=== PATIENT | male | born 1955 | race Caucasian/White ===

== ENCOUNTER 2023-04-01 15:45 | Emergency (ER) | payer OTHER ==
[~2023-04-01] VITALS: Ht 177.8 cm; Wt 29.7 kg
[2023-04-01 17:25] LABS: Basophils # (auto) 0.1 10 ^3/uL (0-0.2); Basophils % (auto) 0.5 % (0.0-2.0); Eosinophils # (auto) 0 10 ^3/uL (0-0.8); Eosinophils % (auto) 0.1 % (0.0-7.0); Hematocrit 44.5 % (41.0-53.0); Hemoglobin 14.9 g/dL (13.5-17.5); Lymphocytes # (auto) 1.4 10 ^3/uL (0.4-5.4); Lymphocytes % (auto) 13.7 % (10.0-50.0); Mean Corpuscular Hemoglobin 29.1 pg (28.0-32.0); Mean Corpuscular Hgb Conc. 33.5 g/dL (32.0-36.0); Mean Corpuscular Volume 86.9 fL (80.0-100.0); Monocytes # (auto) 0.5 10 ^3/uL (0-1.3); Monocytes % (auto) 4.4 % (0.0-12.0); Neutrophils # (auto) 8.5 10 ^3/uL (1.6-8.6); Neutrophils % (auto) 81.3 % (37.0-80.0); Red Blood Cells 5.12 10^6/uL (4.5-5.90); Red Cell Distribution Width 14.3 % (11.8-14.3); White Blood Cell 10.4 10^3/uL (4.4-10.8)
[2023-04-01 17:41] LABS: Alanine Aminotransferase 54 U/L (7-40); Alkaline Phosphatase 110 U/L (46-116); Anion Gap 10 (5-15); Aspartate Aminotransferase 30 U/L (13-40); BUN/Creatinine Ratio 13.1 (10.0-20.0); Bilirubin, Total 0.8 mg/dL (0.2-1.0); Blood Urea Nitrogen 19 mg/dL (9-23); Calcium 10.2 mg/dL (8.5-10.1); Carbon Dioxide 26 mmol/L (20-30); Chloride 103 mmol/L (98-107); Glucose 228 mg/dL (74-106); Potassium 4.9 mmol/L (3.5-5.1); Sodium 139 mmol/L (136-145); Total Protein 7.8 g/dL (5.7-8.2)
[2023-04-01 18:20] LABS: Urine Bacteria NONE SEEN /hpf (None Seen); Urine Blood Negative /uL (Negative); Urine Clarity Clear (Clear); Urine Color Yellow (Yellow); Urine Mucus FEW (None Seen); Urine Protein, UAD TRACE (Negative); Urine Specific Gravity 1.028 (1.001-1.035); Urine Urobilinogen Normal (Negative); Urine WBC <1 /hpf (0 - 3)
[2023-04-01] MEDS ORDERED: PANTOPRAZOLE 40 MG/10 ML VIAL INJ IV ONE (22:00)
[2023-04-01] MEDS ORDERED: SODIUM CHLORIDE 0.9% 1,000 ML IVB ONE (22:00)
[2023-04-01] MEDS ORDERED: ONDANSETRON HCL 4 MG/2 ML VIAL IV ONE (22:00)
[2023-04-02 00:43] VITALS: BP 161/95; PULSE 101; RESP 18; TEMP 98.1; O2SAT 98
[2023-04-02] MEDS ORDERED: ONDANSETRON HCL 4 MG/2 ML VIAL IV PRN (07:30)
[2023-04-02] MEDS ORDERED: LABETALOL HCL 5 MG/ML 4ML SYRINGE IV PRN (07:30)
== END 2023-04-02 01:16 | disposition left against medical advice (07) ==
LOC: ER 15:45
DX: R53.1 Weakness (principal); R11.10 Vomiting, unspecified; E11.65 Type 2 diabetes mellitus with hyperglycemia; I10 Essential (primary) hypertension; M54.2 Cervicalgia
CPT/HCPCS: 36415; 70450; 71045; 71250; 72125; 74176; 80053; 81001; 82962; 83880; 84484; 85025; 93005; 96361; 96374; 96375; 99285; C9113; J2405; J7030

== ENCOUNTER 2024-08-20 18:56 | Inpatient (IN) | payer MEDICARE, MEDICAID ==
[~2024-08-20] VITALS: Ht 185.4 cm; Wt 54.0 kg
[2024-08-20 19:32] LABS: Basophils # (auto) 0 10 ^3/uL (0-0.2); Basophils % (auto) 0.7 % (0.0-2.0); Eosinophils # (auto) 0 10 ^3/uL (0-0.8); Eosinophils % (auto) 0.6 % (0.0-7.0); Hematocrit 31.7 % (41.0-53.0); Hemoglobin 10.8 g/dL (13.5-17.5); Lymphocytes # (auto) 0.9 10 ^3/uL (0.4-5.4); Lymphocytes % (auto) 13.3 % (10.0-50.0); Mean Corpuscular Hemoglobin 29.3 pg (28.0-32.0); Mean Corpuscular Hgb Conc. 34.1 g/dL (32.0-36.0); Mean Corpuscular Volume 86.1 fL (80.0-100.0); Monocytes # (auto) 0.7 10 ^3/uL (0-1.3); Monocytes % (auto) 9.4 % (0.0-12.0); Neutrophils # (auto) 5.3 10 ^3/uL (1.6-8.6); Platelet Count (auto) 258 10^3/uL (140-450); Red Blood Cells 3.69 10^6/uL (4.5-5.90); Red Cell Distribution Width 14.6 % (11.8-14.3)
[2024-08-20 19:34] VITALS: PULSE 94; RESP 16; O2SAT 97
--- NOTE | 2024-08-20 19:43 | ED.PDOC ---
History of Present Illness HPI Comments HPI: Past Medical History:encephalopathy, hypertension, cerebral infarction due to embolism of unspecified cerebral artery, unspecified nondisplaced fracture of surgical neck of left humerus, dementia, CVA, psychosis, diabetes, high lipids, Plavix, thyroid disease, full code Past Surgical History: Denies any Medication: Midodrine, Seroquel HPI: Poor Historian. 69-year-old male presents to the emergency department [facility] for history of stroke with deficit and dementia. Patient himself denies any symptoms at does not know why he is in the hospital. EMS states that the patient was transferred here for abnormal labs but they do not know where they abnormal labs were. They said that the PCP ordered labs and notified the sister of the patient and the sister notified the facility and the facility sent the patient to the ER for further evaluation however nobody knows what these abnormal labs are. REVIEW OF SYSTEMS: Review of system is limited given the patient's history of dementia. CONSTITUTIONAL: Denies acute: fever, diaphoresis, chills, generalized weakness. HEAD: Denies acute: headache, photophobia Eyes: Denies acute: Double vision, vision loss, eye pain, eye discharge. EARS: Denies acute: tinnitus, hearing loss, ear discharge, ear pain, THROAT: Denies acute: sore throat, swelling, difficulty swallowing , pain with swallowing, change in voice. NECK: Denies acute: neck pain, neck swelling, stiff neck. HEART: Denies acute : chest pain, palpitations, LUNGS: Denies acute: SOB, wheezing, cough, hemoptysis ABDOMEN: Denies acute: abdominal pain, Nausea, Vomiting, diarrhea, melena , hematemesis, hematochezia SKIN: Denies acute: rash, redness, lesions, itchiness. EXTREMITIES: Denies acute: calf pain, numbness, tingling, weakness, denies pain in extremity. Denies acute: Low back pain. Neuro: Denies acute: focal neurological deficit, motor or sensory focal neurological deficit, tremors, seizure like activity, confusion, dizziness, change in mental status, loss of bowel or bladder function, cauda equina like symptoms. : Denies acute: dysuria, hematuria, flank pain, increase in urinary frequency. PSYCH: Denies acute: hallucination, suicidal ideation, homicidal ideation. PHYSICAL EXAM: General: ----no-acute distress, awake and alert. Head: normocephalic, atraumatic. Neck: supple, trachea is midline, no swelling. Throat: Normal phonation. Eyes:, no erythema, no purulent discharge, no proptosis, no icterus. Heart: regular rate, regular rhythm, no significant murmur appreciated. Lungs: no apparent respiratory distress, Able to speak in full sentences. No wheezing, no rhonchi, no crackles. No stridors Clear to auscultation bilaterally. Abdomen: non tender to palpation, non distended, soft, no guarding, no rebound, + bowel sounds. Noted left sided shingles like rash at the left lower ribcage area Neuro: Awake, Alert, oriented to name, self, , follows commands GCS=15. Speech is normal. Skin: no petechia, no purpura, no cyanosis, non-pale, not jaundice. Lower extremities: --no - Pitting edema no deformity, no focal swelling, no calf TTP. Makes eye contact. moves all four extremities. Face: no apparent facial droop. ED COURSE: Chief Complaint: Abnormal LAB's Time Seen by MD: 19:05 Primary Care Provider: LUIS Jarrett Notes: Nurses Notes, Medications, Allergies Allergies: Coded Allergies: NO KNOWN ALLERGIES (Unverified , 04/01/23) Information Source: Patient Mode of Arrival: EMS Severity: Moderate Timing: Came on: Gradually Duration: Since onset Prehospital treatment: None Past Medical History PAST MEDICAL HISTORY: CVA, Dementia, DM, High Lipids, Hypotension, Thyroid (Disease) Past Medical History (Other): encephalopathy, cerebral infarction due to embolism of unspecified cerebral artery, unspecified nondisplaced fracture of surgical neck of left humerus, psycnosis, Plavix, DNR Surgical History: Unknown Family History Family History: Unknown Social History Smoker: Unknown Alcohol: Unknown Drugs: Unknown Lives In: Home Was a procedure done? Was a procedure done?: No Differential Dx Considerations may include: Includes but not limited to thyroid disease, encephalopathy, electrolyte abnormality, sepsis, infection, intracranial pathology, drug adverse effects, arrhythmia, kidney insufficiency, ACS, CVA, malignancy, anemia X-Ray, Labs, Meds, VS Vital Signs Date Time Temp Pulse Resp B/P (MAP) Pulse Ox O2 Delivery O2 Flow Rate FiO2 08/20/24 20:00 93 17 142/86 (104) 98 08/20/24 19:34 94 16 97 Room Air* 0 21 08/20/24 19:27 97.8 94 17 157/66 (96) 98 97.8 08/20/24 19:02 98.8 92 16 145/82 (103) 100 98.8 Lab Test 08/20/24 20:19 08/20/24 19:33 08/20/24 19:06 Range/Units Troponin I High Sensitivity 14 15 </=54 ng/L POC Glucose 190 H 70-106 mg/dl White Blood Count 7.0 4.4-10.8 10^3/uL Red Blood Count 3.69 L 4.5-5.90 10^6/uL Hemoglobin 10.8 L 13.5-17.5 g/dL Hematocrit 31.7 L 41.0-53.0 % Mean Corpuscular Volume 86.1 80.0-100.0 fL Mean Corpuscular Hemoglobin 29.3 28.0-32.0 pg Mean Corpuscular Hemoglobin Concent 34.1 32.0-36.0 g/dL Red Cell Distribution Width 14.6 H 11.8-14.3 % Platelet Count 258 140-450 10^3/uL Mean Platelet Volume 7.9 6.9-10.8 fL Neutrophils (%) (Auto) 76.0 37.0-80.0 % Lymphocytes (%) (Auto) 13.3 10.0-50.0 % Monocytes (%) (Auto) 9.4 0.0-12.0 % Eosinophils (%) (Auto) 0.6 0.0-7.0 % Basophils (%) (Auto) 0.7 0.0-2.0 % Neutrophils # (Auto) 5.3 1.6-8.6 10 ^3/uL Lymphocytes # (Auto) 0.9 0.4-5.4 10 ^3/uL Monocytes # (Auto) 0.7 0-1.3 10 ^3/uL Eosinophils # (Auto) 0 0-0.8 10 ^3/uL Basophils # (Auto) 0 0-0.2 10 ^3/uL Nucleated Red Blood Cells 0.0 % Sodium Level 141 136-145 mmol/L Potassium Level 4.6 3.5-5.1 mmol/L Chloride Level 106 98-107 mmol/L Carbon Dioxide Level 17 L 20-31 mmol/L Anion Gap 18 H 5-15 Blood Urea Nitrogen 127 *H 9-23 mg/dL Creatinine 7.93 H 0.700-1.30 mg/dL Glomerular Filtration Rate Calc 7 >90 mL/min BUN/Creatinine Ratio 16.0 10.0-20.0 Serum Glucose 194 H 74-106 mg/dL Lactic Acid Level 1.6 0.4-2.0 mmol/L Calcium Level 8.1 L 8.7-10.4 mg/dL Magnesium Level 2.0 1.6-2.6 mg/dL Total Bilirubin 0.2 0.2-1.0 mg/dL Aspartate Amino Transferase (AST) 20 13-40 U/L Alanine Aminotransferase (ALT) 25 7-40 U/L Alkaline Phosphatase 140 H 46-116 U/L Total Protein 7.1 5.7-8.2 g/dL Albumin 4.5 3.2-4.8 g/dL Lipase 519 H 12-53 U/L Current Medications Medications (Trade) Dose Ordered Sig/Danielle Route Start Time Stop Time Status Last Admin Sodium Chloride 1,000 ml @ 1,000 mls/hr Q1H ONCE IV 08/20/24 20:30 08/20/24 21:29 DC 08/20/24 20:35 Sodium Chloride 1,000 ml @ 1,000 mls/hr Q1H ONCE IV 08/20/24 20:30 08/20/24 21:29 DC 08/20/24 20:36 [place] [id number] Ph: [phone] DIAGNOSTIC IMAGING Diagnostic Imaging Report : [id number] Signed PATIENT: SURESH JOHNSTONACCT: [id number] UNIT: [id number] : 1955 LOC: ER ROOM / BED: / AGE / SEX: 69 / M ADM STATUS: REG ER SERVICE [id number] ORDERING PHYSICIAN: KARLOS SELLERS DO PROCEDURE(s): CXRP - CHEST PORTABLE REASON: abnormal labs ORDER NUMBER(s): [id number], ACCESSION NUMBER(s): [id number] CHEST RADIOGRAPH Indication: abnormal labs Technique: Single frontal view of the chest was obtained COMPARISON: XY CHEST PORTABLE on DOS: 04/01/23 FINDINGS: Lines and Tubes: None Lungs: Clear Pleura: No effusion. No pneumothorax. Cardiomediastinal contours: Unremarkable IMPRESSION: No acute disease. No significant change compared to the prior chest x-ray from March 2023. ATED BY: AHSAN THOMASON MD DICTATED DATE/TIME: 08/20/241999 SIGNED BY: AHSAN THOMASON MD SIGNED DATE/TIME: 08/20/241999 CC: Time of 1ST Reevaluation: 19:35 Reevaluation 1ST: Unchanged Time of 2ND Reevaluation: 20:47 (Patient in no acute distress. Patient denies any abdominal pain.) Time of 3RD Reevaluation: 20:59 (The case was discussed with the admitting team (HPI, physical exam, labs and diagnostic tests that were available at the time of disposition, ED course, treatment plan) on the phone. They agreed to admit the patient to their service and assume care of this patient from this point f orward. --- Rod) Reevaluation 3RD: Unchanged Patient Education/Counseling: Diagnosis, Treatment, Prognosis Family Education/Counseling: No Family Present Comments Patient presented with the above HPI.---abnormal labs---workup was initiated. patient was found with the above mentioned diagnosis. the following medications were ordered: please refer to order lists of meds and tests obtained by myself Dr. Sellers. Patient ED course and VS have been stabilized. Patient has been reassessed in the ED and remained in a stable condition. Pertinent incidental findings were discussed with the patient and/or family. Patient has been observed in the ED adequate length of time to insure improvement/stability. Escalation of care considered: Consideration of escalation to observation or admission A consult for Nephrology was placed. Patient was given fluid hydration. Patient was ADMITTED to the medicine team for further evaluation and treatment of their presentation. Initially to Dr. Velasco as [employer] patient but later discovered to be a hospitalist patient. All the reports of any imaging studies that were ordered by myself were reviewed by myself. Departure 1 Departure Time of Disposition: 20:23 Impression: Primary Impression: Acute renal failure Additional Impressions: Elevated lipase Shingles Disposition: ADMITTED INPATIENT Admit to: Tele Condition: Guarded Discharged With: Self Critical Care Note Critical Care Time?: Yes (1 hr-critical care time only) Heart Score Heart Score: Heart Score Response (Comments) Value History N/A 0 EKG N/A 0 Age N/A 0 Risk Factors N/A 0 Troponin N/A 0 Total 0 I personally scribed for KARLOS SELLERS DO ([email or web address]) on 08/20/24 at 19:43. Electronically submitted by Zack Alexander ([email or web address]). I personally scribed for KARLOS SELLERS DO ([email or web address]) on 08/20/24 at 20:14. Electronically submitted by Zack Alexander ([email or web address]). KARLOS SELLERS DO August 20, 2024 19:43
[2024-08-20 19:52] LABS: Alanine Aminotransferase 25 U/L (7-40); Albumin 4.5 g/dL (3.2-4.8); Anion Gap 18 (5-15); Aspartate Aminotransferase 20 U/L (13-40); Chloride 106 mmol/L (98-107); Potassium 4.6 mmol/L (3.5-5.1); Sodium 141 mmol/L (136-145); Total Protein 7.1 g/dL (5.7-8.2)
--- NOTE | 2024-08-20 20:02 | DVH ---
CHEST RADIOGRAPH Indication: abnormal labs Technique: Single frontal view of the chest was obtained COMPARISON: XY CHEST PORTABLE on DOS: 04/01/23 FINDINGS: Lines and Tubes: None Lungs: Clear Pleura: No effusion. No pneumothorax. Cardiomediastinal contours: Unremarkable IMPRESSION: No acute disease. No significant change compared to the prior chest x-ray from March 2023.
[2024-08-20 20:11] LABS: Alkaline Phosphatase 140 U/L (46-116); Bilirubin, Total 0.2 mg/dL (0.2-1.0); Calcium 8.1 mg/dL (8.7-10.4); Carbon Dioxide 17 mmol/L (20-31); Glucose 194 mg/dL (74-106); Lipase 519 U/L (12-53)
[2024-08-20 20:14] LABS: Blood Urea Nitrogen 127 mg/dL (9-23)
[2024-08-20] MEDS: SODIUM CHLORIDE 0.9% 1,000 ML IV ONE ×2 (20:35→20:36)
--- NOTE | 2024-08-20 21:57 | DVHHP2 ---
History of Present Illness Reason for Visit: Acute renal failure History of Present Illness The patient is a 69 year male with multiple past medical history including hypertension, DM, cerebral infarct, dementia, psychosis, and encephalopathy presented to [facility] ED for evaluation of abnormal labs value. [facility] for further evaluation abnormal labs. Patient was seen and evaluated in the ED, laboratory data shows WBC 7.0, hemoglobin 10.8, hematocrit 31.7, platelets 258, sodium 141, potassium 4.6, BUN 127, creatinine 7.93, glucose 194, anion gap 18, lipase 519, troponin 14, calcium 8.1, lactic acid 1.6, blood pressure 142/86, heart rate 93, temperature 97.8 F, O2 saturation 98% on room air. Patient was found to have acute renal failure, please see medication orders section in the computer. On my assessment, patient denied chest pain, no headache, no dizziness, no diaphoresis, no shortness of breath, no nausea, no vomiting, no fever, no chills. Patient was admitted for further evaluation and medical management. Past Medical History Encephalopathy, hypertension, cerebral infarction due to embolism of unspecified cerebral artery, dementia, CVA, psychosis, diabetes, high lipids, thyroid disease. Past Surgical History Unspecified nondisplaced fracture of surgical neck of left humerus Family History Reviewed, noncontributory to the management of this case. Past Social History The patient lives at home, denies smoking, alcohol or illicit drugs abuse. Review of Systems Constitutional: Yes: Weakness; No: Fever, Chills, Sweats, Malaise, Other Eyes: No: Pain, Vision change, Conjunctivae inflammation, Eyelid inflammation, Other, Redness ENT: No: Ear pain, Ear discharge, Nose pain, Nose discharge, Nose congestion, Mouth pain, Mouth swelling, Throat pain, Throat swelling, Other Respiratory: No: Cough, Dry, Shortness of breath, SOB with excertion, Wheezing, Hemoptysis, Pleuritic Pain, Sputum, Wheezing, Other Cardiovascular: No: Chest Pain, Palpitations, Orthopnea, Paroxysmal Noc. Dyspnea, Edema, Lt Headedness, Other Gastrointestinal: No: Nausea, Vomiting, Abdominal Pain, Diarrhea, Constipation, Melena, Hematochezia, Other Genitourinary: No Dysuria, No Frequency, No Incontinence, No Hematuria, No Retention, No Other Musculoskeletal: No: other, neck pain, shoulder pain, arm pain, back pain, hand pain, leg pain, foot pain Skin: No: Rash, Lesions, Jaundice, Bruising, Other Neurological: No: Weakness, Numbness, Incoordination, Change in speech, Confusion, Seizures, Other Allergies: Coded Allergies: NO KNOWN ALLERGIES (Unverified , 04/01/23) Exam Vital Signs Vital Signs Date Time Temp Pulse Resp B/P (MAP) Pulse Ox O2 Delivery O2 Flow Rate FiO2 08/20/24 20:00 93 17 142/86 (104) 98 08/20/24 19:34 Room Air* 0 21 08/20/24 19:27 97.8 97.8 General Appearance: Alert, Oriented X3, Cooperative, No acute distress HEENT: Atraumatic, PERRLA, EOMI, Mucous membr. moist/pink Respiratory: Normal air movement Cardiovascular: Regular rate, Normal S1, Normal S2, No murmurs Abdominal: Normal bowel sounds, Soft, No tenderness, No hepatospenomegaly, No masses Extremities: No clubbing, No cyanosis, No edema, Normal pulses, No tend erness/swelling Skin: No rashes, No breakdown, No significant lesion Neuro: Normal speech, Normal tone, Sensation intact, Cranial nerves 3-12 NL, Reflexes 2+, Other (Generalized weakness) Psych/Mental Status: Mental status NL, Mood NL Labs/Xrays Labs Test 08/20/24 20:19 08/20/24 19:33 08/20/24 19:06 Range/Units Troponin I High Sensitivity 14 </=54 ng/L POC Glucose 190 H 70-106 mg/dl White Blood Count 7.0 4.4-10.8 10^3/uL Red Blood Count 3.69 L 4.5-5.90 10^6/uL Hemoglobin 10.8 L 13.5-17.5 g/dL Hematocrit 31.7 L 41.0-53.0 % Mean Corpuscular Volume 86.1 80.0-100.0 fL Mean Corpuscular Hemoglobin 29.3 28.0-32.0 pg Mean Corpuscular Hemoglobin Concent 34.1 32.0-36.0 g/dL Red Cell Distribution Width 14.6 H 11.8-14.3 % Platelet Count 258 140-450 10^3/uL Mean Platelet Volume 7.9 6.9-10.8 fL Neutrophils (%) (Auto) 76.0 37.0-80.0 % Lymphocytes (%) (Auto) 13.3 10.0-50.0 % Monocytes (%) (Auto) 9.4 0.0-12.0 % Eosinophils (%) (Auto) 0.6 0.0-7.0 % Basophils (%) (Auto) 0.7 0.0-2.0 % Neutrophils # (Auto) 5.3 1.6-8.6 10 ^3/uL Lymphocytes # (Auto) 0.9 0.4-5.4 10 ^3/uL Monocytes # (Auto) 0.7 0-1.3 10 ^3/uL Eosinophils # (Auto) 0 0-0.8 10 ^3/uL Basophils # (Auto) 0 0-0.2 10 ^3/uL Nucleated Red Blood Cells 0.0 % Sodium Level 141 136-145 mmol/L Potassium Level 4.6 3.5-5.1 mmol/L Chloride Level 106 98-107 mmol/L Carbon Dioxide Level 17 L 20-31 mmol/L Anion Gap 18 H 5-15 Blood Urea Nitrogen 127 *H 9-23 mg/dL Creatinine 7.93 H 0.700-1.30 mg/dL Glomerular Filtration Rate Calc 7 >90 mL/min BUN/Creatinine Ratio 16.0 10.0-20.0 Serum Glucose 194 H 74-106 mg/dL Lactic Acid Level 1.6 0.4-2.0 mmol/L Calcium Level 8.1 L 8.7-10.4 mg/dL Magnesium Level 2.0 1.6-2.6 mg/dL Total Bilirubin 0.2 0.2-1.0 mg/dL Aspartate Amino Transferase (AST) 20 13-40 U/L Alanine Aminotransferase (ALT) 25 7-40 U/L Alkaline Phosphatase 140 H 46-116 U/L Total Protein 7.1 5.7-8.2 g/dL Albumin 4.5 3.2-4.8 g/dL Lipase 519 H 12-53 U/L PATIENT: SURESH JOHNSTONACCT: [id number] UNIT: [id number] : 1955 LOC: ER ROOM / BED: / AGE / SEX: 69 / M ADM STATUS: REG ER SERVICE [id number] ORDERING PHYSICIAN: KARLOS SELLERS DO PROCEDURE(s): CXRP - CHEST PORTABLE REASON: abnormal labs ORDER NUMBER(s): [id number], ACCESSION NUMBER(s): [id number] CHEST RADIOGRAPH Indication: abnormal labs Technique: Single frontal view of the chest was obtained COMPARISON: XY CHEST PORTABLE on DOS: 04/01/23 FINDINGS: Lines and Tubes: None Lungs: Clear Pleura: No effusion. No pneumothorax. Cardiomediastinal contours: Unremarkable IMPRESSION: No acute disease. No significant change compared to the prior chest x-ray from March 2023. Assessment/Plan Assessment/Plan Acute renal failure Elevated lipase Generalized weakness Diabetes mellitus with hyperglycemia Plan 1. Admit to telemetry units 2. Breathing treatment 3. Pain control management 4. Management of fluids and electrolytes 5. Consultation for Nephrology/hospitalist 6. Diagnostic tests chest x-ray 7. DVT prophylaxis-on aspirin 8. Repeat labs CBC, CMP in a.m. 9. Continue with current medical management 10. Treatment plan discussed with patient and RN. Patient verbalized understanding. Plan discussed with: Patient, Other (RN) My Orders Orders - VESNA BARKLEY DNP Procedure Category Date Status Time Consistent DIET 08/21/24 Verified Carb(Ccho)Diabetes Breakfast Atorvastatin (Lipitor) PHA 08/20/24 Verified 22:00 Aspirin Tablet PHA 08/21/24 Verified 10:00 Levothyroxine Tablet PHA 08/21/24 Verified (Synthroid Tablet) 06:00 Thyroid Stimulating LAB 08/21/24 Verified Hormone 04:00 Memantine Tablet PHA 08/21/24 Verified (Namenda Tablet) 10:00 Hydralazine Injection PHA 08/20/24 Verified (Apresoline Inject 22:00 Amlodipine Tablet PHA 08/21/24 Verified (Norvasc Tablet) 10:00 Lorazepam 2mg/Ml Inj PHA 08/20/24 Verified (Ativan Inj) 22:00 Glucose Blood PHA 08/21/24 Verified (Accu-Chek Comfort 00:00 Moderate Insulin Ss PHA 08/21/24 Verified 00:00 Dextrose 50% Syringe PHA 08/20/24 Verified 22:00 Admit ADMIT 08/20/24 Verified 21:49 Allergies TONYA 08/20/24 Verified 21:49 Code Status CODE 08/20/24 Verified 21:49 0.9% Ns 1000 Ml PHA 08/20/24 Verified 22:00 Oxygen Per Hour RT 08/20/24 Verified 21:49 Hydrocodone-Acet PHA 08/20/24 Verified 5/325mg Tab ([place] 22:00 Problem List: (1) Acute renal failure (2) Elevated lipase (3) Generalized weakness (4) Diabetes mellitus with hyperglycemia Date of Service: August 20, 2024 Billing Provider: VESNA BARKLEY DNP Common Visit Codes: [id number] INP/OBS CARE (HIGH) VESNA BARKLEY DNP August 20, 2024 21:57
[2024-08-20] MEDS ORDERED: ONDANSETRON HCL 4 MG/2 ML VIAL IV PRN (22:00)
[2024-08-20] MEDS ORDERED: MORPHINE SULFATE INJ 2 MG/ml SYRG IV PRN (22:00)
[2024-08-20] MEDS ORDERED: ACETAMINOPHEN 325 MG TAB PO PRN (22:00)
[2024-08-20] MEDS ORDERED: DOCUSATE SOD 100 MG CAP PO PRN (22:00)
[2024-08-20] MEDS ORDERED: NITROGLYCERIN 0.4 MG SL TAB SL PRN (22:00)
[2024-08-20] MEDS ORDERED: DEXTROSE (50%) 50ML SYRG IV PRN (22:00)
[2024-08-20] MEDS: ATORVASTATIN 20 MG TAB PO SCH (22:22)
[2024-08-20] MEDS: HYDROcodone-ACET 5/325MG TAB PO PRN (22:22)
[2024-08-20] MEDS: SODIUM CHLORIDE 0.9% 1,000 ML IV SCH (22:22)
[2024-08-21] MEDS: InsuLIN REG 1unit/0.01ml Soln (100units/ml) SC SCH
[2024-08-21] MEDS: ACCU-CHEK COMFORT CURVE STRIP VI SCH (00:10)
[2024-08-21] MEDS: CALCIUM GLUC 1,000mg/50ml-NS 50 ML IV ONE (00:44)
--- NOTE | 2024-08-21 01:02 | DVH ---
Exam: CT CT AB PEL WO CON-NO ORAL OR IV History: Elevated lipase Comparison Study: CT CHST AB PEL WO CON-NO IV/ORAL on DOS: 04/01/23 Technique: Multidetector spiral CT of the abdomen was performed from lung bases to pubic symphysis. Imaging was performed without IV contrast. Axial, coronal and sagittal multiplanar reformats were ob tained from the axial data set by the technologist. Radiation Dose : 1. Abdomen/Pelvis: CTDIvol mGy, DLP mGy*cm. Findings: Evaluation of solid organs is limited due to lack of intravenous contrast use. Lung Bases: No abnormality demonstrated. Liver: Liver is normal in size. No definite focal lesions noted. Gallbladder and Biliary Tree: No abnormality demonstrated. Spleen: No abnormality demonstrated. Pancreas: No abnormality demonstrated. Adrenal Glands: No abnormality demonstrated. Kidneys: No abnormality demonstrated. Bladder: Grossly unremarkable for degree of distention. Bowel: Stomach appears grossly unremarkable. No abnormally dilated or thick-walled loops are large or small bowel noted. Moderate amount of stool present throughout the large bowel. Appendix is not vis ualized; however, no secondary findings of acute appendicitis identified. Ascites: Absent Lymphadenopathy: No evidence of lymphadenopathy. Abdominal Wall and Mesentery: Unremarkable. Vasculature: Mild Atherosclerotic changes in abdominal aorta and iliac arteries without aneurysmal di latation. Pelvic Organs: Unremarkable Musculoskeletal: No bony lesions or fracture. Bones appear osteopenic. Mild lumbar spondylosis withou t significant spinal canal stenosis. IMPRESSION: 1. No acute abdominal or pelvic findings. 2. Radiation optimization: All CT scans at this facility use at least one of these dose optimization techniques: automated exposure control mA and/or kV adjustment per patient size (includes targeted e xams where dose is matched to clinical indication) or iterative reconstruction.
[2024-08-21 01:15] VITALS: PULSE 85; RESP 12; O2SAT 98
[2024-08-21 05:29] LABS: Basophils # (auto) 0.1 10 ^3/uL (0-0.2); Basophils % (auto) 0.7 % (0.0-2.0); Eosinophils # (auto) 0.1 10 ^3/uL (0-0.8); Eosinophils % (auto) 1.8 % (0.0-7.0); Hematocrit 31.8 % (41.0-53.0); Hemoglobin 10.9 g/dL (13.5-17.5); Lymphocytes # (auto) 1.8 10 ^3/uL (0.4-5.4); Mean Corpuscular Hemoglobin 29.4 pg (28.0-32.0); Mean Corpuscular Hgb Conc. 34.5 g/dL (32.0-36.0); Mean Corpuscular Volume 85.2 fL (80.0-100.0); Monocytes # (auto) 0.7 10 ^3/uL (0-1.3); Monocytes % (auto) 9.7 % (0.0-12.0); Neutrophils # (auto) 4.6 10 ^3/uL (1.6-8.6); Neutrophils % (auto) 62.8 % (37.0-80.0); Platelet Count (auto) 248 10^3/uL (140-450); Red Blood Cells 3.73 10^6/uL (4.5-5.90); Red Cell Distribution Width 14.2 % (11.8-14.3); White Blood Cell 7.4 10^3/uL (4.4-10.8)
[2024-08-21 05:51] LABS: Alanine Aminotransferase 22 U/L (7-40); Albumin 4.6 g/dL (3.2-4.8); Anion Gap 17 (5-15); Aspartate Aminotransferase 20 U/L (13-40); BUN/Creatinine Ratio 15.9 (10.0-20.0); Chloride 106 mmol/L (98-107); Potassium 4.4 mmol/L (3.5-5.1); Sodium 142 mmol/L (136-145); Total Protein 7.3 g/dL (5.7-8.2)
[2024-08-21 05:52] LABS: Bilirubin, Total 0.3 mg/dL (0.2-1.0)
[2024-08-21 05:54] LABS: Alkaline Phosphatase 138 U/L (46-116); Carbon Dioxide 19 mmol/L (20-31); Glucose 127 mg/dL (74-106)
[2024-08-21 05:56] LABS: Blood Urea Nitrogen 116 mg/dL (9-23)
[2024-08-21] MEDS: LEVOTHYROXINE SODIUM 100 MCG TAB PO SCH (06:32)
[2024-08-21 08:00] VITALS: PULSE 88; RESP 19; O2SAT 98
[2024-08-21] MEDS: MEMANTINE HCL 5 MG TAB PO SCH (10:07)
[2024-08-21] MEDS: amLODIPine BESYLATE 5 MG TAB PO SCH (10:07)
[2024-08-21] MEDS: ASPirin 81 mg TAB PO SCH (10:07)
[2024-08-21] MEDS: hydrALAZINE HCL 20 MG/ML VL IV PRN (11:14)
--- NOTE | 2024-08-21 13:57 | DVHPN2 ---
Subjective The patient is seen and examined at bedside. Complain of abdominal pain. Reviewed: Care Plan, H&P, Labs, Medications, Previous Orders, Radiology Changes from previous H/P or p: No Changes Eyes: No Pain, No Vision change, No Conjunctivae inflammation, No Eyelid inflammation, No Other, No Redness ENT: No Ear pain, No Ear discharge, No Nose pain, No Nose discharge, No Nose congestion, No Mouth pain, No Mouth swelling, No Throat pain, No Throat swelling, No Other Cardiovascular: No Chest Pain, No Palpitations, No Orthopnea, No Paroxysmal Noc. Dyspnea, No Edema, No Lt Headedness, No Other Respiratory: No Cough, No Dry, No Shortness of breath, No SOB with excertion, No Wheezing, No Hemoptysis, No Pleuritic Pain, No Sputum, No Other Gastrointestinal: No Nausea, No Vomiting, No Abdominal Pain, No Diarrhea, No Constipation, No Melena, No Hematochezia, No Other Genitourinary: No Dysuria, No Frequency, No Incontinence, No Hematuria, No Retention, No Other Musculoskeletal: No other, No neck pain, No shoulder pain, No arm pain, No back pain, No hand pain, No leg pain, No foot pain Skin: No Rash, No Lesions, No Jaundice, No Bruising, No Other Objective Vitals Vital Signs Date Time Temp Pulse Resp B/P (MAP) Pulse Ox O2 Delivery O2 Flow Rate FiO2 08/21/24 12:00 98.1 88 15 154/73 (100) 98 98.1 08/21/24 08:00 Room Air* 0 21 Intake/Output Intake and Output 08/21/24 07:00 Intake Total 2170 ml Output Total 600 ml Balance 1570 ml Intake IV Total 2170 ml Output Urine Total 500 ml Stool Total 100 ml General Appearance: Alert, Oriented X3, Cooperative, No acute distress HEENT: Atraumatic, PERRLA, EOMI, Mucous membr. moist/pink Neck: Supple Lungs: Clear to auscultation, Normal air movement Cardiovascular: Regular rate, Normal S1, Normal S2, No murmurs, Gallops, Rubs Abdomen: Normal bowel sounds, Soft Neuro: Cranial nerves 3-12 NL Psych/Mental Status: Mental status NL Medications Current Medications Medications Dose Ordered Sig/Danielle Route Start Time Stop Time Status Last Admin Dose Admin Atorvastatin Calcium 10 mg HS PO 08/20/24 22:00 08/20/24 22:22 10 MG Aspirin 81 mg DAILY PO 08/21/24 10:00 08/21/24 10:07 81 MG Levothyroxine Sodium 100 mcg QAM@0600 PO 08/21/24 06:00 08/21/24 06:32 100 MCG Memantine 5 mg DAILY PO 08/21/24 10:00 08/21/24 10:07 5 MG Hydralazine HCl 10 mg Q6HP PRN IV 08/20/24 22:00 08/21/24 11:14 10 MG Amlodipine Besylate 5 mg DAILY PO 08/21/24 10:00 08/21/24 10:07 5 MG Lorazepam 0.5 mg Q8HP PRN IV 08/20/24 22:00 Diagnostic Test (Pha) 1 strip IQ4HR 08/21/24 00:00 08/21/24 12:16 1 STRIP Insulin Human Regular IQ4HR SC 08/21/24 00:00 Dextrose 50 ml UD PRN IV 08/20/24 22:00 Sodium Chloride 1,000 ml @ 120 mls/hr Q8H20M IV 08/20/24 22:00 08/20/24 22:22 120 MLS/HR Acetaminophen/ Hydrocodone Bitart 1 tab Q4HP PRN PO 08/20/24 22:00 08/20/24 22:22 1 TAB Ondansetron HCl 4 mg Q4HP PRN IV 08/20/24 22:00 Docusate Sodium 100 mg BIDPRN PRN PO 08/20/24 22:00 Acetaminophen 650 mg Q6HP PRN PO 08/20/24 22:00 Nitroglycerin 0.4 mg Q5MINP PRN SL 08/20/24 22:00 Morphine Sulfate 2 mg Q30M PRN IV 08/20/24 22:00 Laboratory Results Laboratory Tests 08/21/24 05:13 Chemistry Test 08/20/24 19:06 08/21/24 05:13 Albumin 4.5 g/dL (3.2-4.8) 4.6 g/dL (3.2-4.8) Calcium Level 8.1 mg/dL (8.7-10.4) L 9.0 mg/dL (8.7-10.4) Magnesium Level 2.0 mg/dL (1.6-2.6) Total Protein 7.1 g/dL (5.7-8.2) 7.3 g/dL (5.7-8.2) Lipid panel Test 08/20/24 19:06 Lipase 519 U/L (12-53) H LFT Test 08/20/24 19:06 08/21/24 05:13 Alanine Aminotransferase (ALT) 25 U/L (7-40) 22 U/L (7-40) Alkaline Phosphatase 140 U/L (46-116) H 138 U/L (46-116) H Aspartate Amino Transferase (AST) 20 U/L (13-40) 20 U/L (13-40) Total Bilirubin 0.2 mg/dL (0.2-1.0) 0.3 mg/dL (0.2-1.0) HgA1c, TSH Test 08/21/24 05:13 Thyroid Stimulating Hormone (TSH) 0.04 uIU/mL (0.55-4.78) L Labs and/or images reviewed: Labs reviewed by me Assessment/Plan Assessment/Plan Acute renal failure Elevated lipase Generalized weakness Diabetes mellitus with hyperglycemia Elevation of uric acid level Hypertension Plan Continuing current management. Appreciate Nephrology input. We will follow up with lab in a.m.. Continuing with sliding scale insulin. Continuing with Norvasc This medical document was created using an electronic medical record system with [employer] direct computerized dictation system. Although this document has been carefully reviewed, there may still be some phonetic and typographical errors. These areas are purely typographical due to imperfections of the software programs, and do not reflect any compromise in the patient's medical care. Plan discussed with: Patient Date of Service: August 21, 2024 Billing Provider: DAVE MOSES MD Common Visit Codes: [id number] INP/OBS CARE(HIGH) DAVE MOSES MD August 21, 2024 13:57
--- NOTE | 2024-08-21 15:16 | DVHINCON2 ---
Date of service: August 21, 2024 Referring Physician Milad Bobby NP History of Present Illness Mr. Gonzalez is a 61-year-old male who presented from a alf facility with altered mental status. He was seen in the emergency department and was unable to participate in the history. All the history was obtained through the chart. His evaluation in the emergency room notable for marked elevation in BUN and creatinine, CT imaging of his abdomen did not reveal any obstructive uropathy. He has been treated with IV fluids. Current consultation requested for ongoing management of acute kidney injury. Past Medical History Dementia Hypertension Reported history of prostate CA Allergies: Coded Allergies: NO KNOWN ALLERGIES (Unverified , 04/01/23) Current Medications Current Medications Medications (Trade) Dose Ordered Sig/Danielle Route PRN Reason Start Time Stop Time Status Last Admin Atorvastatin Calcium (Lipitor) 10 mg HS PO 08/20/24 22:00 08/20/24 22:22 Aspirin 81 mg DAILY PO 08/21/24 10:00 08/21/24 10:07 Levothyroxine Sodium (Synthroid Tablet) 100 mcg QAM@0600 PO 08/21/24 06:00 08/21/24 06:32 Memantine (Namenda Tablet) 5 mg DAILY PO 08/21/24 10:00 08/21/24 10:07 Hydralazine HCl (Apresoline Injection) 10 mg Q6HP PRN IV SBP>150 08/20/24 22:00 08/21/24 11:14 Amlodipine Besylate (Norvasc Tablet) 5 mg DAILY PO 08/21/24 10:00 08/21/24 10:07 Lorazepam (Ativan Inj) 0.5 mg Q8HP PRN IV ANXIETY 08/20/24 22:00 Diagnostic Test (Pha) (Accu-Chek Comfort Curve T) 1 strip IQ4HR 08/21/24 00:00 08/21/24 12:16 Insulin Human Regular (InsuLIN R) IQ4HR SC 08/21/24 00:00 Dextrose 50 ml UD PRN IV Blood Sugar LESS THAN 60 08/20/24 22:00 Sodium Chloride 1,000 ml @ 120 mls/hr Q8H20M IV 08/20/24 22:00 08/20/24 22:22 Acetaminophen/ Hydrocodone Bitart ([place] 5/325MG Tab) 1 tab Q4HP PRN PO MODERATE PAIN (4-6 PAIN SCALE) 08/20/24 22:00 08/20/24 22:22 Ondansetron HCl (Zofran) 4 mg Q4HP PRN IV NAUSEA / VOMITING 08/20/24 22:00 Docusate Sodium (Colace Capsule) 100 mg BIDPRN PRN PO FOR CONSTIPATION 08/20/24 22:00 Acetaminophen (Tylenol Tablet) 650 mg Q6HP PRN PO PAIN SCALE 1-3 OR TEMP>100.4 08/20/24 22:00 Nitroglycerin (Ntrostat Sublingual) 0.4 mg Q5MINP PRN SL FOR CHEST PAIN 08/20/24 22:00 Morphine Sulfate 2 mg Q30M PRN IV FOR CHEST PAIN 08/20/24 22:00 Review of Systems Unable to be obtained due to poor mentation. H&P Exam Vital Signs/I&O Vital Sign Date Time Temp Pulse Resp B/P (MAP) Pulse Ox O2 Delivery O2 Flow Rate FiO2 08/21/24 14:00 84 12 138/72 (94) 98 08/21/24 12:00 98.1 98.1 08/21/24 08:00 Room Air* 0 21 Intake and Output 08/20/24 08/21/24 19:00 07:00 Intake Total 2170 ml Output Total 600 ml Balance 1570 ml Intake IV Total 2170 ml Output Urine Total 500 ml Stool Total 100 ml Physical Exam Gen: [place], cachectic, chronically ill-appearing heent: nc/at, mmm lungs: cta anteriorly cvs: no rub abd: soft, bowel sounds audible ext: no edema skin: no rash neuro: Somnolent Labs/Diagnostic Data Labs/Diagnostic Data Laboratory Tests Test 08/21/24 12:11 08/21/24 08:08 08/21/24 05:15 08/21/24 05:13 Range/Units POC Glucose 122 H 117 H 127 H 70-106 mg/dl White Blood Count 7.4 4.4-10.8 10^3/uL Red Blood Count 3.73 L 4.5-5.90 10^6/uL Hemoglobin 10.9 L 13.5-17.5 g/dL Hematocrit 31.8 L 41.0-53.0 % Mean Corpuscular Volume 85.2 80.0-100.0 fL Mean Corpuscular Hemoglobin 29.4 28.0-32.0 pg Mean Corpuscular Hemoglobin Concent 34.5 32.0-36.0 g/dL Red Cell Distribution Width 14.2 11.8-14.3 % Platelet Count 248 140-450 10^3/uL Mean Platelet Volume 7.9 6.9-10.8 fL Neutrophils (%) (Auto) 62.8 37.0-80.0 % Lymphocytes (%) (Auto) 25.0 10.0-50.0 % Monocytes (%) (Auto) 9.7 0.0-12.0 % Eosinophils (%) (Auto) 1.8 0.0-7.0 % Basophils (%) (Auto) 0.7 0.0-2.0 % Neutrophils # (Auto) 4.6 1.6-8.6 10 ^3/uL Lymphocytes # (Auto) 1.8 0.4-5.4 10 ^3/uL Monocytes # (Auto) 0.7 0-1.3 10 ^3/uL Eosinophils # (Auto) 0.1 0-0.8 10 ^3/uL Basophils # (Auto) 0.1 0-0.2 10 ^3/uL Nucleated Red Blood Cells 0.0 % Sodium Level 142 136-145 mmol/L Potassium Level 4.4 3.5-5.1 mmol/L Chloride Level 106 98-107 mmol/L Carbon Dioxide Level 19 L 20-31 mmol/L Anion Gap 17 H 5-15 Blood Urea Nitrogen 116 #*H 9-23 mg/dL Creatinine 7.31 H 0.700-1.30 mg/dL Glomerular Filtration Rate Calc 8 >90 mL/min BUN/Creatinine Ratio 15.9 10.0-20.0 Serum Glucose 127 H 74-106 mg/dL Calcium Level 9.0 8.7-10.4 mg/dL Total Bilirubin 0.3 0.2-1.0 mg/dL Aspartate Amino Transferase (AST) 20 13-40 U/L Alanine Aminotransferase (ALT) 22 7-40 U/L Alkaline Phosphatase 138 H 46-116 U/L Total Protein 7.3 5.7-8.2 g/dL Albumin 4.6 3.2-4.8 g/dL Thyroid Stimulating Hormone (TSH) 0.04 L 0.55-4.78 uIU/mL Test 08/21/24 00:09 08/20/24 20:19 08/20/24 19:33 08/20/24 19:06 Range/Units POC Glucose 125 H 190 H 70-106 mg/dl Troponin I High Sensitivity 14 15 </=54 ng/L White Blood Count 7.0 4.4-10.8 10^3/uL Red Blood Count 3.69 L 4.5-5.90 10^6/uL Hemoglobin 10.8 L 13.5-17.5 g/dL Hematocrit 31.7 L 41.0-53.0 % Mean Corpuscular Volume 86.1 80.0-100.0 fL Mean Corpuscular Hemoglobin 29.3 28.0-32.0 pg Mean Corpuscular Hemoglobin Concent 34.1 32.0-36.0 g/dL Red Cell Distribution Width 14.6 H 11.8-14.3 % Platelet Count 258 140-450 10^3/uL Mean Platelet Volume 7.9 6.9-10.8 fL Neutrophils (%) (Auto) 76.0 37.0-80.0 % Lymphocytes (%) (Auto) 13.3 10.0-50.0 % Monocytes (%) (Auto) 9.4 0.0-12.0 % Eosinophils (%) (Auto) 0.6 0.0-7.0 % Basophils (%) (Auto) 0.7 0.0-2.0 % Neutrophils # (Auto) 5.3 1.6-8.6 10 ^3/uL Lymphocytes # (Auto) 0.9 0.4-5.4 10 ^3/uL Monocytes # (Auto) 0.7 0-1.3 10 ^3/uL Eosinophils # (Auto) 0 0-0.8 10 ^3/uL Basophils # (Auto) 0 0-0.2 10 ^3/uL Nucleated Red Blood Cells 0.0 % Sodium Level 141 136-145 mmol/L Potassium Level 4.6 3.5-5.1 mmol/L Chloride Level 106 98-107 mmol/L Carbon Dioxide Level 17 L 20-31 mmol/L Anion Gap 18 H 5-15 Blood Urea Nitrogen 127 *H 9-23 mg/dL Creatinine 7.93 H 0.700-1.30 mg/dL Glomerular Filtration Rate Calc 7 >90 mL/min BUN/Creatinine Ratio 16.0 10.0-20.0 Serum Glucose 194 H 74-106 mg/dL Lactic Acid Level 1.6 0.4-2.0 mmol/L Calcium Level 8.1 L 8.7-10.4 mg/dL Magnesium Level 2.0 1.6-2.6 mg/dL Total Bilirubin 0.2 0.2-1.0 mg/dL Aspartate Amino Transferase (AST) 20 13-40 U/L Alanine Aminotransferase (ALT) 25 7-40 U/L Alkaline Phosphatase 140 H 46-116 U/L Total Protein 7.1 5.7-8.2 g/dL Albumin 4.5 3.2-4.8 g/dL Lipase 519 H 12-53 U/L Assessment IMP: 1) Hemodynamically mediated GILBERT/VMN [place] possible prerenal etiology. 2) CKD IIIb ? - sign creatinine unknown to this scientific technical writer 3) toxic metabolic encephalopathy 4) history of hypertension 5) history of prostate cancer REC: - volume expansion - urine studies, serial chemistry panels - avoidance of NSAIDs, intravenous contrast studies, Zachary, ARB. - kidney replacement therapy should patient not demonstrate Improvement in acute kidney injury with conservative means. - we will continue to follow closely with you. Thank you for the consultation. Plan discussed with: Other EVELYN FONSECA MD August 21, 2024 15:16
[2024-08-21 17:50] VITALS: BP 149/77; PULSE 87; RESP 16; TEMP 97.5; O2SAT 98
[2024-08-21] MEDS ORDERED: ATOR40TA52 PO (19:43)
[2024-08-21] MEDS ORDERED: CLOP75TA70 PO (19:43)
[2024-08-21] MEDS ORDERED: METF-372 PO (19:43)
[2024-08-21] MEDS ORDERED: MIDO10TA10 PO (19:43)
[2024-08-21] MEDS ORDERED: QUET50TA27 PO (19:43)
[2024-08-21] MEDS ORDERED: LOS25T PO (19:43)
[2024-08-21 20:00] VITALS: PULSE 88; RESP 17; O2SAT 100
[2024-08-21 21:00] VITALS: BP 127/65; PULSE 89; RESP 17; TEMP 97.4; O2SAT 100
[2024-08-21] MEDS: LORazepam 2MG/ML-1ML VIAL IV PRN (21:26)
[2024-08-21] MEDS: MELATONIN 5 MG TAB ONE (23:56)
[2024-08-21] MEDS: MELATONIN 5 MG TAB PO SCH (23:58)
[2024-08-22] VITALS (8 sets, daily range): BP systolic 160–179; BP diastolic 86–101; PULSE 87–100; RESP 16–20; TEMP 97.4–97.9; O2SAT 97–100
[2024-08-22 07:12] LABS: Potassium 4.9 mmol/L (3.5-5.1); Sodium 144 mmol/L (136-145)
[2024-08-22 07:13] LABS: Anion Gap 14 (5-15); Calcium 8.7 mg/dL (8.7-10.4)
[2024-08-22 07:18] LABS: BUN/Creatinine Ratio 16.2 (10.0-20.0); Glucose 85 mg/dL (74-106)
[2024-08-22 07:20] LABS: Creatine Kinase IFCC 108 U/L (46-171)
[2024-08-22 07:42] LABS: Carbon Dioxide 20 mmol/L (20-31); Chloride 110 mmol/L (98-107); Uric Acid 10.7 mg/dL (3.7-9.2)
[2024-08-22 07:44] LABS: Blood Urea Nitrogen 95 mg/dL (9-23)
--- NOTE | 2024-08-22 13:22 | DVHPN2 ---
Progress Note Date Seen: August 22, 2024 Medical Necessity Reason Pt with a Central, PICC or Fol: No Subjective Patient reports: No new complaints Objective vital signs Vital Sign Date Time Temp Pulse Resp B/P (MAP) Pulse Ox O2 Delivery O2 Flow Rate FiO2 08/22/24 10:00 162/89 08/22/24 08:56 97.9 97 18 100 97.9 08/22/24 08:05 Room Air* 0 21 Total Intake and Output 08/21/24 08/21/24 08/22/24 15:00 23:00 07:00 Intake Total 840 ml 100 ml Balance 840 ml 100 ml medications Current Medications Medications Dose Ordered Sig/Danielle Route Start Time Stop Time Status Last Admin Dose Admin Atorvastatin Calcium 10 mg HS PO 08/20/24 22:00 08/20/24 22:22 10 MG Aspirin 81 mg DAILY PO 08/21/24 10:00 08/21/24 10:07 81 MG Levothyroxine Sodium 100 mcg QAM@0600 PO 08/21/24 06:00 08/22/24 06:15 100 MCG Memantine 5 mg DAILY PO 08/21/24 10:00 08/21/24 10:07 5 MG Hydralazine HCl 10 mg Q6HP PRN IV 08/20/24 22:00 08/21/24 11:14 10 MG Amlodipine Besylate 5 mg DAILY PO 08/21/24 10:00 08/21/24 10:07 5 MG Lorazepam 0.5 mg Q8HP PRN IV 08/20/24 22:00 08/21/24 21:26 0.5 MG Diagnostic Test (Pha) 1 strip IQ4HR 08/21/24 00:00 08/22/24 03:21 1 STRIP Insulin Human Regular IQ4HR SC 08/21/24 00:00 Dextrose 50 ml UD PRN IV 08/20/24 22:00 Sodium Chloride 1,000 ml @ 120 mls/hr Q8H20M IV 08/20/24 22:00 08/21/24 14:40 120 MLS/HR Acetaminophen/ Hydrocodone Bitart 1 tab Q4HP PRN PO 08/20/24 22:00 08/20/24 22:22 1 TAB Ondansetron HCl 4 mg Q4HP PRN IV 08/20/24 22:00 Docusate Sodium 100 mg BIDPRN PRN PO 08/20/24 22:00 Acetaminophen 650 mg Q6HP PRN PO 08/20/24 22:00 Nitroglycerin 0.4 mg Q5MINP PRN SL 08/20/24 22:00 Morphine Sulfate 2 mg Q30M PRN IV 08/20/24 22:00 Melatonin 5 mg HS PO 08/22/24 22:00 08/21/24 23:58 5 MG Examination Gen: NAD Lungs: Bilateral air entry, no rales CVS: RRR, normal S1 and S2 Ext: no edema Neuro: A&O x1 laboratory and microbiology Laboratory Tests 08/22/24 05:13 08/21/24 05:13 Test 08/22/24 05:13 Range/Units Serum Glucose 85 74-106 mg/dL Labs and/or images reviewed: Labs reviewed by me Problem List/Assessment/Plan Problem List/Assessment/Plan IMP: 1) Hemodynamically mediated GILBERT/VMN possible prerenal etiology 2) CKD IIIb ? 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 Denton) LILIA HERRERA August 22, 2024 13:22
--- NOTE | 2024-08-22 13:28 | DVHPN2 ---
Subjective The patient is seen and examined at bedside. No complains today. Reviewed: Care Plan, H&P, Labs, Medications, Previous Orders, Radiology Changes from previous H/P or p: No Changes Eyes: No Pain, No Vision change, No Conjunctivae inflammation, No Eyelid inflammation, No Other, No Redness ENT: No Ear pain, No Ear discharge, No Nose pain, No Nose discharge, No Nose congestion, No Mouth pain, No Mouth swelling, No Throat pain, No Throat swelling, No Other Cardiovascular: No Chest Pain, No Palpitations, No Orthopnea, No Paroxysmal Noc. Dyspnea, No Edema, No Lt Headedness, No Other Respiratory: No Cough, No Dry, No Shortness of breath, No SOB with excertion, No Wheezing, No Hemoptysis, No Pleuritic Pain, No Sputum, No Other Gastrointestinal: No Nausea, No Vomiting, No Abdominal Pain, No Diarrhea, No Constipation, No Melena, No Hematochezia, No Other Genitourinary: No Dysuria, No Frequency, No Incontinence, No Hematuria, No Retention, No Other Musculoskeletal: No other, No neck pain, No shoulder pain, No arm pain, No back pain, No hand pain, No leg pain, No foot pain Skin: No Rash, No Lesions, No Jaundice, No Bruising, No Other Objective Vitals Vital Signs Date Time Temp Pulse Resp B/P (MAP) Pulse Ox O2 Delivery O2 Flow Rate FiO2 08/22/24 10:00 162/89 08/22/24 08:56 97.9 97 18 100 97.9 08/22/24 08:05 Room Air* 0 21 Intake/Output Intake and Output 08/22/24 07:00 Intake Total 940 ml Balance 940 ml Intake Oral 100 ml IV Total 840 ml # Voids 4 General Appearance: Alert, Oriented X3, Cooperative, No acute distress HEENT: Atraumatic, PERRLA, EOMI, Mucous membr. moist/pink Neck: Supple Lungs: Clear to auscultation, Normal air movement Cardiovascular: Regular rate, Normal S1, Normal S2, No murmurs, Gallops, Rubs Abdomen: Normal bowel sounds, Soft Neuro: Cranial nerves 3-12 NL Psych/Mental Status: Mental status NL Medications Current Medications Medications Dose Ordered Sig/Danielle Route Start Time Stop Time Status Last Admin Dose Admin Atorvastatin Calcium 10 mg HS PO 08/20/24 22:00 08/20/24 22:22 10 MG Aspirin 81 mg DAILY PO 08/21/24 10:00 08/21/24 10:07 81 MG Levothyroxine Sodium 100 mcg QAM@0600 PO 08/21/24 06:00 08/22/24 06:15 100 MCG Memantine 5 mg DAILY PO 08/21/24 10:00 08/21/24 10:07 5 MG Hydralazine HCl 10 mg Q6HP PRN IV 08/20/24 22:00 08/21/24 11:14 10 MG Amlodipine Besylate 5 mg DAILY PO 08/21/24 10:00 08/21/24 10:07 5 MG Lorazepam 0.5 mg Q8HP PRN IV 08/20/24 22:00 08/21/24 21:26 0.5 MG Diagnostic Test (Pha) 1 strip IQ4HR 08/21/24 00:00 08/22/24 03:21 1 STRIP Insulin Human Regular IQ4HR SC 08/21/24 00:00 Dextrose 50 ml UD PRN IV 08/20/24 22:00 Sodium Chloride 1,000 ml @ 120 mls/hr Q8H20M IV 08/20/24 22:00 08/21/24 14:40 120 MLS/HR Acetaminophen/ Hydrocodone Bitart 1 tab Q4HP PRN PO 08/20/24 22:00 08/20/24 22:22 1 TAB Ondansetron HCl 4 mg Q4HP PRN IV 08/20/24 22:00 Docusate Sodium 100 mg BIDPRN PRN PO 08/20/24 22:00 Acetaminophen 650 mg Q6HP PRN PO 08/20/24 22:00 Nitroglycerin 0.4 mg Q5MINP PRN SL 08/20/24 22:00 Morphine Sulfate 2 mg Q30M PRN IV 08/20/24 22:00 Melatonin 5 mg HS PO 08/22/24 22:00 08/21/24 23:58 5 MG Laboratory Results Laboratory Tests 08/21/24 05:13 08/22/24 05:13 Chemistry Test 08/22/24 05:13 Calcium Level 8.7 mg/dL (8.7-10.4) Labs and/or images reviewed: Labs reviewed by me Assessment/Plan Assessment/Plan Acute renal failure Elevated lipase Generalized weakness Diabetes mellitus with hyperglycemia Elevation of uric acid level Hypertension Plan Continuing current management. Appreciate Nephrology input. We will follow up with lab in a.m.. Continuing with sliding scale insulin. Continuing with [facility] This medical document was created using an electronic medical record system with [employer] direct computerized dictation system. Although this document has been carefully reviewed, there may still be some phonetic and typographical errors. These areas are purely typographical due to imperfections of the software programs, and do not reflect any compromise in the patient's medical care. Plan discussed with: Patient Date of Service: August 22, 2024 Billing Provider: DAVE MOSES MD Common Visit Codes: [id number] INP/OBS CARE(HIGH) DAVE MOSES MD August 22, 2024 13:28
[2024-08-22] MEDS: hydrALAZINE HCL 25 MG TAB PO PRN (20:41)
[2024-08-23 05:00] VITALS: BP 155/107; PULSE 97; RESP 20; TEMP 97.6; O2SAT 99
[2024-08-23 08:05] VITALS: PULSE 99; RESP 19; O2SAT 99
[2024-08-23 09:00] VITALS: BP 169/98; PULSE 99; RESP 19; TEMP 98.1; O2SAT 99
--- NOTE | 2024-08-23 13:59 | DVHPN2 ---
Subjective The patient is seen and examined at bedside. Complain of abdominal pain. Reviewed: Care Plan, H&P, Labs, Medications, Previous Orders, Radiology Changes from previous H/P or p: No Changes Eyes: No Pain, No Vision change, No Conjunctivae inflammation, No Eyelid inflammation, No Other, No Redness ENT: No Ear pain, No Ear discharge, No Nose pain, No Nose discharge, No Nose congestion, No Mouth pain, No Mouth swelling, No Throat pain, No Throat swelling, No Other Cardiovascular: No Chest Pain, No Palpitations, No Orthopnea, No Paroxysmal Noc. Dyspnea, No Edema, No Lt Headedness, No Other Respiratory: No Cough, No Dry, No Shortness of breath, No SOB with excertion, No Wheezing, No Hemoptysis, No Pleuritic Pain, No Sputum, No Other Gastrointestinal: No Nausea, No Vomiting, No Abdominal Pain, No Diarrhea, No Constipation, No Melena, No Hematochezia, No Other Genitourinary: No Dysuria, No Frequency, No Incontinence, No Hematuria, No Retention, No Other Musculoskeletal: No other, No neck pain, No shoulder pain, No arm pain, No back pain, No hand pain, No leg pain, No foot pain Skin: No Rash, No Lesions, No Jaundice, No Bruising, No Other Objective Vitals Vital Signs Date Time Temp Pulse Resp B/P (MAP) Pulse Ox O2 Delivery O2 Flow Rate FiO2 08/23/24 08:05 99 19 99 Room Air* 0 21 08/23/24 05:00 97.6 155/107 (123) 97.6 Intake/Output Intake and Output 08/23/24 07:00 Intake Total 480 ml Balance 480 ml Intake Oral 480 ml # Voids 10 General Appearance: Alert, Oriented X3, Cooperative, No acute distress HEENT: Atraumatic, PERRLA, EOMI, Mucous membr. moist/pink Neck: Supple Lungs: Clear to auscultation, Normal air movement Cardiovascular: Regular rate, Normal S1, Normal S2, No murmurs, Gallops, Rubs Abdomen: Normal bowel sounds, Soft Neuro: Cranial nerves 3-12 NL Psych/Mental Status: Mental status NL Medications Current Medications Medications Dose Ordered Sig/Danielle Route Start Time Stop Time Status Last Admin Dose Admin Atorvastatin Calcium 10 mg HS PO 08/20/24 22:00 08/22/24 20:41 10 MG Aspirin 81 mg DAILY PO 08/21/24 10:00 08/21/24 10:07 81 MG Levothyroxine Sodium 100 mcg QAM@0600 PO 08/21/24 06:00 08/22/24 06:15 100 MCG Memantine 5 mg DAILY PO 08/21/24 10:00 08/21/24 10:07 5 MG Hydralazine HCl 10 mg Q6HP PRN IV 08/20/24 22:00 08/21/24 11:14 10 MG Amlodipine Besylate 5 mg DAILY PO 08/21/24 10:00 08/21/24 10:07 5 MG Lorazepam 0.5 mg Q8HP PRN IV 08/20/24 22:00 08/23/24 03:30 0.5 MG Diagnostic Test (Pha) 1 strip IQ4HR 08/21/24 00:00 08/22/24 20:00 1 STRIP Insulin Human Regular IQ4HR SC 08/21/24 00:00 Dextrose 50 ml UD PRN IV 08/20/24 22:00 Sodium Chloride 1,000 ml @ 120 mls/hr Q8H20M IV 08/20/24 22:00 08/21/24 14:40 120 MLS/HR Acetaminophen/ Hydrocodone Bitart 1 tab Q4HP PRN PO 08/20/24 22:00 08/20/24 22:22 1 TAB Ondansetron HCl 4 mg Q4HP PRN IV 08/20/24 22:00 Docusate Sodium 100 mg BIDPRN PRN PO 08/20/24 22:00 Acetaminophen 650 mg Q6HP PRN PO 08/20/24 22:00 Nitroglycerin 0.4 mg Q5MINP PRN SL 08/20/24 22:00 Morphine Sulfate 2 mg Q30M PRN IV 08/20/24 22:00 Melatonin 5 mg HS PO 08/22/24 22:00 08/22/24 20:41 5 MG Hydralazine HCl 25 mg Q6HP PRN PO 08/22/24 20:30 08/22/24 20:41 25 MG Laboratory Results Laboratory Tests 08/21/24 05:13 08/22/24 05:13 Labs and/or images reviewed: Labs reviewed by me Assessment/Plan Assessment/Plan Acute renal failure Elevated lipase Generalized weakness Diabetes mellitus with hyperglycemia Elevation of uric acid level Hypertension Plan Continuing current management. Appreciate Nephrology input. We will follow up with lab in a.m.. Continuing with sliding scale insulin. Continuing with [facility] This medical document was created using an electronic medical record system with [employer] direct computerized dictation system. Although this document has been carefully reviewed, there may still be some phonetic and typographical errors. These areas are purely typographical due to imperfections of the software programs, and do not reflect any compromise in the patient's medical care. Plan discussed with: Patient My Orders Orders - DAVE MOSES MD Procedure Category Date Status Time * Wound Consult CONS 08/23/24 Transmitted Date of Service: August 23, 2024 Billing Provider: DAVE MOSES MD Common Visit Codes: [id number] INP/OBS CARE(HIGH) DAVE MOSES MD August 23, 2024 13:59
--- NOTE | 2024-08-23 15:02 | DVHPN2 ---
Progress Note - Dictate Date Seen: August 23, 2024 Medical Necessity Reason Pt with a Central, PICC or Fol: No Subjective Patient's sister at bedside vital signs Vital Sign Date Time Temp Pulse Resp B/P (MAP) Pulse Ox O2 Delivery O2 Flow Rate FiO2 08/23/24 08:05 99 19 99 Room Air* 0 21 08/23/24 05:00 97.6 155/107 (123) 97.6 Total Intake and Output 08/22/24 08/22/24 08/23/24 15:00 23:00 07:00 Intake Total 240 ml 240 ml Balance 240 ml 240 ml medications Current Medications Medications Dose Ordered Sig/Danielle Route Start Time Stop Time Status Last Admin Dose Admin Atorvastatin Calcium 10 mg HS PO 08/20/24 22:00 08/22/24 20:41 10 MG Aspirin 81 mg DAILY PO 08/21/24 10:00 08/21/24 10:07 81 MG Levothyroxine Sodium 100 mcg QAM@0600 PO 08/21/24 06:00 08/22/24 06:15 100 MCG Memantine 5 mg DAILY PO 08/21/24 10:00 08/21/24 10:07 5 MG Hydralazine HCl 10 mg Q6HP PRN IV 08/20/24 22:00 08/21/24 11:14 10 MG Amlodipine Besylate 5 mg DAILY PO 08/21/24 10:00 08/21/24 10:07 5 MG Lorazepam 0.5 mg Q8HP PRN IV 08/20/24 22:00 08/23/24 03:30 0.5 MG Diagnostic Test (Pha) 1 strip IQ4HR 08/21/24 00:00 08/22/24 20:00 1 STRIP Insulin Human Regular IQ4HR SC 08/21/24 00:00 Dextrose 50 ml UD PRN IV 08/20/24 22:00 Sodium Chloride 1,000 ml @ 120 mls/hr Q8H20M IV 08/20/24 22:00 08/21/24 14:40 120 MLS/HR Acetaminophen/ Hydrocodone Bitart 1 tab Q4HP PRN PO 08/20/24 22:00 08/20/24 22:22 1 TAB Ondansetron HCl 4 mg Q4HP PRN IV 08/20/24 22:00 Docusate Sodium 100 mg BIDPRN PRN PO 08/20/24 22:00 Acetaminophen 650 mg Q6HP PRN PO 08/20/24 22:00 Nitroglycerin 0.4 mg Q5MINP PRN SL 08/20/24 22:00 Morphine Sulfate 2 mg Q30M PRN IV 08/20/24 22:00 Melatonin 5 mg HS PO 08/22/24 22:00 08/22/24 20:41 5 MG Hydralazine HCl 25 mg Q6HP PRN PO 08/22/24 20:30 08/22/24 20:41 25 MG objective Gen: nad, cachectic heent: nc/at, mmm lungs: cta anteriorly cvs: no rub abd: soft, bowel sounds audible ext: no edema skin: no rash laboratory and microbiology Laboratory Tests 08/22/24 05:13 08/21/24 05:13 Test 08/22/24 05:13 Range/Units Serum Glucose 85 74-106 mg/dL Assessment/Plan IMP: 1) Hemodynamically mediated GILBERT/VMN Hoka possible prerenal etiology. 2) CKD IIIb ? 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 - we will continue with IV fluids and monitor - discussed plan of care from Nephrology perspective with patient's sister/ power of city attorney at bedside. Dietary Evaluation Review Recommendations by RD: Dietary education by RD Comments: 1) Add renal restriction to 60g CCHO diet if kidney function does not improve 2) Initiate Nepro tid. Encourage optimal PO intake 3) Refer to outpatient RD for weight management. Normal BMI may be unachievable d/t patient's dementia 4) Follow-up with nephrology 5) Continue to monitor I&O, labs, and skin integrity Expected Outcomes/Goals: 1) appetite and labs to improve 2) gradual wt gain 3) f/u in 3-5 days Plan discussed with: Other EVELYN FONSECA MD August 23, 2024 15:02
[2024-08-23 16:54] LABS: Potassium 4.6 mmol/L (3.5-5.1); Sodium 141 mmol/L (136-145)
[2024-08-23 16:55] LABS: Anion Gap 12 (5-15); Carbon Dioxide 21 mmol/L (20-31)
[2024-08-23 16:56] LABS: Calcium 9.5 mg/dL (8.7-10.4)
[2024-08-23 16:57] LABS: Chloride 108 mmol/L (98-107)
[2024-08-23 17:00] VITALS: BP 145/95; PULSE 91; RESP 19; TEMP 98.1; O2SAT 100
[2024-08-23 17:01] LABS: BUN/Creatinine Ratio 17.5 (10.0-20.0)
[2024-08-23 17:15] LABS: Glucose 196 mg/dL (74-106)
[2024-08-23 17:18] LABS: Blood Urea Nitrogen 82 mg/dL (9-23)
[2024-08-23 20:00] VITALS: PULSE 99; RESP 19; O2SAT 99
[2024-08-23 21:00] VITALS: BP 173/85; PULSE 97; RESP 18; TEMP 98.6; O2SAT 98
[2024-08-24 08:00] VITALS: O2SAT 99
--- NOTE | 2024-08-24 12:01 | DVHPN2 ---
Subjective The patient is seen and examined at bedside. No complains today. Refuse all labs draw and medications. at bedside and said she will convince him to have lab drawn and also taking meds. Reviewed: Care Plan, H&P, Labs, Medications, Previous Orders, Radiology Changes from previous H/P or p: No Changes Eyes: No Pain, No Vision change, No Conjunctivae inflammation, No Eyelid inflammation, No Other, No Redness ENT: No Ear pain, No Ear discharge, No Nose pain, No Nose discharge, No Nose congestion, No Mouth pain, No Mouth swelling, No Throat pain, No Throat swelling, No Other Cardiovascular: No Chest Pain, No Palpitations, No Orthopnea, No Paroxysmal Noc. Dyspnea, No Edema, No Lt Headedness, No Other Respiratory: No Cough, No Dry, No Shortness of breath, No SOB with excertion, No Wheezing, No Hemoptysis, No Pleuritic Pain, No Sputum, No Other Gastrointestinal: No Nausea, No Vomiting, No Abdominal Pain, No Diarrhea, No Constipation, No Melena, No Hematochezia, No Other Genitourinary: No Dysuria, No Frequency, No Incontinence, No Hematuria, No Retention, No Other Musculoskeletal: No other, No neck pain, No shoulder pain, No arm pain, No back pain, No hand pain, No leg pain, No foot pain Skin: No Rash, No Lesions, No Jaundice, No Bruising, No Other Objective Vitals Vital Signs Date Time Temp Pulse Resp B/P (MAP) Pulse Ox O2 Delivery O2 Flow Rate FiO2 08/23/24 21:00 98.6 97 18 173/85 (114) 98 98.6 08/23/24 20:00 Room Air* 0 21 Intake/Output Intake and Output 08/24/24 07:00 Intake Total 2380 ml Balance 2380 ml Intake Oral 2380 ml # Voids 9 General Appearance: Alert, Oriented X3, Cooperative, No acute distress HEENT: Atraumatic, PERRLA, EOMI, Mucous membr. moist/pink Neck: Supple Lungs: Clear to auscultation, Normal air movement Cardiovascular: Regular rate, Normal S1, Normal S2, No murmurs, Gallops, Rubs Abdomen: Normal bowel sounds, Soft Neuro: Cranial nerves 3-12 NL Psych/Mental Status: Mental status NL Medications Current Medications Medications Dose Ordered Sig/Danilele Route Start Time Stop Time Status Last Admin Dose Admin Atorvastatin Calcium 10 mg HS PO 08/20/24 22:00 08/22/24 20:41 10 MG Aspirin 81 mg DAILY PO 08/21/24 10:00 08/21/24 10:07 81 MG Levothyroxine Sodium 100 mcg QAM@0600 PO 08/21/24 06:00 08/22/24 06:15 100 MCG Memantine 5 mg DAILY PO 08/21/24 10:00 08/21/24 10:07 5 MG Hydralazine HCl 10 mg Q6HP PRN IV 08/20/24 22:00 08/21/24 11:14 10 MG Amlodipine Besylate 5 mg DAILY PO 08/21/24 10:00 08/21/24 10:07 5 MG Lorazepam 0.5 mg Q8HP PRN IV 08/20/24 22:00 08/24/24 03:42 0.5 MG Diagnostic Test (Pha) 1 strip IQ4HR 08/21/24 00:00 08/24/24 00:00 1 STRIP Insulin Human Regular IQ4HR SC 08/21/24 00:00 Dextrose 50 ml UD PRN IV 08/20/24 22:00 Sodium Chloride 1,000 ml @ 120 mls/hr Q8H20M IV 08/20/24 22:00 08/21/24 14:40 120 MLS/HR Acetaminophen/ Hydrocodone Bitart 1 tab Q4HP PRN PO 08/20/24 22:00 08/20/24 22:22 1 TAB Ondansetron HCl 4 mg Q4HP PRN IV 08/20/24 22:00 Docusate Sodium 100 mg BIDPRN PRN PO 08/20/24 22:00 Acetaminophen 650 mg Q6HP PRN PO 08/20/24 22:00 Melatonin 5 mg HS PO 08/22/24 22:00 08/22/24 20:41 5 MG Hydralazine HCl 25 mg Q6HP PRN PO 08/22/24 20:30 08/22/24 20:41 25 MG Laboratory Results Laboratory Tests 08/21/24 05:13 08/23/24 16:27 Chemistry Test 08/23/24 16:27 Calcium Level 9.5 mg/dL (8.7-10.4) Labs and/or images reviewed: Labs reviewed by me Assessment/Plan Assessment/Plan Acute renal failure Elevated lipase Generalized weakness Diabetes mellitus with hyperglycemia Elevation of uric acid level Hypertension Plan Continuing current management. Appreciate Nephrology input. We will follow up with lab in a.m.. Continuing with sliding scale insulin. Continuing with [facility] This medical document was created using an electronic medical record system with [employer] direct computerized dictation system. Although this document has been carefully reviewed, there may still be some phonetic and typographical errors. These areas are purely typographical due to imperfections of the software programs, and do not reflect any compromise in the patient's medical care. Plan discussed with: Patient My Orders Orders - DAVE MOSES MD Procedure Category Date Status Time Basic Metabolic Panel LAB 08/24/24 Logged 05:00 Basic Metabolic Panel LAB 08/25/24 Verified 05:00 Basic Metabolic Panel LAB 08/26/24 Verified 05:00 Date of Service: August 24, 2024 Billing Provider: DAVE MOSES MD Common Visit Codes: [id number] INP/OBS CARE(HIGH) DAVE MOSES MD August 24, 2024 12:01
[2024-08-24 12:40] VITALS: BP 146/63; PULSE 88; RESP 16; TEMP 98; O2SAT 94
[2024-08-24 13:17] LABS: Potassium 4.4 mmol/L (3.5-5.1); Sodium 140 mmol/L (136-145)
[2024-08-24 13:18] LABS: Anion Gap 11 (5-15); Calcium 9.5 mg/dL (8.7-10.4); Carbon Dioxide 22 mmol/L (20-31)
[2024-08-24 13:19] LABS: Chloride 107 mmol/L (98-107)
[2024-08-24 13:25] LABS: Blood Urea Nitrogen 67 mg/dL (9-23); Glucose 183 mg/dL (74-106)
[2024-08-24 16:54] VITALS: BP 159/93; PULSE 83; RESP 17; TEMP 97.9; O2SAT 97
--- NOTE | 2024-08-24 19:45 | DVHPN2 ---
Progress Note - Dictate Date Seen: August 24, 2024 Medical Necessity Reason Pt with a Central, PICC or Fol: No Subjective Patient seen earlier this morning, he stated he ate his breakfast. vital signs Vital Sign Date Time Temp Pulse Resp B/P (MAP) Pulse Ox O2 Delivery O2 Flow Rate FiO2 08/24/24 18:33 159/93 08/24/24 16:54 97.9 83 17 97 97.9 08/24/24 08:00 Room Air* 0 21 Total Intake and Output 08/23/24 08/23/24 08/24/24 15:00 23:00 07:00 Intake Total 2100 ml 280 ml Balance 2100 ml 280 ml medications Current Medications Medications Dose Ordered Sig/Danielle Route Start Time Stop Time Status Last Admin Dose Admin Atorvastatin Calcium 10 mg HS PO 08/20/24 22:00 08/22/24 20:41 10 MG Aspirin 81 mg DAILY PO 08/21/24 10:00 08/21/24 10:07 81 MG Levothyroxine Sodium 100 mcg QAM@0600 PO 08/21/24 06:00 08/22/24 06:15 100 MCG Memantine 5 mg DAILY PO 08/21/24 10:00 08/21/24 10:07 5 MG Hydralazine HCl 10 mg Q6HP PRN IV 08/20/24 22:00 08/21/24 11:14 10 MG Amlodipine Besylate 5 mg DAILY PO 08/21/24 10:00 08/21/24 10:07 5 MG Lorazepam 0.5 mg Q8HP PRN IV 08/20/24 22:00 08/24/24 03:42 0.5 MG Diagnostic Test (Pha) 1 strip IQ4HR 08/21/24 00:00 08/24/24 17:34 1 STRIP Insulin Human Regular IQ4HR SC 08/21/24 00:00 Dextrose 50 ml UD PRN IV 08/20/24 22:00 Sodium Chloride 1,000 ml @ 120 mls/hr Q8H20M IV 08/20/24 22:00 08/21/24 14:40 120 MLS/HR Acetaminophen/ Hydrocodone Bitart 1 tab Q4HP PRN PO 08/20/24 22:00 08/20/24 22:22 1 TAB Ondansetron HCl 4 mg Q4HP PRN IV 08/20/24 22:00 Docusate Sodium 100 mg BIDPRN PRN PO 08/20/24 22:00 Acetaminophen 650 mg Q6HP PRN PO 08/20/24 22:00 Melatonin 5 mg HS PO 08/22/24 22:00 08/22/24 20:41 5 MG Hydralazine HCl 25 mg Q6HP PRN PO 08/22/24 20:30 08/24/24 18:33 25 MG objective Gen: nad, cachectic heent: nc/at, mmm lungs: cta anteriorly cvs: no rub abd: soft, bowel sounds audible ext: no edema skin: no rash laboratory and microbiology Laboratory Tests 08/24/24 12:50 08/21/24 05:13 Test 08/24/24 12:50 Range/Units Serum Glucose 183 H 74-106 mg/dL Assessment/Plan IMP: 1) Hemodynamically mediated GILBERT/VMN [place] possible prerenal etiology. 2) CKD IIIb ? 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 Dietary Evaluation Review Recommendations by RD: Dietary education by RD Comments: 1) Add renal restriction to 60g CCHO diet if kidney function does not improve 2) Initiate Nepro tid. Encourage optimal PO intake 3) Refer to outpatient RD for weight management. Normal BMI may be unachievable d/t patient's dementia 4) Follow-up with nephrology 5) Continue to monitor I&O, labs, and skin integrity Expected Outcomes/Goals: 1) appetite and labs to improve 2) gradual wt gain 3) f/u in 3-5 days Plan discussed with: Other EVELYN FONSECA MD August 24, 2024 19:45
[2024-08-24 21:00] VITALS: BP 143/68; PULSE 94; RESP 18; TEMP 98.2; O2SAT 99
[2024-08-25 01:00] VITALS: BP 146/65; PULSE 87; RESP 16; TEMP 98; O2SAT 98
[2024-08-25 05:00] VITALS: BP 141/62; PULSE 82; RESP 17; TEMP 97.7; O2SAT 95
[2024-08-25 08:00] VITALS: PULSE 87; RESP 18; O2SAT 99
[2024-08-25 08:40] VITALS: BP 157/89; PULSE 87; RESP 18; TEMP 97.5; O2SAT 92
--- NOTE | 2024-08-25 11:34 | DVHPN2 ---
Subjective The patient is seen and examined at bedside. No complains today. Refuse all labs draw and medications. Reviewed: Care Plan, H&P, Labs, Medications, Previous Orders, Radiology Changes from previous H/P or p: No Changes Eyes: No Pain, No Vision change, No Conjunctivae inflammation, No Eyelid inflammation, No Other, No Redness ENT: No Ear pain, No Ear discharge, No Nose pain, No Nose discharge, No Nose congestion, No Mouth pain, No Mouth swelling, No Throat pain, No Throat swelling, No Other Cardiovascular: No Chest Pain, No Palpitations, No Orthopnea, No Paroxysmal Noc. Dyspnea, No Edema, No Lt Headedness, No Other Respiratory: No Cough, No Dry, No Shortness of breath, No SOB with excertion, No Wheezing, No Hemoptysis, No Pleuritic Pain, No Sputum, No Other Gastrointestinal: No Nausea, No Vomiting, No Abdominal Pain, No Diarrhea, No Constipation, No Melena, No Hematochezia, No Other Genitourinary: No Dysuria, No Frequency, No Incontinence, No Hematuria, No Retention, No Other Musculoskeletal: No other, No neck pain, No shoulder pain, No arm pain, No back pain, No hand pain, No leg pain, No foot pain Skin: No Rash, No Lesions, No Jaundice, No Bruising, No Other Objective Vitals Vital Signs Date Time Temp Pulse Resp B/P (MAP) Pulse Ox O2 Delivery O2 Flow Rate FiO2 08/25/24 09:47 157/89 08/25/24 08:40 97.5 87 18 92 97.5 08/25/24 08:00 Room Air* 0 21 Intake/Output Intake and Output 08/25/24 07:00 Intake Total 460 ml Balance 460 ml Intake Oral 460 ml # Voids 7 General Appearance: Alert, Oriented X3, Cooperative, No acute distress HEENT: Atraumatic, PERRLA, EOMI, Mucous membr. moist/pink Neck: Supple Lungs: Clear to auscultation, Normal air movement Cardiovascular: Regular rate, Normal S1, Normal S2, No murmurs, Gallops, Rubs Abdomen: Normal bowel sounds, Soft Neuro: Cranial nerves 3-12 NL Psych/Mental Status: Mental status NL Medications Current Medications Medications Dose Ordered Sig/Danielle Route Start Time Stop Time Status Last Admin Dose Admin Atorvastatin Calcium 10 mg HS PO 08/20/24 22:00 08/24/24 21:49 10 MG Aspirin 81 mg DAILY PO 08/21/24 10:00 08/25/24 09:47 81 MG Levothyroxine Sodium 100 mcg QAM@0600 PO 08/21/24 06:00 08/25/24 06:00 100 MCG Memantine 5 mg DAILY PO 08/21/24 10:00 08/25/24 09:47 5 MG Hydralazine HCl 10 mg Q6HP PRN IV 08/20/24 22:00 08/21/24 11:14 10 MG Amlodipine Besylate 5 mg DAILY PO 08/21/24 10:00 08/25/24 09:47 5 MG Lorazepam 0.5 mg Q8HP PRN IV 08/20/24 22:00 08/24/24 03:42 0.5 MG Diagnostic Test (Pha) 1 strip IQ4HR 08/21/24 00:00 08/25/24 04:53 1 STRIP Insulin Human Regular IQ4HR SC 08/21/24 00:00 Dextrose 50 ml UD PRN IV 08/20/24 22:00 Sodium Chloride 1,000 ml @ 120 mls/hr Q8H20M IV 08/20/24 22:00 08/21/24 14:40 120 MLS/HR Acetaminophen/ Hydrocodone Bitart 1 tab Q4HP PRN PO 08/20/24 22:00 08/20/24 22:22 1 TAB Ondansetron HCl 4 mg Q4HP PRN IV 08/20/24 22:00 Docusate Sodium 100 mg BIDPRN PRN PO 08/20/24 22:00 Acetaminophen 650 mg Q6HP PRN PO 08/20/24 22:00 Melatonin 5 mg HS PO 08/22/24 22:00 08/24/24 21:49 5 MG Hydralazine HCl 25 mg Q6HP PRN PO 08/22/24 20:30 08/24/24 18:33 25 MG Laboratory Results Laboratory Tests 08/21/24 05:13 08/24/24 12:50 Chemistry Test 08/24/24 12:50 Calcium Level 9.5 mg/dL (8.7-10.4) Labs and/or images reviewed: Labs reviewed by me Assessment/Plan Assessment/Plan Acute renal failure Elevated lipase Generalized weakness Diabetes mellitus with hyperglycemia Elevation of uric acid level Hypertension Plan Continuing current management. Patient has refused all meds and lab Renal funtion improved. 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 Continuing with sliding scale insulin. Continuing with Norvasc This medical document was created using an electronic medical record system with [employer] direct computerized dictation system. Although this document has been carefully reviewed, there may still be some phonetic and typographical errors. These areas are purely typographical due to imperfections of the software programs, and do not reflect any compromise in the patient's medical care. Plan discussed with: Patient, Other (RN) Date of Service: August 25, 2024 Billing Provider: DAVE MOSES MD Common Visit Codes: [id number] INP/OBS CARE(HIGH) DAVE MOSES MD August 25, 2024 11:34
--- NOTE | 2024-08-25 12:10 | DVHPN2 ---
Progress Note Date Seen: August 25, 2024 Medical Necessity Reason Pt with a Central, PICC or Fol: No Subjective Patient reports: Feels better Review of Systems: HEENT:Normal Objective vital signs Vital Sign Date Time Temp Pulse Resp B/P (MAP) Pulse Ox O2 Delivery O2 Flow Rate FiO2 08/25/24 09:47 157/89 08/25/24 08:40 97.5 87 18 92 97.5 08/25/24 08:00 Room Air* 0 21 Total Intake and Output 08/24/24 08/24/24 08/25/24 15:00 23:00 07:00 Intake Total 400 ml 60 ml Balance 400 ml 60 ml medications Current Medications Medications Dose Ordered Sig/Danielle Route Start Time Stop Time Status Last Admin Dose Admin Atorvastatin Calcium 10 mg HS PO 08/20/24 22:00 08/24/24 21:49 10 MG Aspirin 81 mg DAILY PO 08/21/24 10:00 08/25/24 09:47 81 MG Levothyroxine Sodium 100 mcg QAM@0600 PO 08/21/24 06:00 08/25/24 06:00 100 MCG Memantine 5 mg DAILY PO 08/21/24 10:00 08/25/24 09:47 5 MG Hydralazine HCl 10 mg Q6HP PRN IV 08/20/24 22:00 08/21/24 11:14 10 MG Amlodipine Besylate 5 mg DAILY PO 08/21/24 10:00 08/25/24 09:47 5 MG Lorazepam 0.5 mg Q8HP PRN IV 08/20/24 22:00 08/24/24 03:42 0.5 MG Diagnostic Test (Pha) 1 strip IQ4HR 08/21/24 00:00 08/25/24 04:53 1 STRIP Insulin Human Regular IQ4HR SC 08/21/24 00:00 Dextrose 50 ml UD PRN IV 08/20/24 22:00 Sodium Chloride 1,000 ml @ 120 mls/hr Q8H20M IV 08/20/24 22:00 08/21/24 14:40 120 MLS/HR Acetaminophen/ Hydrocodone Bitart 1 tab Q4HP PRN PO 08/20/24 22:00 08/20/24 22:22 1 TAB Ondansetron HCl 4 mg Q4HP PRN IV 08/20/24 22:00 Docusate Sodium 100 mg BIDPRN PRN PO 08/20/24 22:00 Acetaminophen 650 mg Q6HP PRN PO 08/20/24 22:00 Melatonin 5 mg HS PO 08/22/24 22:00 08/24/24 21:49 5 MG Hydralazine HCl 25 mg Q6HP PRN PO 08/22/24 20:30 08/24/24 18:33 25 MG Examination: GENERAL:Normal, CVS:Normal laboratory and microbiology Laboratory Tests 08/24/24 12:50 08/21/24 05:13 Test 08/24/24 12:50 Range/Units Serum Glucose 183 H 74-106 mg/dL Problem List/Assessment/Plan Problem List/Assessment/Plan Acute kidney injury on CKD 3A Hypertension Diabetes Acute kidney injury seems to be volume dependent responded to IV fluids creatinine continues to improve however has not returned to baseline renal function which previously appeared to be approximately 50% function. Obtain new labs today Start lactated Ringer's IV today Monitor response and avoid hypotension Renal dose medications No indication for dialysis at this time Plan discussed with: Patient Dietary Evaluation Review Recommendations by RD: Dietary education by RD Comments: 1) Add renal restriction to 60g CCHO diet if kidney function does not improve 2) Initiate Nepro tid. Encourage optimal PO intake 3) Refer to outpatient RD for weight management. Normal BMI may be unachievable d/t patient's dementia 4) Follow-up with nephrology 5) Continue to monitor I&O, labs, and skin integrity Expected Outcomes/Goals: 1) appetite and labs to improve 2) gradual wt gain 3) f/u in 3-5 days SHARI EDOUARD MD August 25, 2024 12:10
[2024-08-25] MEDS: LACTATED RINGER'S 1,000 ML IV SCH (12:15)
[2024-08-25 12:32] VITALS: BP 154/92; PULSE 79; RESP 18; TEMP 97.5; O2SAT 92
[2024-08-25] MEDS ORDERED: LORazepam 0.5 MG TAB PO PRN (15:45)
[2024-08-25] MEDS ORDERED: GLIP10TA9 PO (17:37)
--- NOTE | 2024-08-25 18:06 | DVHDS2 ---
Discharge Summary Date of Admission August 20, 2024 at 21:49 Date of Discharge: August 25, 2024 Labs/Diagnostic Data: Laboratory Results Test 08/25/24 04:50 08/24/24 12:50 08/22/24 05:13 08/21/24 05:13 POC Glucose 104 mg/dl (70-106) Sodium Level 140 mmol/L (136-145) Potassium Level 4.4 mmol/L (3.5-5.1) Chloride Level 107 mmol/L (98-107) Carbon Dioxide Level 22 mmol/L (20-31) Anion Gap 11 (5-15) Blood Urea Nitrogen 67 mg/dL (9-23) Creatinine 4.20 mg/dL (0.700-1.30) Glomerular Filtration Rate Calc 15 mL/min (>90) BUN/Creatinine Ratio 16.0 (10.0-20.0) Serum Glucose 183 mg/dL (74-106) Calcium Level 9.5 mg/dL (8.7-10.4) Uric Acid 10.7 mg/dL (3.7-9.2) Creatine Kinase 108 U/L (46-171) Vitamin D 25-Hydroxy 20.6 ng/mL (30.0-100) White Blood Count 7.4 10^3/uL (4.4-10.8) Red Blood Count 3.73 10^6/uL (4.5-5.90) Hemoglobin 10.9 g/dL (13.5-17.5) Hematocrit 31.8 % (41.0-53.0) Mean Corpuscular Volume 85.2 fL (80.0-100.0) Mean Corpuscular Hemoglobin 29.4 pg (28.0-32.0) Mean Corpuscular Hemoglobin Concent 34.5 g/dL (32.0-36.0) Red Cell Distribution Width 14.2 % (11.8-14.3) Platelet Count 248 10^3/uL (140-450) Mean Platelet Volume 7.9 fL (6.9-10.8) Neutrophils (%) (Auto) 62.8 % (37.0-80.0) Lymphocytes (%) (Auto) 25.0 % (10.0-50.0) Monocytes (%) (Auto) 9.7 % (0.0-12.0) Eosinophils (%) (Auto) 1.8 % (0.0-7.0) Basophils (%) (Auto) 0.7 % (0.0-2.0) Neutrophils # (Auto) 4.6 10 ^3/uL (1.6-8.6) Lymphocytes # (Auto) 1.8 10 ^3/uL (0.4-5.4) Monocytes # (Auto) 0.7 10 ^3/uL (0-1.3) Eosinophils # (Auto) 0.1 10 ^3/uL (0-0.8) Basophils # (Auto) 0.1 10 ^3/uL (0-0.2) Nucleated Red Blood Cells 0.0 % Total Bilirubin 0.3 mg/dL (0.2-1.0) Aspartate Amino Transferase (AST) 20 U/L (13-40) Alanine Aminotransferase (ALT) 22 U/L (7-40) Alkaline Phosphatase 138 U/L (46-116) Total Protein 7.3 g/dL (5.7-8.2) Albumin 4.6 g/dL (3.2-4.8) Thyroid Stimulating Hormone (TSH) 0.04 uIU/mL (0.55-4.78) Test 08/20/24 20:19 08/20/24 19:06 Troponin I High Sensitivity 14 ng/L (</=54) Lactic Acid Level 1.6 mmol/L (0.4-2.0) Magnesium Level 2.0 mg/dL (1.6-2.6) Lipase 519 U/L (12-53) Other Laboratory Tests 08/24/24 12:50 08/21/24 05:13 Final Diagnosis/Problems List GILBERT Discharge Disposition: Home Discharge Instruct/Medications Diet: Renal Activity: No Restrictions, As Tolerated Follow Up/Referral: pcp 1-2 weeks Medications: Resume home meds DC metformin Start glipirize 10mg bid Discharge Statement: "Patient was advised to return to the ER or call 911 if any headaches, dizziness, shortness of breath, chest pain, abdominal pain, bleeding, fevers, or worsening of medical condition. Patient was counseled about treatment plan, medications, possible side effects, patientverbalized understanding. All questions were answered to the best of my ability. This discharge took greater then 30 minutes in planning, reviewing documentation, counseling the patient, and discussing with other team members." ASSESSMENT ASSESSMENT Assessment GILBERT DAVE MOSES MD August 25, 2024 18:06
[2024-08-25 21:00] VITALS: BP 170/71; PULSE 86; RESP 19; O2SAT 100
[2024-08-26 08:00] VITALS: RESP 18
--- NOTE | 2024-08-26 12:21 | DVHDS2 ---
Discharge Summary Date of Admission August 20, 2024 at 21:49 Date of Discharge: August 25, 2024 Admitting Diagnosis Acute renal failure Elevated lipase Generalized weakness Diabetes mellitus with hyperglycemia Elevation of uric acid level Hypertension Labs/Diagnostic Data: Laboratory Results Test 08/26/24 11:34 08/25/24 20:09 08/22/24 05:13 08/21/24 05:13 POC Glucose 129 mg/dl (70-106) Uric Acid 10.7 mg/dL (3.7-9.2) Creatine Kinase 108 U/L (46-171) Vitamin D 25-Hydroxy 20.6 ng/mL (30.0-100) White Blood Count 7.4 10^3/uL (4.4-10.8) Red Blood Count 3.73 10^6/uL (4.5-5.90) Hemoglobin 10.9 g/dL (13.5-17.5) Hematocrit 31.8 % (41.0-53.0) Mean Corpuscular Volume 85.2 fL (80.0-100.0) Mean Corpuscular Hemoglobin 29.4 pg (28.0-32.0) Mean Corpuscular Hemoglobin Concent 34.5 g/dL (32.0-36.0) Red Cell Distribution Width 14.2 % (11.8-14.3) Platelet Count 248 10^3/uL (140-450) Mean Platelet Volume 7.9 fL (6.9-10.8) Neutrophils (%) (Auto) 62.8 % (37.0-80.0) Lymphocytes (%) (Auto) 25.0 % (10.0-50.0) Monocytes (%) (Auto) 9.7 % (0.0-12.0) Eosinophils (%) (Auto) 1.8 % (0.0-7.0) Basophils (%) (Auto) 0.7 % (0.0-2.0) Neutrophils # (Auto) 4.6 10 ^3/uL (1.6-8.6) Lymphocytes # (Auto) 1.8 10 ^3/uL (0.4-5.4) Monocytes # (Auto) 0.7 10 ^3/uL (0-1.3) Eosinophils # (Auto) 0.1 10 ^3/uL (0-0.8) Basophils # (Auto) 0.1 10 ^3/uL (0-0.2) Nucleated Red Blood Cells 0.0 % Total Bilirubin 0.3 mg/dL (0.2-1.0) Aspartate Amino Transferase (AST) 20 U/L (13-40) Alanine Aminotransferase (ALT) 22 U/L (7-40) Alkaline Phosphatase 138 U/L (46-116) Total Protein 7.3 g/dL (5.7-8.2) Albumin 4.6 g/dL (3.2-4.8) Thyroid Stimulating Hormone (TSH) 0.04 uIU/mL (0.55-4.78) Test 08/20/24 20:19 08/20/24 19:06 Troponin I High Sensitivity 14 ng/L (</=54) Lactic Acid Level 1.6 mmol/L (0.4-2.0) Magnesium Level 2.0 mg/dL (1.6-2.6) Lipase 519 U/L (12-53) Other Laboratory Tests 08/21/24 05:13 Brief Hx & Hospital Course: This is a 69 years old male with multiple past medical history including hypertension, diabetes, CVA with hemiparesis, dementia, psychosis and encephalopathy come to emergency department because abnormal labs. [facility] of abnormal labs. The patient was found to have sodium of 141, potassium 4.6, BUN 127, creatinine of 7.93, glucose 194. The patient's anion gap 18, lipase 519, lactic acid is 1.6. The patient was admitted. The patient was found to have acute kidney injury due to vasomotor secondary to severe dehydration. The patient was rehydrate with IV fluid normal saline. Nephrology was consulted. Recommend rehydrate the patient. No need of hemodialysis. The patient creatinine trending down to today which is 3.35. The patient is very noncompliant and he was refused all the lab tests and medication. The patient refused nutrition support despite severe protein calorie malnutrition. Discuss with Nephrology recommend stable for discharge recommend increase oral intake. I am going to discharge the patient home. Advised the patient to follow up with primary care physician 1-2 weeks. Activity as tolerated. Diet renal diet. Follow up with header set up operator per schedule. Physical exam: HEENT: Normocephalic atraumatic pupils equal react to light and accommodation. Extraocular muscles intact, conjunctiva pink, oropharynx moist, no thrush, no exudate. Lymphatic: No lymphadenopathy Cardiovascular exam: S1, S2 was heard. No murmurs, rubs, gallops Lung: Clear on auscultation bilaterally, no wheeze, rale, rhonchi. GI: Abdominal soft, nondistended, nontenderness, positive bowel sounds. Extremity: No crepitus, cyanosis, edema. Pedal pulses present bilateral. Full range of motion. Skin: Normal turgor, no rash. Psych: Alert, baseline dementia, agitated. Neurology: No focal deficits, cranial nerve II to XII grossly intact. This medical document was created using an electronic medical record system with Managed by Q direct computerized dictation system. Although this document has been carefully reviewed, there may still be some phonetic and typographical errors. These areas are purely typographical due to imperfections of the software programs, and do not reflect any compromise in the patient's medical care. Condition at Discharge: Stable Final Diagnosis/Problems List Acute renal failure probable secondary to VMN Dehydration Elevated lipase Severe protein calorie malnutrition Generalized weakness Diabetes mellitus with hyperglycemia Elevation of uric acid level Hypertension Discharge Disposition: Home Discharge Instruct/Medications Diet: Renal Activity: No Restrictions, As Tolerated Follow Up/Referral: pcp 1-2 weeks Medications: Resume home meds DC metformin Start glipirize 10mg bid Discharge Statement: "Patient was advised to return to the ER or call 911 if any headaches, dizziness, shortness of breath, chest pain, abdominal pain, bleeding, fevers, or worsening of medical condition. Patient was counseled about treatment plan, medications, possible side effects, patientverbalized understanding. All questions were answered to the best of my ability. This discharge took greater then 30 minutes in planning, reviewing documentation, counseling the patient, and discussing with other team members." ASSESSMENT ASSESSMENT Assessment GILBERT Date of Service: August 26, 2024 Billing Provider: DAVE MOSES MD Common Visit Codes: 96367-UZT/OBS DISCH DAY >30min DAVE MOSES MD August 26, 2024 12:21
--- NOTE | 2024-08-26 12:32 | DVHPN2 ---
Progress Note Date Seen: August 26, 2024 Medical Necessity Reason Pt with a Central, PICC or Fol: No Subjective Patient reports: Other (not cooperative with interview, in sitter room. refused labs yesterday and refused IVF) Objective vital signs Vital Sign Date Time Temp Pulse Resp B/P (MAP) Pulse Ox O2 Delivery O2 Flow Rate FiO2 08/26/24 08:00 18 Room Air* 0 21 08/25/24 21:00 86 170/71 (104) 100 08/25/24 12:32 97.5 97.5 Total Intake and Output 08/25/24 08/25/24 08/26/24 15:00 23:00 07:00 Intake Total 520 ml 240 ml Balance 520 ml 240 ml medications Current Medications Medications Dose Ordered Sig/Danielle Route Start Time Stop Time Status Last Admin Dose Admin Atorvastatin Calcium 10 mg HS PO 08/20/24 22:00 08/24/24 21:49 10 MG Aspirin 81 mg DAILY PO 08/21/24 10:00 08/25/24 09:47 81 MG Levothyroxine Sodium 100 mcg QAM@0600 PO 08/21/24 06:00 08/25/24 06:00 100 MCG Memantine 5 mg DAILY PO 08/21/24 10:00 08/25/24 09:47 5 MG Hydralazine HCl 10 mg Q6HP PRN IV 08/20/24 22:00 08/21/24 11:14 10 MG Amlodipine Besylate 5 mg DAILY PO 08/21/24 10:00 08/25/24 09:47 5 MG Diagnostic Test (Pha) 1 strip IQ4HR 08/21/24 00:00 08/25/24 20:21 1 STRIP Insulin Human Regular IQ4HR SC 08/21/24 00:00 Dextrose 50 ml UD PRN IV 08/20/24 22:00 Acetaminophen/ Hydrocodone Bitart 1 tab Q4HP PRN PO 08/20/24 22:00 08/20/24 22:22 1 TAB Ondansetron HCl 4 mg Q4HP PRN IV 08/20/24 22:00 Docusate Sodium 100 mg BIDPRN PRN PO 08/20/24 22:00 Acetaminophen 650 mg Q6HP PRN PO 08/20/24 22:00 Melatonin 5 mg HS PO 08/22/24 22:00 08/24/24 21:49 5 MG Hydralazine HCl 25 mg Q6HP PRN PO 08/22/24 20:30 08/24/24 18:33 25 MG Lactated Ringer's 1,000 ml @ 75 mls/hr [id number] IV 08/25/24 12:15 Lorazepam 2 mg Q6HP PRN PO 08/25/24 15:45 Examination: GENERAL:Abnormal laboratory and microbiology Laboratory Tests 08/21/24 05:13 Test 08/26/24 11:34 Range/Units Serum Glucose Pending Problem List/Assessment/Plan Problem List/Assessment/Plan Acute kidney injury on CKD 3A Hypertension Diabetes malnourished labs today are pending review If remains hospitalized rec improve nutrition and continue IVF Monitor response and avoid hypotension Renal dose medications No indication for dialysis at this time rest of care per primary medical doctor Plan discussed with: Patient Dietary Evaluation Review Recommendations by RD: Dietary education by RD Comments: 1) Add renal restriction to 60g CCHO diet if kidney function does not improve 2) Initiate Nepro tid. Encourage optimal PO intake 3) Refer to outpatient RD for weight management. Normal BMI may be unachievable d/t patient's dementia 4) Follow-up with nephrology 5) Continue to monitor I&O, labs, and skin integrity Expected Outcomes/Goals: 1) appetite and labs to improve 2) gradual wt gain 3) f/u in 3-5 days SHARI EDOUARD MD August 26, 2024 12:32
[2024-08-26 13:14] LABS: Potassium 4.6 mmol/L (3.5-5.1); Sodium 144 mmol/L (136-145)
[2024-08-26 13:15] LABS: Anion Gap 12 (5-15); Calcium 9.8 mg/dL (8.7-10.4); Carbon Dioxide 20 mmol/L (20-31)
[2024-08-26 13:20] LABS: BUN/Creatinine Ratio 19.4 (10.0-20.0)
[2024-08-26 13:21] LABS: Blood Urea Nitrogen 65 mg/dL (9-23); Chloride 112 mmol/L (98-107); Glucose 162 mg/dL (74-106)
== END 2024-08-26 14:00 | disposition home or self-care (01) | DRG 682 ==
LOC: ER 18:56 → EDBD 18:56 → OVERFLOW 21:49 → TELE-WESTW 08-21 17:30 → WEST WING 08-24 04:54
PROVIDERS: ADMIT Internal Medicine; ATTEND Internal Medicine
DX: N17.0 Acute kidney failure with tubular necrosis (principal); E43 Unspecified severe protein-calorie malnutrition; G92.8 Other toxic encephalopathy; I69.359 Hemiplegia and hemiparesis following cerebral infarction affecting unspecified side; Z68.1 Body mass index [BMI] 19.9 or less, adult; Z66 Do not resuscitate; E86.0 Dehydration; E11.65 Type 2 diabetes mellitus with hyperglycemia; N18.31 Chronic kidney disease, stage 3a; F03.90 Unspecified dementia, unspecified severity, without behavioral disturbance, psychotic disturbance, mood disturbance, and anxiety; B02.9 Zoster without complications; I12.9 Hypertensive chronic kidney disease with stage 1 through stage 4 chronic kidney disease, or unspecified chronic kidney disease; E11.22 Type 2 diabetes mellitus with diabetic chronic kidney disease; Z85.46 Personal history of malignant neoplasm of prostate; Z79.899 Other long term (current) drug therapy
CPT/HCPCS: 36415; 71045; 74176; 80048; 80053; 82306; 82550; 82962; 83605; 83690; 83735; 84443; 84484; 84550; 85025; 96360; 96361; 99291; G0378

== ENCOUNTER 2024-08-31 08:17 | Inpatient (IN) | payer MEDICARE, MEDICAID ==
[~2024-08-31] VITALS: Ht 170.2 cm; Wt 59.0 kg
[2024-08-31] VITALS (17 sets, daily range): BP systolic 101–205; BP diastolic 44–113; PULSE 52–128; RESP 16–31; TEMP 96.7–100.2; O2SAT 95–100
[~2024-08-31 08:17] MED LIST: ATOR40TA52 PO; CLOP75TA70 PO; GLIP10TA9 PO; LOS25T PO; MIDO10TA10 PO; QUET50TA27 PO
--- NOTE | 2024-08-31 08:49 | ED.PDOC ---
Altered Mental Status HPI Comments 69 year old male presents to the ED via EMS with a chief complaint of ALOC onset today (08/31/24). Per EMS, patient is from [facility], patient was altered this morning, last seen well was last night. Upon EMS arrival, patient was altered, tachycardiac, warm to touch, BGL was 61. Patient was discharged 2 days ago with a diagnosis of of Acute Kidney Injury. Patient is poor historian. Chief Complaint: ALOC Time Seen by MD: 08:20 Reviewed Notes: Medications, Allergies Allergies: Coded Allergies: NO KNOWN ALLERGIES (Unverified , 08/31/24) Information Source: Emergency Med Personnel Mode of Arrival: EMS Severity: Moderate Timing: Hours Duration: Since onset Prehospital treatment: Treatment Quality: Decreased Alertness, Change in Behavior, Confusion History of: None Past Medical History PAST MEDICAL HISTORY: Unknown Surgical History: Unknown Family History Family History: Unknown Social History Smoker: Unknown Alcohol: Unknown Drugs: Unknown Lives In: Assisted Care Unable to Obtain due to: Altered Mental Status Physical Exam General Appearance: Severe Distress, Thin HEENT: Normal ENT Inspection, Pharynx Normal, TMs Normal Neck: Full Range of Motion, Non-Tender, Normal, Normal Inspection Respiratory: Accessory Muscle Use, Chest Non-Tender, Respiratory Distress, Other (Coarse breath sounds) Cardiovascular: No Edema, No JVD, No Murmur, No Gallop, Normal Peripheral Pulses, Tachycardia Breast Exam: Deferred Gastrointestinal: No Organomegaly, Non Tender, No Pulsatile Mass, Normal Bowel Sounds, Soft Genitalia: Deferred Pelvic: Deferred Rectal: Deferred Extremities: No calf tenderness, No pedal edema Musculoskeletal : Apperance: Normal Neurologic: Disoriented, Motor Weakness Cerebellar Function: NOT DONE Reflexes: NOT DONE Skin: Dry, Normal Color, Warm Peripheral Pulses: 3+ Radial (R), 3+ Radial (L) Lymphatic: No Adenopathy EKG EKG : Pulse Rate (adult): 130 Cardiac Rhythm: ST Was a procedure done? Was a procedure done?: Yes Sedation Sedation?: No Central Line Recorder of insertion practice: Armed Security Guard Occupation of medical liaison: Attending Physician Indication: Hypotension, CVP monitoring Room prepared for procedure: Yes Armed Security Guard performed hand hygien: Yes Maximal sterile barrier precau: Mask/Eye shield, Sterile gown Skin Preparation: Chlorhexidine gluconate, Providine iodine Skin preparation completely dr: Yes Insertion site: Right, Internal jugular Central line catheter type: Qst-vyepsqxs-fbr dialysis Number of lumens: 3 Antiseptic ointment applied to: Yes Post Assessment: Chest X-Ray Intubation Indication: Respiratory Insufficiency Prep: Preoxygenation Pretreated with: Analgesia Medicated with: Vecuronium Intubation Approach: Orotracheal Intubation size: cm (8) Differential Diagnosis (ALOC) Differential Diagnosis: Encephalopathy X-Ray, Labs, Meds, VS Vital Signs Date Time Temp Pulse Resp B/P (MAP) Pulse Ox O2 Delivery O2 Flow Rate FiO2 08/31/24 12:00 113 08/31/24 11:27 96.7 128 16 205/113 100 30 96.7 08/31/24 09:47 130 08/31/24 09:45 136 16 205/113 (143) 100 08/31/24 09:30 134 16 185/106 (132) 100 08/31/24 09:05 127 16 127/86 (100) 100 08/31/24 09:05 127 Room Air* 0 21 08/31/24 09:05 128 16 147/89 (108) 100 100 08/31/24 09:00 127/86 08/31/24 09:00 80/49 08/31/24 09:00 96/48 08/31/24 08:31 136 08/31/24 08:20 96.7 136 14 121/89 (100) 94 96.7 Lab Test 08/31/24 11:53 08/31/24 10:52 08/31/24 10:43 08/31/24 09:52 Range/Units Lactic Acid Level Pending 2.9 *H 0.4-2.0 mmol/L Troponin I High Sensitivity 36 </=54 ng/L Free Prostate Specific Antigen Pending Percent Free Prostate Specific Ag Pending Prostate Specific Antigen Total Pending Blood Gas Specimen Type Arterial Blood Gas Sample Site Right brachial Blood Gas Patient Temperature 37.0 Arterial Blood Date Drawn [id number] Arterial Blood pH 7.324 L 7.350-7.450 Arterial Blood Partial Pressure CO2 36.9 35.0-48.0 mmHg Arterial Blood Partial Pressure O2 410.2 *H 83.0-108.0 mmHg Arterial Blood HCO3 18.8 L 21.0-28.0 mmol/L Arterial Blood Oxygen Saturation 99.7 H 94.0-98.0 % Arterial Blood Base Excess -6.6 L -2.0-3.0 mmol/L Arterial Blood Oxyhemoglobin 98.7 H 94.0-98.0 % Arterial Blood Carboxyhemoglobin 0.4 L 0.5-1.5 % Arterial Blood Methemoglobin 0.6 0.0-1.5 % Yazan Test N/a Blood Gas Total Hemoglobin 12.60 L 13.5-17.5 g/dL Blood Gas Set Respiration Rate 16.0 Blood Gas Modality Vent - ac FiO2 % 100.0 Blood Gas Tidal Volume 500.0 Blood Gas PEEP or CPAP 5.0 Blood Gas Critical Value Read Back Yes Blood Gas Notified Whom Roland puentes Blood Gas Notified Time [id number] Blood Gas Notified By Adrian machine deicer element winder Test 08/31/24 09:42 Range/Units White Blood Count 5.5 4.4-10.8 10^3/uL Red Blood Count 4.17 L 4.5-5.90 10^6/uL Hemoglobin 12.3 L 13.5-17.5 g/dL Hematocrit 35.3 L 41.0-53.0 % Mean Corpuscular Volume 84.7 80.0-100.0 fL Mean Corpuscular Hemoglobin 29.6 28.0-32.0 pg Mean Corpuscular Hemoglobin Concent 34.9 32.0-36.0 g/dL Red Cell Distribution Width 14.9 H 11.8-14.3 % Platelet Count 338 140-450 10^3/uL Mean Platelet Volume 7.8 6.9-10.8 fL Neutrophils (%) (Auto) 37.0-80.0 % Lymphocytes (%) (Auto) 10.0-50.0 % Monocytes (%) (Auto) 0.0-12.0 % Basophils (%) (Auto) 0.0-2.0 % Neutrophils # (Auto) 1.6-8.6 10 ^3/uL Lymphocytes # (Auto) 0.4-5.4 10 ^3/uL Monocytes # (Auto) 0-1.3 10 ^3/uL Differential Total Cells Counted 100.0 100 Neutrophils % (Manual) 71 37.0-80.0 Band Neutrophils % (Manual) 22 Lymphocytes % (Manual) 6 L 10.0-50.0 Monocytes % (Manual) 1 0-12 Eosinophils % (Manual) 0 0-7 Basophils % (Manual) 0 0.0-2.0 Metamyelocytes % (manual) 0 Myelocytes % (Manual) 0 Promyelocytes % (Manual) 0 Blast Cells % (Manual) 0 Reactive Lymphocytes 0 Platelet Estimate Adequate Sodium Level 143 136-145 mmol/L Potassium Level 4.5 3.5-5.1 mmol/L Chloride Level 110 H 98-107 mmol/L Carbon Dioxide Level 19 L 20-31 mmol/L Anion Gap 14 5-15 Blood Urea Nitrogen 61 H 9-23 mg/dL Creatinine 4.08 H 0.700-1.30 mg/dL Glomerular Filtration Rate Calc 15 >90 mL/min BUN/Creatinine Ratio 15.0 10.0-20.0 Serum Glucose 145 H 74-106 mg/dL Calcium Level 9.9 8.7-10.4 mg/dL Troponin I High Sensitivity 27 </=54 ng/L Current Medications Medications (Trade) Dose Ordered Sig/Danielle Route Start Time Stop Time Status Last Admin Ceftriaxone Sodium 50 ml @ 100 mls/hr ONCE ONCE IV 08/31/24 09:00 08/31/24 09:29 DC 08/31/24 11:29 Azithromycin 250 ml @ 125 mls/hr ONCE ONCE IV 08/31/24 09:00 08/31/24 10:59 DC 08/31/24 11:29 Sodium Chloride 1,000 ml @ 1,000 mls/hr Q1H ONCE IV 08/31/24 09:00 08/31/24 09:59 DC 08/31/24 11:29 Sodium Chloride 1,000 ml @ 150 mls/hr Q6H40M ONCE IV 08/31/24 09:00 08/31/24 15:39 08/31/24 11:29 Rocuronium [place] 100 mg ONCE ONCE IV 08/31/24 09:00 08/31/24 09:01 DC 08/31/24 09:00 Etomidate 20 mg ONCE ONCE IV 08/31/24 09:00 08/31/24 09:01 DC 08/31/24 09:00 Norepinephrine Bitartrate 250 ml @ 3.75 mls/hr Q24H IV 08/31/24 09:00 08/31/24 09:00 Midazolam HCl 50 ml @ 1 mls/hr Q24H IV 08/31/24 09:00 08/31/24 09:00 Patient altered. Tachycardia. Unable to get any history from the patient. Using accessory muscles. Had to intubate the patient. Placed a line. Possible sepsis. Was given Rocephin. Was given azithromycin. Started fluids. Sepsis protocol. Possibly will need to stop the fluids because of CHF. EKG reviewed does show tachycardia. Continue monitoring. [place] [address] Ph: [phone] DIAGNOSTIC IMAGING Diagnostic Imaging Report : [id number] Signed PATIENT: SURESH MEYERS ACCT: [id number] UNIT: [id number] : 1955 LOC: ER ROOM / BED: / AGE / SEX: 69 / M ADM STATUS: REG ER SERVICE 3 ORDERING PHYSICIAN: HEIDE AGUDELO MD PROCEDURE(s): HWOCT - HEAD WITHOUT CONTRAST REASON: altered ORDER NUMBER(s): [id number], ACCESSION NUMBER(s): [id number] EXAM: CT HEAD WITHOUT CONTRAST HISTORY: altered COMPARISON: None TECHNIQUE: Axial images of the head were obtained and reformatted in coronal and sagittal planes. All CT scans at this medical facility are performed using dose modulation techniques as appropriate to a performed exam including the following: Automated exposure control was utilized; adjustment of the MA and/or KV according to patient size; and use of iterative reconstruction technique. CT Dose: CTDI volume is 65.09 mGy. Dose-length product is 1282.56 mGy*cm FINDINGS: There is no evidence of acute intracranial hemorrhage, mass, mass effect midline shift. There is no hydrocephalus or extra-axial fluid collection. There is moderate generalized parenchymal volume loss. There are moderate chronic microvascular ischemic changes in the supratentorial white matter. Hui-white matter differentiation appears maintained. There is complete opacification of the right maxillary sinus with likely inspissated secretions the mastoid air cells are clear. The calvarium is intact. IMPRESSION: 1. No acute intracranial process. HS:Y ATED BY: LÓPEZ BHANDARI MD DICTATED DATE/TIME: 08/31/24 1030 SIGNED BY: LÓPEZ BHANDARI MD SIGNED DATE/TIME: 08/31/24 1030 CC: [facility] [id number] [place] [id number] Ph: [phone] DIAGNOSTIC IMAGING Diagnostic Imaging Report : [id number] Signed PATIENT: SURESH MEYERS ACCT: [id number] UNIT: [id number] : 1955 LOC: ER ROOM / BED: / AGE / SEX: 69 / M ADM STATUS: REG ER SERVICE 0854 ORDERING PHYSICIAN: HEIDE AGUDELO MD PROCEDURE(s): CXRP - CHEST PORTABLE REASON: sob ORDER NUMBER(s): [id number], ACCESSION NUMBER(s): [id number] INDICATION: sob TECHNIQUE: Frontal view of the chest. COMPARISON: None FINDINGS: Endotracheal tube 6 cm from the oneal. Nasogastric tube tip in the stomach.. Cardiomegaly. The bony structures of the chest are intact without fracture. IMPRESSION: 1. Cardiomegaly with CHF. Lines and tubes as above. ATED BY: JUDITH TENORIO MD DICTATED DATE/TIME: 08/31/24 1013 SIGNED BY: JUDITH TENORIO MD SIGNED DATE/TIME: 08/31/24 1013 CC: Patient altered. Unable to get a history from the patient. Using accessory muscles. Had to be intubated. Chest x-ray does show CHF. Was given Lasix. Placed a central line. Possible sepsis. Was given Rocephin. Was given azithromycin. No family at bedside. No DNR. Continue to monitor. CT of the head reviewed does not show any acute changes. Time of 1ST Reevaluation: 08:50 Reevaluation 1ST: Unchanged Patient Education/Counseling: Diagnosis, Treatment, Prognosis Family Education/Counseling: No Family Present Sepsis Sepsis Reasesment Focused Exam Orders: Laboratory Tests 08/31/24 09:52: Lactic Acid Level 2.9 08/31/24 11:53: Departure 1 Departure Time of Disposition: 09:46 Impression: Primary Impression: Acute respiratory failure Qualified Codes: J96.01 - Acute respiratory failure with hypoxia Additional Impressions: Metabolic encephalopathy Sepsis Qualified Codes: A41.9 - Sepsis, unspecified organism Pneumonia Qualified Codes: J18.9 - Pneumonia, unspecified organism CHF (congestive heart failure) Qualified Codes: I50.43 - Acute on chronic combined systolic (congestive) and diastolic (congestive) heart failure Disposition: ADMITTED INPATIENT Admit to: Med Surg Condition: Guarded Critical Care Note Critical Care Time?: Yes (90 min-critical care time only) Critical care comment: Respiratory failure continue monitoring Stability Stability form required: No Heart Score Heart Score: Heart Score Response (Comments) Value History Slightly Suspicious 0 EKG Normal 0 Age >65 2 Risk Factors >3 or Hx ASHD 2 Troponin Normal limit 0 Total 4 I personally scribed for HEIDE AGUDELO MD ([email or web address]) on 08/31/24 at 08:49. Electronically submitted by Opal Bradshaw ([email or web address]). I personally scribed for HEIDE AGUDELO MD ([email or web address]) on 08/31/24 at 11:08. Electronically submitted by Opal Bradshaw ([email or web address]). HEIDE AGUDELO MD Aug 31, 2024 08:49
[2024-08-31] MEDS: ETOMIDATE (2MG/ML) 20ML VIAL IV ONE ×2 (09:00→09:01)
[2024-08-31] MEDS: NOREPINEPHRINE 8 MG/250ML KIT 250 ML IV SCH (09:00)
[2024-08-31] MEDS: MIDAZOLAM DRIP 50 mg/50mL 50 ML IV SCH (09:00)
[2024-08-31] MEDS: ROCURONIUM 10MG/ML 10ML VIAL IV ONE ×2 (09:00→09:01)
[2024-08-31] MEDS: MIDAZOLAM DRIP 50 mg/50mL 50 ML IV ONE (09:01)
[2024-08-31] MEDS: NOREPINEPHRINE 8 MG/250ML KIT 250 ML IV ONE (09:01)
--- NOTE | 2024-08-31 10:15 | DVH ---
INDICATION: sob TECHNIQUE: Frontal view of the chest. COMPARISON: None FINDINGS: Endotracheal tube 6 cm from the oneal. Nasogastric tube tip in the stomach.. Cardiomegaly. The bony structures of the chest are intact without fracture. IMPRESSION: 1. Cardiomegaly with CHF. Lines and tubes as above.
[2024-08-31 10:20] LABS: Hematocrit 35.3 % (41.0-53.0); Hemoglobin 12.3 g/dL (13.5-17.5); Mean Corpuscular Hemoglobin 29.6 pg (28.0-32.0); Mean Corpuscular Hgb Conc. 34.9 g/dL (32.0-36.0); Mean Corpuscular Volume 84.7 fL (80.0-100.0); Platelet Count (auto) 338 10^3/uL (140-450); Red Blood Cells 4.17 10^6/uL (4.5-5.90); Red Cell Distribution Width 14.9 % (11.8-14.3); White Blood Cell 5.5 10^3/uL (4.4-10.8)
[2024-08-31 10:23] LABS: Basophils % (manual) 0 (0.0-2.0); Blast Cells 0; Eosinophils % (manual) 0 (0-7); Metamyelocytes % 0; Myelocytes % 0; Promyelocytes % 0; Reactive Lymphocytes 0
[2024-08-31 10:27] LABS: Potassium 4.5 mmol/L (3.5-5.1); Sodium 143 mmol/L (136-145)
[2024-08-31 10:28] LABS: Anion Gap 14 (5-15)
[2024-08-31 10:29] LABS: Calcium 9.9 mg/dL (8.7-10.4)
--- NOTE | 2024-08-31 10:32 | DVH ---
EXAM: CT HEAD WITHOUT CONTRAST HISTORY: altered COMPARISON: None TECHNIQUE: Axial images of the head were obtained and reformatted in coronal and sagittal planes. All CT scans at this medical facility are performed using dose modulation techniques as appropriate t o a performed exam including the following: Automated exposure control was utilized; adjustment of th e MA and/or KV according to patient size; and use of iterative reconstruction technique. CT Dose: CTDI volume is 65.09 mGy. Dose-length product is 1282.56 mGy*cm FINDINGS: There is no evidence of acute intracranial hemorrhage, mass, mass effect midline shift. There is no h ydrocephalus or extra-axial fluid collection. There is moderate generalized parenchymal volume loss. There are moderate chronic microvascular ischemic changes in the supratentorial white matter. Hui-wh ite matter differentiation appears maintained. There is complete opacification of the right maxillary sinus with likely inspissated secretions the m astoid air cells are clear. The calvarium is intact. IMPRESSION: 1. No acute intracranial process. HS:Y
[2024-08-31 10:34] LABS: Carbon Dioxide 19 mmol/L (20-31); Chloride 110 mmol/L (98-107); Glucose 145 mg/dL (74-106)
[2024-08-31 10:35] LABS: Blood Urea Nitrogen 61 mg/dL (9-23)
--- NOTE | 2024-08-31 10:37 | DVHINCON2 ---
Date of service: Aug 31, 2024 Referring Physician ER MD Reason for Consultation franklin catheter placement History of Present Illness History Source: Family, RN Notes, MD Notes, Old Records Exam Limitations: Clinical condition HPI 69 yo male resident of [facility] with hx of prostate cancer was brought to this ER via EMS for ALOC. Per sister Sofia he was scheduled to start EBRT therapy with Dr. Mendez last August but due to severe constipation they could not proceed. They attempted three times to start EBRT however pts dementia worsened and further efforts were abandoned. He is a patient of Dr Curran at [facility]. Urology was consulted after staff was unable to place a franklin catheter. Pt is intubated and is seen in ER bed 12. No labs are yet available. 18F coude placed with moderate difficulty Past Medical History Hemotology/Oncology: Cancer Review of Systems Comments unable to obtain H&P Exam Vital Signs Vital Signs Date Time Temp Pulse Resp B/P (MAP) Pulse Ox O2 Delivery O2 Flow Rate FiO2 08/31/24 09:47 130 08/31/24 09:05 16 147/89 (108) 100 100 08/31/24 08:20 96.7 96.7 General Appeara: Well developed, Thin Pulmonary/Respiratory: Other (intubated) Abdominal Exam: Soft, Other (radiation tattoo) Rectal Exam: Deferred Male Genital Exam: Normal genitalia Skin Exam: Normal color, Warm/dry, Other (left sided rash with scabbing) Labs/Xrays Labs Test 08/31/24 09:52 08/31/24 09:42 Range/Units Assessment/Plan Problem List: (1) Prostate cancer (2) Respiratory failure Plan franklin to gravity while needed, assess daily for ongoing need once medically stabilized. PSA Bone scan CT A/P NC Plan discussed with: Other (Sister Sofia) SADIQ GARCÍA NP Aug 31, 2024 10:37
[2024-08-31 10:40] LABS: Lactic Acid w/Reflex 2.9 mmol/L (0.4-2.0)
[2024-08-31 10:53] LABS: Band Neutrophils % (manual) 22; Lymphocytes % (manual) 6 (10.0-50.0); Monocytes % (manual) 1 (0-12); Platelet Estimate Adequate
[2024-08-31] MEDS: AZITHROMYCIN 500MG/ 250ML 250 ML IV ONE (11:29)
[2024-08-31] MEDS: SODIUM CHLORIDE 0.9% 1,000 ML IV ONE ×2 (11:29)
[2024-08-31] MEDS: cefTRIAXone 1GM/50ML D5W 50 ML IV ONE (11:29)
[2024-08-31 11:32] LABS: Base Excess -6.6 mmol/L (-2.0-3.0)
--- NOTE | 2024-08-31 12:35 | ECG ---
[facility] Test Date: 2024-08-31 Test Time: 08:31:53 Pat Name: SURESH JOHNSTON Department: ED Room: 0265 Gender: M Transformer Molder: JIMBO : 1955 Requested By: HEIDE AGUDELO Order Number: [id number] Reading MD: Ilan Morales Measurements Intervals [place] Rate: 136 P: 70 WI: 119 QRS: 76 QRSD: 130 T: 43 QT: 290 QTc: 437 Interpretive Statements Sinus tachycardia Paired ventricular premature complexes Right bundle branch block Borderline ST elevation, lateral leads Artifact in lead(s) II,aVR,aVF,V1,V2,V3,V4,V5,V6 Electronically Signed On 09-01-2024 14:58:24 PDT by Ilan Morales Please click the below link to view image of tracing.
[2024-08-31 13:24] LABS: Urine Bacteria FEW /hpf (None Seen); Urine Blood TRACE /uL (Negative); Urine Clarity Turbid (Clear); Urine Color Light-Yellow (Yellow); Urine Hyaline Cast FEW /lpf (0 - 2); Urine Protein, UAD 1+ (Negative); Urine Specific Gravity 1.016 (1.001-1.035); Urine Squamous Epithelial Cell None Seen /hpf (<5); Urine Urobilinogen Normal (Negative); Urine WBC 3 /HPF (0-3)
[2024-08-31] MEDS ORDERED: NITROGLYCERIN 0.4 MG SL TAB SL PRN (15:00)
[2024-08-31] MEDS ORDERED: DOCUSATE SOD 100 MG CAP PO PRN (15:00)
[2024-08-31] MEDS ORDERED: ACETAMINOPHEN 325 MG TAB PO PRN (15:00)
[2024-08-31] MEDS ORDERED: MORPHINE SULFATE INJ 2 MG/ml SYRG IV PRN (15:00)
--- NOTE | 2024-08-31 15:11 | DVHHP2 ---
History of Present Illness Reason for Visit: ALOC History of Present Illness Yfn Baires is a 69-year-old male with past medial history of dementia, hyperlipidemia, hypothyroidism, anxiety, hypotension, and prostate cancer who is a resident of [facility] assisted living. Per EMS they were called by the facility due to the patient being altered this morning. Patient was intubated shortly after arrival to ER due to the patient being altered. Cardiovascular: HTN, hyperipidemia AIRDOX FITTER: Other (CVA, dementia) Endocrine: Diabetes, Hypothyroidism Smoke: No ALCOHOL: none Drugs: None Lives: Senior Care Domestic Violence: Neg Review of Systems Constitutional: No: Fever, Chills, Sweats, Weakness, Malaise, Other Eyes: No: Pain, Vision change, Conjunctivae inflammation, Eyelid inflammation, Other, Redness ENT: No: Ear pain, Ear discharge, Nose pain, Nose discharge, Nose congestion, Mouth pain, Mouth swelling, Throat pain, Throat swelling, Other Respiratory: No: Cough, Dry, Shortness of breath, SOB with excertion, Wheezing, Hemoptysis, Pleuritic Pain, Sputum, Wheezing, Other Cardiovascular: No: Chest Pain, Palpitations, Orthopnea, Paroxysmal Noc. Dyspnea, Edema, Lt Headedness, Other Gastrointestinal: No: Nausea, Vomiting, Abdominal Pain, Diarrhea, Constipation, Melena, Hematochezia, Other Genitourinary: No Dysuria, No Frequency, No Incontinence, No Hematuria, No Retention, No Other Musculoskeletal: No: other, neck pain, shoulder pain, arm pain, back pain, hand pain, leg pain, foot pain Skin: No: Rash, Lesions, Jaundice, Bruising, Other Neurological: Change in speech, Confusion; No: Weakness, Numbness, Incoordination, Seizures, Other Allergies: Coded Allergies: NO KNOWN ALLERGIES (Unverified , 08/31/24) Medications Current Medications Medications Dose Ordered Sig/Danielle Route Start Time Stop Time Status Last Admin Dose Admin Norepinephrine Bitartrate 250 ml @ 3.75 mls/hr Q24H IV 08/31/24 09:00 08/31/24 09:00 3.75 MLS/HR Midazolam HCl 50 ml @ 1 mls/hr Q24H IV 08/31/24 09:00 08/31/24 09:00 5 MLS/HR Ondansetron HCl 4 mg Q4HP PRN IV 08/31/24 15:00 UNV Docusate Sodium 100 mg BIDPRN PRN PO 08/31/24 15:00 UNV Acetaminophen 650 mg Q6HP PRN PO 08/31/24 15:00 UNV Nitroglycerin 0.4 mg Q5MINP PRN SL 08/31/24 15:00 UNV Morphine Sulfate 2 mg Q30M PRN IV 08/31/24 15:00 UNV Exam Vital Signs Vital Signs Date Time Temp Pulse Resp B/P (MAP) Pulse Ox O2 Delivery O2 Flow Rate FiO2 08/31/24 13:52 128 21 98/64 (75) 99 30 08/31/24 11:27 96.7 96.7 08/31/24 09:05 Room Air* 0 General Appearance: Other (Patient is intubated and sedated) HEENT: Atraumatic Respiratory: Other (Diminished breath sounds) Cardiovascular: Other (ST) Abdominal: Normal bowel sounds, Soft, No tenderness Extremities: No clubbing, No cyanosis, No edema, Normal pulses Skin: No rashes (shingles to left torso) Neuro: Other (intubated adn sedated) Labs/Xrays Labs Test 08/31/24 13:15 08/31/24 12:44 08/31/24 11:53 08/31/24 10:52 Range/Units Urine Color Light-yellow Yellow Urine Clarity Turbid H Clear Urine pH 5.0 5.0-9.0 Urine Specific [place] 1.016 1.001-1.035 Urine Protein 1+ H Negative Urine Ketones Negative Negative Urine Blood Trace H Negative /uL Urine Nitrite Negative Negative Urine Bilirubin Negative Negative Urine Urobilinogen Normal Negative mg/dL Urine Leukocyte Esterase Negative Negative /uL Urine RBC 2 0 - 3 /hpf Urine Microscopic WBC 3 0-3 /HPF Urine Squamous Epithelial Cells None seen <5 /hpf Urine Bacteria Few H None Seen /hpf Urine Hyaline Casts Few 0 - 2 /lpf Urine Glucose Normal Normal mg/dL Troponin I High Sensitivity 46 </=54 ng/L Lactic Acid Level 3.5 *H 0.4-2.0 mmol/L Test 08/31/24 10:43 08/31/24 09:42 Range/Units Blood Gas Specimen Type Arterial Blood Gas Sample Site Right brachial Blood Gas Patient Temperature 37.0 Arterial Blood Date Drawn [id number] Arterial Blood pH 7.324 L 7.350-7.450 Arterial Blood Partial Pressure CO2 36.9 35.0-48.0 mmHg Arterial Blood Partial Pressure O2 410.2 *H 83.0-108.0 mmHg Arterial Blood HCO3 18.8 L 21.0-28.0 mmol/L Arterial Blood Oxygen Saturation 99.7 H 94.0-98.0 % Arterial Blood Base Excess -6.6 L -2.0-3.0 mmol/L Arterial Blood Oxyhemoglobin 98.7 H 94.0-98.0 % Arterial Blood Carboxyhemoglobin 0.4 L 0.5-1.5 % Arterial Blood Methemoglobin 0.6 0.0-1.5 % Yazan Test N/a Blood Gas Total Hemoglobin 12.60 L 13.5-17.5 g/dL Blood Gas Set Respiration Rate 16.0 Blood Gas Modality Vent - ac FiO2 % 100.0 Blood Gas Tidal Volume 500.0 Blood Gas PEEP or CPAP 5.0 Blood Gas Critical Value Read Back Yes Blood Gas Notified Whom Roland puentes Blood Gas Notified Time [id number] Blood Gas Notified By Adrian bhagat White Blood Count 5.5 4.4-10.8 10^3/uL Red Blood Count 4.17 L 4.5-5.90 10^6/uL Hemoglobin 12.3 L 13.5-17.5 g/dL Hematocrit 35.3 L 41.0-53.0 % Mean Corpuscular Volume 84.7 80.0-100.0 fL Mean Corpuscular Hemoglobin 29.6 28.0-32.0 pg Mean Corpuscular Hemoglobin Concent 34.9 32.0-36.0 g/dL Red Cell Distribution Width 14.9 H 11.8-14.3 % Platelet Count 338 140-450 10^3/uL Mean Platelet Volume 7.8 6.9-10.8 fL Neutrophils (%) (Auto) 37.0-80.0 % Lymphocytes (%) (Auto) 10.0-50.0 % Monocytes (%) (Auto) 0.0-12.0 % Basophils (%) (Auto) 0.0-2.0 % Neutrophils # (Auto) 1.6-8.6 10 ^3/uL Lymphocytes # (Auto) 0.4-5.4 10 ^3/uL Monocytes # (Auto) 0-1.3 10 ^3/uL Differential Total Cells Counted 100.0 100 Neutrophils % (Manual) 71 37.0-80.0 Band Neutrophils % (Manual) 22 Lymphocytes % (Manual) 6 L 10.0-50.0 Monocytes % (Manual) 1 0-12 Eosinophils % (Manual) 0 0-7 Basophils % (Manual) 0 0.0-2.0 Metamyelocytes % (manual) 0 Myelocytes % (Manual) 0 Promyelocytes % (Manual) 0 Blast Cells % (Manual) 0 Reactive Lymphocytes 0 Platelet Estimate Adequate Sodium Level 143 136-145 mmol/L Potassium Level 4.5 3.5-5.1 mmol/L Chloride Level 110 H 98-107 mmol/L Carbon Dioxide Level 19 L 20-31 mmol/L Anion Gap 14 5-15 Blood Urea Nitrogen 61 H 9-23 mg/dL Creatinine 4.08 H 0.700-1.30 mg/dL Glomerular Filtration Rate Calc 15 >90 mL/min BUN/Creatinine Ratio 15.0 10.0-20.0 Serum Glucose 145 H 74-106 mg/dL Calcium Level 9.9 8.7-10.4 mg/dL EXAM: CT HEAD WITHOUT CONTRAST FINDINGS: There is no evidence of acute intracranial hemorrhage, mass, mass effect midline shift. There is no hydrocephalus or extra-axial fluid collection. There is moderate generalized parenchymal volume loss. There are moderate chronic microvascular ischemic changes in the supratentorial white matter. Hui-white matter differentiation appears maintained. There is complete opacification of the right maxillary sinus with likely inspissated secretions the mastoid air cells are clear. The calvarium is i ntact. IMPRESSION: 1. No acute intracranial process. INDICATION: sob FINDINGS: Endotracheal tube 6 cm from the oneal. Nasogastric tube tip in the stomach.. Cardiomegaly. The bony structures of the chest are intact without fracture. IMPRESSION: 1. Cardiomegaly with CHF. Lines and tubes as above. Assessment/Plan Assessment/Plan Assessment: CHF exacerbation, Sepsis, Pneumonia, Cardiomegaly, Malnutrition, Dehydration, Hypotension, Hyperlipidemia, Diabetes, Shingles, Plan: Admit to ICU, Mechanical ventilation, IV antibiotics, IV hydration, Accu checks Q 6 hours with sliding scale, Home medications reconciled, ABG in AM, Portable chest X-ray in am, Protonix IV, Lovenox, Plan discussed with: Patient My Orders Orders - GENO BERNAL Procedure Category Date Status Time Admit ADMIT 08/31/24 Transmitted 14:46 Code Status CODE 08/31/24 Transmitted 14:46 Ondansetron Hcl PHA 08/31/24 Logged (Zofran) 15:00 Docusate Sodium PHA 08/31/24 Logged Capsule (Colace 15:00 Complete Blood Count LAB 09/01/24 Verified 04:00 Comprehensive LAB 09/01/24 Verified Metabolic Panel 04:00 Npo (Nothing By DIET 08/31/24 Transmitted Mouth) Diet Dinner Condition: Critical TONYA 08/31/24 In Process 14:46 Acetaminophen Tablet PHA 08/31/24 Logged (Tylenol Tablet) 15:00 Nitroglycerin PHA 08/31/24 Logged Sublingual (Ntrostat 15:00 Morphine Sulfate PHA 08/31/24 Logged Injection 15:00 Stat Ekg For Chest TONYA 08/31/24 In Process Pain 14:46 Notify Md Of Changes TONYA 08/31/24 In Process From Base 14:46 Buckle Attacher For TONYA 08/31/24 In Process 24 Hours 14:46 Emergency Dysrhythmia TONYA 08/31/24 In Process Protocol 14:46 Rhythm Strips Once [facility] 08/31/24 In Process Every Shift 14:46 Oxygen By Nasal RT 08/31/24 Transmitted Cannula 14:46 Clopidogrel Bisulfate PHA 09/01/24 Transmitted (Plavix) 10:00 Levothyroxine Tablet PHA 09/01/24 Transmitted (Synthroid Tablet) 10:00 Memantine Tablet PHA 09/01/24 Transmitted (Namenda Tablet) 10:00 Midodrine Tablet PHA 08/31/24 Transmitted (Proamatine Tablet) 22:00 (Nf) Atorvastatin PHA 09/01/24 Transmitted Calcium 10:00 (Nf) Quetiapine PHA 08/31/24 Transmitted Fumerate (Quetiapine 22:00 Date of Service: Aug 31, 2024 Billing Provider: GENO BERNAL Common Visit Codes: [id number] INP/OBS CARE (HIGH) GENO BERNAL Aug 31, 2024 15:11
[2024-08-31] MEDS ORDERED: DEXTROSE (50%) 50ML SYRG IV PRN (15:15)
[2024-08-31] MEDS: ACCU-CHEK COMFORT CURVE STRIP VI SCH (18:00)
[2024-08-31] MEDS: InsuLIN REG 1unit/0.01ml Soln (100units/ml) SC SCH (18:35)
[2024-08-31] MEDS: QUEtiapine FUMARATE 25 MG TAB PO SCH (22:00)
[2024-08-31] MEDS: MIDODRINE HCL 10 MG TAB PO SCH (22:00)
[2024-08-31] MEDS: fentaNYL Drip 2500mCg/250mlNS 250 ML IV SCH (23:08)
[2024-08-31] MEDS: PANTOPRAZOLE 40 MG/10 ML VIAL INJ IV SCH (23:08)
[2024-08-31] MEDS: ONDANSETRON HCL 4 MG/2 ML VIAL IV PRN (23:34)
[2024-09-01] VITALS (104 sets, daily range): BP systolic 85–155; BP diastolic 42–73; PULSE 92–113; RESP 9–22; TEMP 97.2–99.5; O2SAT 86–100
--- NOTE | 2024-09-01 03:33 | DVH ---
CHEST RADIOGRAPH Indication: Intubated Technique: Single frontal view of the chest was obtained Comparison: XY CHEST PORTABLE on DOS: 08/31/24 IMPRESSION: Heart appears stable in size. There is pulmonary vascular congestion with interstitial airspace opaci ties, similar to prior examination 2 mildly improved. No sizable effusion or pneumothorax. Support li rosita and tubes appear unchanged in satisfactory position.
[2024-09-01 05:33] LABS: Basophils # (auto) 0 10 ^3/uL (0-0.2); Basophils % (auto) 0.2 % (0.0-2.0); Eosinophils # (auto) 0 10 ^3/uL (0-0.8); Hematocrit 28.8 % (41.0-53.0); Lymphocytes # (auto) 1.1 10 ^3/uL (0.4-5.4); Lymphocytes % (auto) 9.2 % (10.0-50.0); Mean Corpuscular Hemoglobin 29.3 pg (28.0-32.0); Mean Corpuscular Hgb Conc. 34.6 g/dL (32.0-36.0); Mean Corpuscular Volume 84.6 fL (80.0-100.0); Monocytes # (auto) 0.4 10 ^3/uL (0-1.3); Monocytes % (auto) 3.7 % (0.0-12.0); Neutrophils # (auto) 10.5 10 ^3/uL (1.6-8.6); Neutrophils % (auto) 86.9 % (37.0-80.0); Nucleated Red Blood Cells % 0.1 %; Platelet Count (auto) 277 10^3/uL (140-450); White Blood Cell 12.1 10^3/uL (4.4-10.8)
[2024-09-01 05:40] LABS: Alanine Aminotransferase 25 U/L (7-40); Alkaline Phosphatase 99 U/L (46-116); Calcium 8.8 mg/dL (8.7-10.4); Carbon Dioxide 21 mmol/L (20-31)
[2024-09-01 05:41] LABS: Albumin 3.8 g/dL (3.2-4.8); Anion Gap 13 (5-15); Aspartate Aminotransferase 19 U/L (13-40); Potassium 4.8 mmol/L (3.5-5.1); Sodium 143 mmol/L (136-145); Total Protein 6.4 g/dL (5.7-8.2)
[2024-09-01 05:42] LABS: BUN/Creatinine Ratio 20.3 (10.0-20.0); Bilirubin, Total 0.4 mg/dL (0.2-1.0)
[2024-09-01 05:49] LABS: Blood Urea Nitrogen 80 mg/dL (9-23); Chloride 109 mmol/L (98-107); Glucose 135 mg/dL (74-106)
[2024-09-01 06:55] LABS: Base Excess -6.2 mmol/L (-2.0-3.0)
[2024-09-01 08:07] LABS: PSA Free 3.84 ng/mL; Prostate Specific Antigen 16.7 ng/mL (0.0-4.0)
[2024-09-01] MEDS: CLOPIDOGREL BISULFATE 75 MG TAB PO SCH (09:58)
[2024-09-01] MEDS: MEMANTINE HCL 5 MG TAB PO SCH (09:58)
[2024-09-01] MEDS: ATORVASTATIN 20 MG TAB PO SCH (09:58)
[2024-09-01] MEDS: LEVOTHYROXINE SODIUM 100 MCG TAB PO SCH (09:58)
[2024-09-01] MEDS: ENOXAPARIN SOD 30 MG/0.3 ML SYRINGE SC SCH (09:59)
--- NOTE | 2024-09-01 11:44 | DVH ---
US KIDNEY HISTORY: R/O STRUCTURAL ABNORMALITY COMPARISON: None TECHNIQUE: Transverse and longitudinal grayscale and color doppler images were obtained of the kidney s and bladder. FINDINGS: Right kidney: Size: 8.9 cm Cortical thickness: Normal Echogenicity: Normal Stones: None Masses: None Hydronephrosis: None Ureters: Not well visualized. Other: None Left kidney: Size: 9.3 cm Cortical thickness: Normal Echogenicity: Normal Stones: None Masses: 1.7 x 1.6x x 1.9 cm left kidney mass. Hydronephrosis: None Ureters: Not well visualized. Other: None Bladder: Flores Other: None. IMPRESSION: 1.7 x 1.6x x 1.9 cm left kidney mass. Consider CT with IV contrast for further evaluation.
--- NOTE | 2024-09-01 12:07 | DVHCONRES ---
Date Seen: Sep 01, 2024 Resident Creating Document: SHANNON COLUNGA RESIDENT Referring Physician FOREST Rivera Reason for Consultation Elevated BUN and creatinine History of Present Illness Yfn Baires is a 69-year-old male with past medial history of dementia, hyperlipidemia, hypothyroidism, anxiety, hypotension, and prostate cancer who is a resident of [facility] assisted living. Per EMS they were called by the facility due to the patient being altered this morning. Patient was intubated shortly after arrival to ER due to acute metabolic encephalopathy and not able to maintain the airway. Patient was seen and examined on the bedside. He is on mechanical ventilation with FiO2 30%, tidal volume 500, peep 5 and respiratory rate 16. Allergies: Coded Allergies: NO KNOWN ALLERGIES (Unverified , 04/01/23) Home Meds Active Scripts Glipizide (Glipizide) 10 Mg Tab, 1 TAB PO BID, #60 TAB 5 Refills Prov:DAVE MOSES MD 08/25/24 Reported Medications Midodrine HCl (Midodrine Hydrochloride) 10 Mg Tab, 1 TAB PO TID 08/21/24 Losartan Potassium (Losartan Potassium) 25 Mg Tab, 1 TAB PO DAILY 08/21/24 Clopidogrel Bisulfate (CLOPIDOGREL) 75 Mg Tab, 1 TAB PO DAILY 08/21/24 Atorvastatin Calcium (ATORVASTATIN CALCIUM) 40 Mg Tab, 1 TAB PO DAILY 08/21/24 Quetiapine Fumerate (QUETIAPINE FUMARATE) 50 Mg Tab, 25 MG PO Q8HP PRN for mood stabilizer 08/21/24 Current Medications Current Medications Medications (Trade) Dose Ordered Sig/Danielle Route PRN Reason Start Time Stop Time Status Last Admin Ondansetron HCl (Zofran) 4 mg Q4HP PRN IV NAUSEA / VOMITING 08/31/24 15:00 08/31/24 23:34 Docusate Sodium (Colace Capsule) 100 mg BIDPRN PRN PO FOR CONSTIPATION 08/31/24 15:00 Acetaminophen (Tylenol Tablet) 650 mg Q6HP PRN PO PAIN SCALE 1-3 OR TEMP>100.4 08/31/24 15:00 Nitroglycerin (Ntrostat Sublingual) 0.4 mg Q5MINP PRN SL FOR CHEST PAIN 08/31/24 15:00 Morphine Sulfate 2 mg Q30M PRN IV FOR CHEST PAIN 08/31/24 15:00 Clopidogrel Bisulfate (Plavix) 75 mg DAILY PO 09/01/24 10:00 09/01/24 09:58 Levothyroxine Sodium (Synthroid Tablet) 100 mcg DAILY PO 09/01/24 10:00 09/01/24 09:58 Memantine (Namenda Tablet) 5 mg DAILY PO 09/01/24 10:00 09/01/24 09:58 Midodrine (Proamatine Tablet) 10 mg TID PO 08/31/24 22:00 09/01/24 06:29 Atorvastatin Calcium (Lipitor) 40 mg DAILY PO 09/01/24 10:00 09/01/24 09:58 Quetiapine Fumarate (SEROquel TABLET) 50 mg TID PO 08/31/24 22:00 09/01/24 06:29 Diagnostic Test (Pha) (Accu-Chek Comfort Curve T) 1 strip Q6HR 08/31/24 18:00 09/01/24 06:29 Insulin Human Regular (InsuLIN R) Q6HR SC 08/31/24 18:00 09/01/24 00:27 Dextrose 50 ml UD PRN IV Blood Sugar LESS THAN 60 08/31/24 15:15 Pantoprazole Sodium (Protonix) 40 mg BID IV 08/31/24 22:00 09/01/24 09:58 Enoxaparin Sodium (Lovenox) 30 mg DAILY SC 09/01/24 10:00 09/01/24 09:59 Fentanyl Citrate 250 ml @ 2.5 mls/hr Q24H IV 08/31/24 22:45 08/31/24 23:08 Sodium Bicarbonate 50 ml/ Sodium Chloride 1,050 ml @ 100 mls/hr [id number] IV 09/01/24 10:30 Vital Signs Vital Signs Date Time Temp Pulse Resp B/P (MAP) Pulse Ox O2 Delivery O2 Flow Rate FiO2 09/01/24 10:15 102 16 102/62 (75) 100 30 09/01/24 09:00 98.6 98.6 09/01/24 05:39 Mechanical Ventilator+ 08/31/24 09:05 0 Physical Exam General: RASS -3, afebrile, mucosae are moist Cardiovascular: Normal S1 and S2. No murmurs, gallops or rubs Respiratory: Mechanically assisted ventilation, equal bilateral airway entree. Clear lung sounds on auscultation Abdomen: Soft, nontender, no organomegaly, normal bowel sounds MSK/skin: Mobilization of limbs cannot be evaluated. Skin is dry and warm. Neurological: Orientation cannot be assessed. No apparent motor no sensitive deficits. Pupils are isocoric and reactive Labs/Diagnostic Data Labs Test 09/01/24 06:49 09/01/24 05:48 09/01/24 04:49 08/31/24 13:15 Range/Units Blood Gas Specimen Type Arterial Blood Gas Sample Site Right radial Blood Gas Patient Temperature 37.0 Arterial Blood Date Drawn [id number] Arterial Blood pH 7.400 7.350-7.450 Arterial Blood Partial Pressure CO2 29.0 L 35.0-48.0 mmHg Arterial Blood Partial Pressure O2 92.6 83.0-108.0 mmHg Arterial Blood HCO3 17.6 L 21.0-28.0 mmol/L Arterial Blood Oxygen Saturation 96.4 94.0-98.0 % Arterial Blood Base Excess -6.2 L -2.0-3.0 mmol/L Arterial Blood Oxyhemoglobin 95.6 94.0-98.0 % Arterial Blood Carboxyhemoglobin 0.3 L 0.5-1.5 % Arterial Blood Methemoglobin 0.5 0.0-1.5 % Yazan Test Modified Blood Gas Total Hemoglobin 10.30 L 13.5-17.5 g/dL Blood Gas Set Respiration Rate 16.0 Blood Gas Modality Vent - ac FiO2 % 30.0 Blood Gas Tidal Volume 500.0 Blood Gas PEEP or CPAP 5.0 POC Glucose 126 H 70-106 mg/dl White Blood Count 12.1 #H 4.4-10.8 10^3/uL Red Blood Count 3.40 L 4.5-5.90 10^6/uL Hemoglobin 10.0 #L 13.5-17.5 g/dL Hematocrit 28.8 #L 41.0-53.0 % Mean Corpuscular Volume 84.6 80.0-100.0 fL Mean Corpuscular Hemoglobin 29.3 28.0-32.0 pg Mean Corpuscular Hemoglobin Concent 34.6 32.0-36.0 g/dL Red Cell Distribution Width 15.0 H 11.8-14.3 % Platelet Count 277 140-450 10^3/uL Mean Platelet Volume 8.6 6.9-10.8 fL Neutrophils (%) (Auto) 86.9 H 37.0-80.0 % Lymphocytes (%) (Auto) 9.2 L 10.0-50.0 % Monocytes (%) (Auto) 3.7 0.0-12.0 % Eosinophils (%) (Auto) 0.0 0.0-7.0 % Basophils (%) (Auto) 0.2 0.0-2.0 % Neutrophils # (Auto) 10.5 H 1.6-8.6 10 ^3/uL Lymphocytes # (Auto) 1.1 0.4-5.4 10 ^3/uL Monocytes # (Auto) 0.4 0-1.3 10 ^3/uL Eosinophils # (Auto) 0 0-0.8 10 ^3/uL Basophils # (Auto) 0 0-0.2 10 ^3/uL Nucleated Red Blood Cells 0.1 % Sodium Level 143 136-145 mmol/L Potassium Level 4.8 3.5-5.1 mmol/L Chloride Level 109 H 98-107 mmol/L Carbon Dioxide Level 21 20-31 mmol/L Anion Gap 13 5-15 Blood Urea Nitrogen 80 #*H 9-23 mg/dL Creatinine 3.94 H 0.700-1.30 mg/dL Glomerular Filtration Rate Calc 16 >90 mL/min BUN/Creatinine Ratio 20.3 H 10.0-20.0 Serum Glucose 135 H 74-106 mg/dL Lactic Acid Level 1.6 0.4-2.0 mmol/L Calcium Level 8.8 8.7-10.4 mg/dL Total Bilirubin 0.4 0.2-1.0 mg/dL Aspartate Amino Transferase (AST) 19 13-40 U/L Alanine Aminotransferase (ALT) 25 7-40 U/L Alkaline Phosphatase 99 46-116 U/L B-Type Natriuretic Peptide 42.82 0-100 pg/mL Total Protein 6.4 5.7-8.2 g/dL Albumin 3.8 3.2-4.8 g/dL Vitamin D 25-Hydroxy 11.3 L 30.0-100 ng/mL Urine Color Light-yellow Yellow Urine Clarity Turbid H Clear Urine pH 5.0 5.0-9.0 Urine Specific [place] 1.016 1.001-1.035 Urine Protein 1+ H Negative Urine Ketones Negative Negative Urine Blood Trace H Negative /uL Urine Nitrite Negative Negative Urine Bilirubin Negative Negative Urine Urobilinogen Normal Negative mg/dL Urine Leukocyte Esterase Negative Negative /uL Urine RBC 2 0 - 3 /hpf Urine Microscopic WBC 3 0-3 /HPF Urine Squamous Epithelial Cells None seen <5 /hpf Urine Bacteria Few H None Seen /hpf Urine Hyaline Casts Few 0 - 2 /lpf Urine Glucose Normal Normal mg/dL Test 08/31/24 12:44 08/31/24 10:52 08/31/24 10:43 08/31/24 09:42 Range/Units Troponin I High Sensitivity 46 </=54 ng/L Free Prostate Specific Antigen 3.84 N/A ng/mL Percent Free Prostate Specific Ag 23.0 . % Prostate Specific Antigen Total 16.7 H 0.0-4.0 ng/mL Blood Gas Critical Value Read Back Yes Blood Gas Notified Whom Roland nielsen. Blood Gas Notified Time [id number] Blood Gas Notified By Adrian bhagat Differential Total Cells Counted 100.0 100 Neutrophils % (Manual) 71 37.0-80.0 Band Neutrophils % (Manual) 22 Lymphocytes % (Manual) 6 L 10.0-50.0 Monocytes % (Manual) 1 0-12 Eosinophils % (Manual) 0 0-7 Basophils % (Manual) 0 0.0-2.0 Metamyelocytes % (manual) 0 Myelocytes % (Manual) 0 Promyelocytes % (Manual) 0 Blast Cells % (Manual) 0 Reactive Lymphocytes 0 Platelet Estimate Adequate Microbiology Date/Time Source Procedure Growth Status 08/31/24 09:52 Blood Blood Culture - Preliminary NO GROWTH AFTER 24 HOURS OF INCUBATION. Resulted 08/31/24 09:15 Sputum Gram Stain Pending Resulted 08/31/24 09:15 Sputum Respiratory Culture - Preliminary Resulted Assessment Assessment: # GILBERT likely superimposed on CKD secondary to hemodynamically mediated/VMN # Dehydration # Hypotension # Metabolic acidosis # Sepsis # Possible Gram-positive/Gram-negative pneumonia # Acute hypoxic respiratory failure. # History of prostate cancer # Left renal mass, rule out RCC # Vitamin D defieciency Plan/Recommendations - 1/2 NS with bicarb at 100 mL/hour - Maintain hydration - Continue vasopressor to maintain BP - Control of infection as per primary - Appreciate urology consultation - Strict I&O - Avoid nephrotoxic medication - Will follow this patient Critical care spent time more than 81 minutes. Plan discussed with Dr. Gomez Patient seen and examined by myself in rounds today with the medicine resident, I agree with her assessment and plan Plan discussed with: Other (RN) SHANNON COLUNGA RESIDENT Sep 01, 2024 12:07 BASILIA GOMEZ MD Sep 02, 2024 12:23
[2024-09-01] MEDS: SODIUM BICARB 50mEq/50ml Vial 50 ML in SOD CHL 0.45% 1,000 ML IV SCH (12:48)
[2024-09-01] MEDS ORDERED: VANCOMYCIN PER PHARMACY 0 MG IV SCH (14:30)
--- NOTE | 2024-09-01 14:32 | DVHPN2 ---
Progress Note Date Seen: Sep 01, 2024 Medical Necessity Reason Pt with a Central, PICC or Fol: Yes The following are medically ne: Central Line, Franklin Catheter Reason for franklin catheter: Strict I&O Subjective Patient reports: No new complaints Review of Systems: HEENT:Normal, CVS:Normal, RESPIRATORY:Normal, GI:Normal, :Normal, MSK:Normal, NEURO:Normal Objective vital signs Vital Sign Date Time Temp Pulse Resp B/P (MAP) Pulse Ox O2 Delivery O2 Flow Rate FiO2 09/01/24 14:05 112 22 115/62 (79) 100 30 09/01/24 12:15 99.0 99.0 09/01/24 12:00 Mechanical Ventilator+ 08/31/24 09:05 0 Total Intake and Output 08/31/24 08/31/24 09/01/24 15:00 23:00 07:00 Intake Total 1790.5 ml 208.0 ml 134.50 ml Output Total 450 ml Balance 1790.5 ml 208.0 ml -315.50 ml medications Current Medications Medications Dose Ordered Sig/Danielle Route Start Time Stop Time Status Last Admin Dose Admin Norepinephrine Bitartrate 250 ml @ 3.75 mls/hr Q24H IV 08/31/24 09:00 08/31/24 09:00 3.75 MLS/HR Midazolam HCl 50 ml @ 1 mls/hr Q24H IV 08/31/24 09:00 09/01/24 08:25 7 MLS/HR Docusate Sodium 100 mg BIDPRN PRN PO 08/31/24 15:00 Acetaminophen 650 mg Q6HP PRN PO 08/31/24 15:00 Nitroglycerin 0.4 mg Q5MINP PRN SL 08/31/24 15:00 Morphine Sulfate 2 mg Q30M PRN IV 08/31/24 15:00 Clopidogrel Bisulfate 75 mg DAILY PO 09/01/24 10:00 09/01/24 09:58 75 MG Levothyroxine Sodium 100 mcg DAILY PO 09/01/24 10:00 09/01/24 09:58 100 MCG Diagnostic Test (Pha) 1 strip Q6HR 08/31/24 18:00 09/01/24 12:48 1 STRIP Insulin Human Regular Q6HR SC 08/31/24 18:00 09/01/24 12:49 2 UNITS Dextrose 50 ml UD PRN IV 08/31/24 15:15 Pantoprazole Sodium 40 mg BID IV 08/31/24 22:00 09/01/24 09:58 40 MG Enoxaparin Sodium 30 mg DAILY SC 09/01/24 10:00 09/01/24 09:59 30 MG Fentanyl Citrate 250 ml @ 2.5 mls/hr Q24H IV 08/31/24 22:45 08/31/24 23:08 2.5 MLS/HR Sodium Bicarbonate 50 ml/ Sodium Chloride 1,050 ml @ 100 mls/hr [id number] IV 09/01/24 10:30 09/01/24 12:48 100 MLS/HR Vancomycin HCl 0 ml @ 0 mls/hr UD IV 09/01/24 14:30 UNV Piperacillin Sod/ Tazobactam Sod 100 ml @ 25 mls/hr Q12HR IV 09/01/24 22:00 UNV Examination: GENERAL:Normal, HEENT:Normal, NECK:Normal, LUNGS:Normal, LUNGS:Abnormal (intubated), CVS:Normal, ABDOMEN:Normal, MSK:Normal, SKIN:Normal, NEURO:Normal, NEURO:Abnormal (sedated), :Normal laboratory and microbiology Laboratory Tests 09/01/24 04:49 Test 09/01/24 04:49 Range/Units Serum Glucose 135 H 74-106 mg/dL Microbiology Date/Time Source Procedure Growth Status 08/31/24 21:30 Nose MRSA Screen - Final Complete 08/31/24 09:52 Blood Blood Culture - Preliminary NO GROWTH AFTER 24 HOURS OF INCUBATION. Resulted 08/31/24 09:15 Sputum Gram Stain Pending Resulted 08/31/24 09:15 Sputum Respiratory Culture - Preliminary Resulted Problem List/Assessment/Plan Problem List/Assessment/Plan #1 acute resp failure: cont acv #2 septic shock with ?pneumonia: iv antibiotics, iv pressors #3 dementia #4 acute renal failure ?vasomotor nephropathy: ivf #5 left renal mass #6 dm: ssi #7 hypothyroidism #8 mod protein malnutrition #9 prostate cancer #10 no cpr Plan discussed with: Other (rn) My Orders My Orders Orders - RYANN LAUREN MD Procedure Category Date Status Time Echo 2d Mode Cardiac US 09/01/24 Logged DOP 14:20 Vancomycin Per PHA 09/01/24 Logged Pharmacy 14:30 Piperacillin-Tazob PHA 09/01/24 Logged 3.375gm (Zosyn 3.375g 14:30 Piperacillin-Tazob PHA 09/01/24 Logged 3.375gm (Zosyn 3.375g 22:00 Urine Bacterial TOAN 09/01/24 Logged Culture 14:20 Complete Blood Count LAB 09/02/24 Verified 06:00 Comprehensive LAB 09/02/24 Verified Metabolic Panel 06:00 Magnesium LAB 09/02/24 Verified 05:00 Hemoglobin A1c LAB 09/02/24 Verified 06:00 Thyroid Stimulating LAB 09/02/24 Verified Hormone 05:00 Abg W/ Co-Ox RT 09/02/24 Logged 06:00 Chest Portable XY 09/02/24 Logged 06:00 Critical Care Time (mins): 82 (critical care time outside procedures is 82 mins) Date of Service: Sep 01, 2024 Billing Provider: RYANN LAUREN MD Common Visit Codes: [id number] CARE 30-74 MIN, [id number] CARE-EACH +30MIN RYANN LAUREN MD Sep 01, 2024 14:32
[2024-09-01] MEDS: PIPERACILLIN-TAZOB 3.375GM 100 ML IV ONE (15:15)
[2024-09-01] MEDS: VANCOMYCIN 1GM/200ML PM 200 ML IV ONE (16:04)
[2024-09-01 16:49] LABS: Protein, Urine 53.5 mg/dL (1-14)
[2024-09-01 16:51] LABS: Creatinine, Urine 125.45 mg/dL (30.0-125.0); Urine Protein/Creatinine Ratio 0.43
--- NOTE | 2024-09-01 17:39 | DVHSR ---
APPROVED REPORT EXAM: LIMITED Two-dimensional and M-mode echocardiogram with Doppler and color Doppler. Blood Pressure: 115/62 mmHg INDICATION CHF RISK FACTORS Height: , Weight: DIMENSIONS LVDd3.2 (3.8-5.7cm)LA (2D)3.4 (1.9-4.0cm)Aortic Root3.0 (2.0-3.7cm) LVDs2.5 (2.5-4.0cm)LA (MM) (1.9-4.0cm)Aortic Cusp Exc1.3 (1.5-2.0cm) EF (%) 45.0 (55-70%)Rt. Atrium3.8 (1.9-4.0cm)Asc. Aorta cm IVSd1.2 (0.7-1.1cm)RV (D) (1.8-2.4cm) PWd1.0 (0.7-1.1cm) Mitral Valve MitralMitral Stenosis E wave0.90m/sMV Mean GR.mmHg A wave1.00m/sMV Peak GR.mmHg E/A ratio0.92D MVAcm2 Aortic Valve Aortic ValveAortic Stenosis V11.10m/Isa Mean GR.4mmHg V21.20m/Isa Peak GR.6mmHg LVOT Diameter2.3 (1.8-2.4cm)Doppler AVA3.81cm2 Other Information Quality : Technically LimitedRhythm : Atrial Fibrillation Technically limited study due to body habitus, patient position and on vent. Conclusion Technically good study. Sinus rhythm. Concentric LVH. Mild dilation of the sinuses of Valsalva. Valves are normal. EF of 60% with normal RV function. Dopplers unremarkable. No pericardial effusion masses or vegetations discernible.
[2024-09-01] MEDS: PIPERACILLIN-TAZOB 3.375GM 100 ML IV SCH (21:41)
[2024-09-02] VITALS (103 sets, daily range): BP systolic 97–171; BP diastolic 48–85; PULSE 86–111; RESP 9–21; TEMP 97.2–99.7; O2SAT 96–100
[2024-09-02 04:21] LABS: Basophils # (auto) 0.1 10 ^3/uL (0-0.2); Basophils % (auto) 0.8 % (0.0-2.0); Eosinophils # (auto) 0.1 10 ^3/uL (0-0.8); Eosinophils % (auto) 0.6 % (0.0-7.0); Hematocrit 24.1 % (41.0-53.0); Hemoglobin 8.5 g/dL (13.5-17.5); Mean Corpuscular Hemoglobin 29.7 pg (28.0-32.0); Mean Corpuscular Hgb Conc. 35.1 g/dL (32.0-36.0); Mean Corpuscular Volume 84.7 fL (80.0-100.0); Monocytes # (auto) 0.4 10 ^3/uL (0-1.3); Neutrophils % (auto) 83.6 % (37.0-80.0); Platelet Count (auto) 227 10^3/uL (140-450); Red Blood Cells 2.84 10^6/uL (4.5-5.90); Red Cell Distribution Width 15.4 % (11.8-14.3); White Blood Cell 9.5 10^3/uL (4.4-10.8)
[2024-09-02 04:40] LABS: Alanine Aminotransferase 20 U/L (7-40); Albumin 3.5 g/dL (3.2-4.8); Alkaline Phosphatase 92 U/L (46-116); Anion Gap 13 (5-15); Aspartate Aminotransferase 22 U/L (13-40); BUN/Creatinine Ratio 20.2 (10.0-20.0); Bilirubin, Total 0.4 mg/dL (0.2-1.0); Carbon Dioxide 22 mmol/L (20-31); Glucose 103 mg/dL (74-106); Magnesium 1.6 mg/dL (1.6-2.6); Potassium 4.3 mmol/L (3.5-5.1); Sodium 143 mmol/L (136-145); Total Protein 5.9 g/dL (5.7-8.2)
[2024-09-02 04:45] LABS: Blood Urea Nitrogen 79 mg/dL (9-23); Calcium 8.4 mg/dL (8.7-10.4); Chloride 108 mmol/L (98-107)
--- NOTE | 2024-09-02 05:50 | DVH ---
EXAM: XR Chest, 1 View CLINICAL INDICATION: resp failure TECHNIQUE: Frontal view of the chest. COMPARISON: XY CHEST PORTABLE on DOS: 08/20/24, XY CHEST PORTABLE on DOS: 04/01/23 FINDINGS: LUNGS AND PLEURAL SPACES: Left basilar atelectasis or pneumonia. No pneumothorax. HEART: Unremarkable. No cardiomegaly. MEDIASTINUM: Unremarkable. Normal mediastinal contour. BONES/JOINTS: Unremarkable. No acute fracture. TUBES, LINES AND DEVICES: Right internal jugular central venous catheter tip in the superior vena c kari. The endotracheal tube (ETT) is in satisfactory position. Enteric tube tip in the stomach. OTHER FINDINGS: . IMPRESSION: Left basilar atelectasis or pneumonia.
[2024-09-02 07:01] LABS: Base Excess -3.1 mmol/L (-2.0-3.0)
--- NOTE | 2024-09-02 11:03 | DVHPN2 ---
Progress Note Date Seen: Sep 02, 2024 Resident Creating Document: SHANNON COLUNGA RESIDENT Medical Necessity Reason Pt with a Central, PICC or Fol: Yes The following are medically ne: Central Line, Franklin Catheter Reason for franklin catheter: Strict I&O Subjective Review of Systems Yfn Baires is a 69-year-old male with past medial history of dementia, hyperlipidemia, hypothyroidism, anxiety, hypotension, and prostate cancer who is a resident of [facility]. Per EMS they were called by the facility due to the patient being altered this morning. Patient was intubated shortly after arrival to ER due to acute metabolic encephalopathy and not able to maintain the airway. Patient was seen and examined on the bedside. He is on mechanical ventilation with FiO2 30%, tidal volume 500, peep 5 and respiratory rate 16. Objective vital signs Vital Sign Date Time Temp Pulse Resp B/P (MAP) Pulse Ox O2 Delivery O2 Flow Rate FiO2 09/02/24 10:00 16 100 Mechanical Ventilator+ 30 30 09/02/24 08:15 105 139/60 (86) 09/02/24 08:00 99.0 99.0 08/31/24 09:05 0 Total Intake and Output 09/01/24 09/01/24 09/02/24 15:00 23:00 07:00 Intake Total 422.75 ml 1125.5 ml 842 ml Output Total 400 ml 450 ml Balance 422.75 ml 725.5 ml 392 ml medications Current Medications Medications Dose Ordered Sig/Danielle Route Start Time Stop Time Status Last Admin Dose Admin Norepinephrine Bitartrate 250 ml @ 3.75 mls/hr Q24H IV 08/31/24 09:00 08/31/24 09:00 3.75 MLS/HR Midazolam HCl 50 ml @ 1 mls/hr Q24H IV 08/31/24 09:00 09/01/24 08:25 7 MLS/HR Docusate Sodium 100 mg BIDPRN PRN PO 08/31/24 15:00 Acetaminophen 650 mg Q6HP PRN PO 08/31/24 15:00 Nitroglycerin 0.4 mg Q5MINP PRN SL 08/31/24 15:00 Morphine Sulfate 2 mg Q30M PRN IV 08/31/24 15:00 Clopidogrel Bisulfate 75 mg DAILY PO 09/01/24 10:00 09/01/24 09:58 75 MG Levothyroxine Sodium 100 mcg DAILY PO 09/01/24 10:00 09/02/24 10:23 100 MCG Diagnostic Test (Pha) 1 strip Q6HR 08/31/24 18:00 09/02/24 05:38 1 STRIP Insulin Human Regular Q6HR SC 08/31/24 18:00 09/01/24 12:49 2 UNITS Dextrose 50 ml UD PRN IV 08/31/24 15:15 Pantoprazole Sodium 40 mg BID IV 08/31/24 22:00 09/02/24 10:23 40 MG Enoxaparin Sodium 30 mg DAILY SC 09/01/24 10:00 09/01/24 09:59 30 MG Fentanyl Citrate 250 ml @ 2.5 mls/hr Q24H IV 08/31/24 22:45 08/31/24 23:08 2.5 MLS/HR Sodium Bicarbonate 50 ml/ Sodium Chloride 1,050 ml @ 100 mls/hr [id number] IV 09/01/24 10:30 09/02/24 06:02 100 MLS/HR Vancomycin HCl 0 ml @ 0 mls/hr UD IV 09/01/24 14:30 Piperacillin Sod/ Tazobactam Sod 100 ml @ 25 mls/hr Q12HR IV 09/01/24 22:00 09/02/24 10:23 25 MLS/HR Examination General: RASS -3, afebrile, mucosae are moist Cardiovascular: Normal S1 and S2. No murmurs, gallops or rubs Respiratory: Mechanically assisted ventilation, equal bilateral airway entree. Clear lung sounds on auscultation Abdomen: Soft, nontender, no organomegaly, normal bowel sounds MSK/skin: Mobilization of limbs cannot be evaluated. Skin is dry and warm. Neurological: Orientation cannot be assessed. No apparent motor no sensitive deficits. Pupils are isocoric and reactive laboratory and microbiology Laboratory Tests 09/02/24 03:38 Test 09/02/24 03:38 Range/Units Serum Glucose 103 74-106 mg/dL Microbiology Date/Time Source Procedure Growth Status 09/01/24 15:00 Urine - [place] Urine Culture - Preliminary Resulted 08/31/24 21:30 Nose MRSA Screen - Final Complete 08/31/24 09:52 Blood Blood Culture - Preliminary NO GROWTH AFTER 48 HOURS OF INCUBATION. Resulted 08/31/24 09:15 Sputum Gram Stain - Final Resulted 08/31/24 09:15 Sputum Respiratory Culture - Preliminary Resulted Labs and/or images reviewed: Labs reviewed by me, Image(s) reviewed by me Problem List/Assessment/Plan Problem List/Assessment/Plan Assessment: # GILBERT likely superimposed on CKD secondary to hemodynamically mediated/VMN # Dehydration # Hypotension # Metabolic acidosis # Sepsis # Possible Gram-positive/Gram-negative pneumonia # Acute hypoxic respiratory failure. # History of recent shingles # History of prostate cancer # Left renal mass, rule out RCC # Vitamin D deficiency Plan/Recommendations - Slightly improved kidney function and increased urine output. - 1/2 NS with bicarb at 100 mL/hour - Maintain hydration - Continue vasopressor to maintain BP - Control of infection as per primary - Appreciate urology consultation - Strict I&O - Avoid nephrotoxic medication - Will follow this patient Critical care spent time 41 minutes. Plan discussed with Dr. Gomez Patient seen and examined by myself today on rounds with the medicine resident, I agree with her assessment and plan Plan discussed with: Other (RN) SHANNON COLUNGA RESIDENT Sep 02, 2024 11:03 BASILIA GOMEZ MD Sep 02, 2024 12:25
[2024-09-02] MEDS: SODIUM BICARB 50mEq/50ml Vial 50 ML in SOD CHL 0.45% 1,000 ML IV SCH (15:00)
--- NOTE | 2024-09-02 15:09 | DVHPN2 ---
Progress Note Date Seen: Sep 02, 2024 Medical Necessity Reason Pt with a Central, PICC or Fol: Yes The following are medically ne: Central Line, Franklin Catheter Reason for franklin catheter: Strict I&O Subjective Patient reports: No new complaints Review of Systems: HEENT:Normal, CVS:Normal, RESPIRATORY:Normal, GI:Normal, :Normal, MSK:Normal, NEURO:Normal Objective vital signs Vital Sign Date Time Temp Pulse Resp B/P (MAP) Pulse Ox O2 Delivery O2 Flow Rate FiO2 09/02/24 14:25 90 18 134/69 (90) 99 30 09/02/24 13:30 97.2 97.2 09/02/24 12:00 Mechanical Ventilator+ 08/31/24 09:05 0 Total Intake and Output 09/01/24 09/01/24 09/02/24 15:00 23:00 07:00 Intake Total 422.75 ml 1125.5 ml 948 ml Output Total 400 ml 450 ml Balance 422.75 ml 725.5 ml 498 ml medications Current Medications Medications Dose Ordered Sig/Danielle Route Start Time Stop Time Status Last Admin Dose Admin Norepinephrine Bitartrate 250 ml @ 3.75 mls/hr Q24H IV 08/31/24 09:00 08/31/24 09:00 3.75 MLS/HR Midazolam HCl 50 ml @ 1 mls/hr Q24H IV 08/31/24 09:00 09/01/24 08:25 7 MLS/HR Docusate Sodium 100 mg BIDPRN PRN PO 08/31/24 15:00 Acetaminophen 650 mg Q6HP PRN PO 08/31/24 15:00 Nitroglycerin 0.4 mg Q5MINP PRN SL 08/31/24 15:00 Morphine Sulfate 2 mg Q30M PRN IV 08/31/24 15:00 Clopidogrel Bisulfate 75 mg DAILY PO 09/01/24 10:00 09/01/24 09:58 75 MG Levothyroxine Sodium 100 mcg DAILY PO 09/01/24 10:00 09/02/24 10:23 100 MCG Diagnostic Test (Pha) 1 strip Q6HR 08/31/24 18:00 09/02/24 12:16 1 STRIP Insulin Human Regular Q6HR SC 08/31/24 18:00 09/01/24 12:49 2 UNITS Dextrose 50 ml UD PRN IV 08/31/24 15:15 Pantoprazole Sodium 40 mg BID IV 08/31/24 22:00 09/02/24 10:23 40 MG Enoxaparin Sodium 30 mg DAILY SC 09/01/24 10:00 09/01/24 09:59 30 MG Fentanyl Citrate 250 ml @ 2.5 mls/hr Q24H IV 08/31/24 22:45 08/31/24 23:08 2.5 MLS/HR Sodium Bicarbonate 50 ml/ Sodium Chloride 1,050 ml @ 100 mls/hr [id number] IV 09/01/24 10:30 09/02/24 06:02 100 MLS/HR Vancomycin HCl 0 ml @ 0 mls/hr UD IV 09/01/24 14:30 Piperacillin Sod/ Tazobactam Sod 100 ml @ 25 mls/hr Q12HR IV 09/01/24 22:00 09/02/24 10:23 25 MLS/HR Examination: GENERAL:Normal, HEENT:Normal, NECK:Normal, LUNGS:Normal, LUNGS:Abnormal (intubated), CVS:Normal, ABDOMEN:Normal, MSK:Normal, SKIN:Normal, NEURO:Normal, :Normal laboratory and microbiology Laboratory Tests 09/02/24 03:38 Test 09/02/24 03:38 Range/Units Serum Glucose 103 74-106 mg/dL Microbiology Date/Time Source Procedure Growth Status 09/01/24 15:00 Urine - [place] Urine Culture - Preliminary Resulted 08/31/24 21:30 Nose MRSA Screen - Final Complete 08/31/24 09:52 Blood Blood Culture - Preliminary NO GROWTH AFTER 48 HOURS OF INCUBATION. Resulted 08/31/24 09:15 Sputum Gram Stain - Final Complete 08/31/24 09:15 Respiratory Culture - Final Enterobacter aerogenes Complete Problem List/Assessment/Plan Problem List/Assessment/Plan #1 acute resp failure: cont acv, cpap trial #2 septic shock with pneumonia with enterobacter: iv antibiotics, iv pressors #3 dementia #4 acute renal failure ?vasomotor nephropathy: ivf #5 left renal mass #6 dm: ssi #7 hypothyroidism #8 mod protein malnutrition #9 prostate cancer #10 no cpr long dw sister regards labs and treatment plan Plan discussed with: Other (sister) My Orders My Orders Orders - RYANN LAUREN MD Procedure Category Date Status Time Vancomycin 500mg/100ml PHA 09/02/24 In Process 16:00 Vancomycin,Random LAB 09/03/24 Verified 04:00 Creatinine LAB 09/03/24 Verified 04:00 Vancomycin Per TONYA 09/02/24 In Process Pharmacy Protoc 16:00 1/2nsw Sodium PHA 09/02/24 Transmitted Bicarbonate Drip 15:00 Nutritional PHA 09/02/24 Transmitted Supplements (Nepro 15:00 Basic Metabolic Panel LAB 09/03/24 Verified 06:00 Complete Blood Count LAB 09/03/24 Verified 06:00 Chest Portable XY 09/03/24 Transmitted 06:00 Abg W/ Co-Ox RT 09/03/24 Transmitted 06:00 Dietary Evaluation Review Comments: 1. TF Glucerna 1.2cal @ 60ml/hr. start @ 20ml/hr, increase 10ml/hr Q4H until goal is reached. 2. Water flush 150ml Q4H 3. TPN if NPO> 5 days Expected Outcomes/Goals: To meet at least 75% estimated needs Fu 2-3 days Critical Care Time (mins): 81 (critical care including dw sister was 81 mins) Date of Service: Sep 02, 2024 Billing Provider: RYANN LAUREN MD Common Visit Codes: [id number] CARE 30-74 MIN, [id number] CARE-EACH +30MIN RYANN LAUREN MD Sep 02, 2024 15:09
[2024-09-02] MEDS ORDERED: VANCOMYCIN 500mg/100mL 100 ML IV ONE (16:00)
[2024-09-02] MEDS: hydrALAZINE HCL 20 MG/ML VL IV PRN (17:22)
[2024-09-02] MEDS: Nepro With Carb Steady 1 Liter Bottle GT SCH (20:13)
[2024-09-03] VITALS (87 sets, daily range): BP systolic 110–185; BP diastolic 57–98; PULSE 90–114; RESP 10–21; TEMP 98.8–99.5; O2SAT 5–100
[2024-09-03 05:17] LABS: Basophils # (auto) 0 10 ^3/uL (0-0.2); Basophils % (auto) 0.3 % (0.0-2.0); Eosinophils # (auto) 0.1 10 ^3/uL (0-0.8); Eosinophils % (auto) 0.8 % (0.0-7.0); Hematocrit 24.7 % (41.0-53.0); Hemoglobin 8.7 g/dL (13.5-17.5); Lymphocytes # (auto) 1.1 10 ^3/uL (0.4-5.4); Lymphocytes % (auto) 9.5 % (10.0-50.0); Mean Corpuscular Hemoglobin 29.5 pg (28.0-32.0); Mean Corpuscular Volume 84.3 fL (80.0-100.0); Monocytes # (auto) 0.6 10 ^3/uL (0-1.3); Monocytes % (auto) 4.6 % (0.0-12.0); Neutrophils # (auto) 10.1 10 ^3/uL (1.6-8.6); Neutrophils % (auto) 84.8 % (37.0-80.0); Platelet Count (auto) 236 10^3/uL (140-450); Red Blood Cells 2.93 10^6/uL (4.5-5.90); Red Cell Distribution Width 15.2 % (11.8-14.3); White Blood Cell 11.9 10^3/uL (4.4-10.8)
[2024-09-03 05:19] LABS: Potassium 4.2 mmol/L (3.5-5.1); Sodium 145 mmol/L (136-145)
[2024-09-03 05:20] LABS: Anion Gap 12 (5-15); Calcium 8.9 mg/dL (8.7-10.4); Carbon Dioxide 24 mmol/L (20-31)
[2024-09-03 05:25] LABS: BUN/Creatinine Ratio 19.4 (10.0-20.0); Glucose 82 mg/dL (74-106)
[2024-09-03 05:31] LABS: Blood Urea Nitrogen 61 mg/dL (9-23); Chloride 109 mmol/L (98-107)
--- NOTE | 2024-09-03 06:07 | DVH ---
CHEST RADIOGRAPH Indication: resp failure Technique: Single frontal view of the chest was obtained Comparison: XY CHEST PORTABLE on DOS: 09/02/24 FINDINGS: Lines and Tubes: The endotracheal tube terminates 4.1 cm above the oneal. The enteric tube terminate s in the stomach. Right central venous catheter terminates in the superior vena cava. Lungs: Hazy bilateral opacities. Pleura: No effusion. No pneumothorax. Cardiomediastinal contours: Unremarkable Bones: No acute osseous abnormality. IMPRESSION: 1. Stable position of the support lines and tubes. 2. Bilateral opacities which may reflect congestion or pneumonia.
[2024-09-03 08:27] LABS: Base Excess -0.5 mmol/L (-2.0-3.0)
--- NOTE | 2024-09-03 10:33 | DVHPN2 ---
Subjective Patient intubated and sedated Reviewed: Care Plan, H&P, Labs, Medications Changes from previous H/P or p: No Changes General: Per HPI Eyes: No Pain, No Vision change, No Conjunctivae inflammation, No Eyelid inflammation, No Other, No Redness ENT: No Ear pain, No Ear discharge, No Nose pain, No Nose discharge, No Nose congestion, No Mouth pain, No Mouth swelling, No Throat pain, No Throat swelling, No Other Cardiovascular: No Chest Pain, No Palpitations, No Orthopnea, No Paroxysmal Noc. Dyspnea, No Edema, No Lt Headedness, No Other Respiratory: No Cough, No Dry, No Shortness of breath, No SOB with excertion, No Wheezing, No Hemoptysis, No Pleuritic Pain, No Sputum, No Other Gastrointestinal: No Nausea, No Vomiting, No Abdominal Pain, No Diarrhea, No Constipation, No Melena, No Hematochezia, No Other Genitourinary: No Dysuria, No Frequency, No Incontinence, No Hematuria, No Retention, No Other Musculoskeletal: No other, No neck pain, No shoulder pain, No arm pain, No back pain, No hand pain, No leg pain, No foot pain Skin: No Rash, No Lesions, No Jaundice, No Bruising, No Other Objective Vitals Vital Signs Date Time Temp Pulse Resp B/P (MAP) Pulse Ox O2 Delivery O2 Flow Rate FiO2 09/03/24 09:44 101 20 144/77 (99) 100 30 09/03/24 08:00 Mechanical Ventilator+ 09/03/24 04:00 99.1 99.1 Intake/Output Intake and Output 09/03/24 07:00 Intake Total 2205.5 ml Output Total 1625 ml Balance 580.5 ml Intake Oral 40 ml IV Total 2133.5 ml Tube Feeding 32 ml Output Urine Total 1625 ml General Appearance: mild distress, Other (Encephalopathic) HEENT: Atraumatic, PERRLA Lungs: Clear to auscultation, Normal air movement, Other (Mechanical ventilation) Cardiovascular: Normal S1, Normal S2 Genitourinary: No Apparent Abnormalities Neuro: Other (Unable to assess) Skin: Dry, Intact Psych/Mental Status: Other (Unable to assess) Medications Current Medications Medications Dose Ordered Sig/Danielle Route Start Time Stop Time Status Last Admin Dose Admin Norepinephrine Bitartrate 250 ml @ 3.75 mls/hr Q24H IV 08/31/24 09:00 08/31/24 09:00 3.75 MLS/HR Midazolam HCl 50 ml @ 1 mls/hr Q24H IV 08/31/24 09:00 09/01/24 08:25 7 MLS/HR Docusate Sodium 100 mg BIDPRN PRN PO 08/31/24 15:00 Acetaminophen 650 mg Q6HP PRN PO 08/31/24 15:00 Nitroglycerin 0.4 mg Q5MINP PRN SL 08/31/24 15:00 Morphine Sulfate 2 mg Q30M PRN IV 08/31/24 15:00 Levothyroxine Sodium 100 mcg DAILY PO 09/01/24 10:00 09/03/24 08:57 100 MCG Diagnostic Test (Pha) 1 strip Q6HR 08/31/24 18:00 09/03/24 05:59 1 STRIP Insulin Human Regular Q6HR SC 08/31/24 18:00 09/01/24 12:49 2 UNITS Dextrose 50 ml UD PRN IV 08/31/24 15:15 Pantoprazole Sodium 40 mg BID IV 08/31/24 22:00 09/03/24 08:57 40 MG Fentanyl Citrate 250 ml @ 2.5 mls/hr Q24H IV 08/31/24 22:45 09/03/24 00:50 5 MLS/HR Piperacillin Sod/ Tazobactam Sod 100 ml @ 25 mls/hr Q12HR IV 09/01/24 22:00 09/03/24 08:58 25 MLS/HR Sodium Bicarbonate 50 ml/ Sodium Chloride 1,050 ml @ 75 mls/hr Q14H IV 09/02/24 15:00 09/03/24 05:58 75 MLS/HR Enteral Nutritional Formula 1,000 ml 30ML/HR GT 09/02/24 15:00 09/02/24 20:13 1,000 ML Hydralazine HCl 10 mg Q6HP PRN IV 09/02/24 17:15 09/03/24 00:52 10 MG Laboratory Results Laboratory Tests 09/03/24 04:51 Chemistry Test 09/03/24 04:51 Calcium Level 8.9 mg/dL (8.7-10.4) Urinalysis Test 08/31/24 13:15 09/01/24 15:00 Urine Color Light-yellow (Yellow) Urine Clarity Turbid (Clear) H Urine pH 5.0 (5.0-9.0) Urine Specific [place] 1.016 (1.001-1.035) Urine Protein 1+ (Negative) H Urine Ketones Negative (Negative) Urine Blood Trace /uL (Negative) H Urine Nitrite Negative (Negative) Urine Bilirubin Negative (Negative) Urine Urobilinogen Normal mg/dL (Negative) Urine Leukocyte Esterase Negative /uL (Negative) Urine RBC 2 /hpf (0 - 3) Urine Microscopic WBC 3 /HPF (0-3) Urine Squamous Epithelial Cells None seen /hpf (<5) Urine Bacteria Few /hpf (None Seen) H Urine Hyaline Casts Few /lpf (0 - 2) Urine Glucose Normal mg/dL (Normal) Urine Creatinine 125.45 mg/dL (30.0-125.0) H Urine Protein/Creatinine Ratio 0.43 Urine Sodium 20 mmol/L (40-220) L Urine Total Protein 53.5 mg/dL (1-14) H Blood Gas Results Test 09/03/24 08:21 Arterial Blood pH 7.442 (7.350-7.450) FiO2 % 30.0 Microbiology Microbiology Date/Time Source Procedure Growth Status 09/01/24 15:00 Urine - [place] Urine Culture - Preliminary Resulted 08/31/24 21:30 Nose MRSA Screen - Final Complete 08/31/24 09:52 Blood Blood Culture - Preliminary NO GROWTH AFTER 72 HOURS OF INCUBATION. Resulted 08/31/24 09:15 Sputum Gram Stain - Final Complete 08/31/24 09:15 Respiratory Culture - Final Enterobacter aerogenes Complete Labs and/or images reviewed: Labs reviewed by me, Image(s) reviewed by me Assessment/Plan Assessment/Plan Impression: -metabolic encephalopathy secondary to UTI, renal failure, dementia -dementia -community-acquired pneumonia with Enterococcus -chronic kidney disease stage 4 -sepsis secondary to pneumonia Plan: -received report from primary hospitalist. Long discussion made with the patient's family today regarding plan of care. At this time they will contemplate compassionate extubation with possible comfort care. -continue antibiotic therapy -continue IV hydration -PUD, DVT prophylaxis -continue current ventilator settings Critical care time spent with patient discussing and formulating plan of care: 90 minutes. This does not include time spent performing procedures. This medical document was created using an electronic medical record system with [employer] dictation system. Although this document has been carefully reviewed, there may still be some phonetic and typographical errors. These areas are purely typographical due to imperfections of the software programs, and do not reflect any compromise in the patient's medical care. Plan discussed with: Patient, Daughter, Other (RN) Date of Service: Sep 03, 2024 Billing Provider: IFTIKHAR ZIMMERMAN NP Common Visit Codes: [id number] CARE 30-74 MIN, [id number] CARE-EACH +30MIN IFTIKHAR ZIMMERMAN NP Sep 03, 2024 10:33
--- NOTE | 2024-09-03 11:37 | DVHPN2 ---
Progress Note Date Seen: Sep 03, 2024 Resident Creating Document: SHANNON COLUNGA RESIDENT Medical Necessity Reason Pt with a Central, PICC or Fol: Yes The following are medically ne: Central Line, Franklin Catheter Reason for franklin catheter: Strict I&O Subjective Review of Systems Yfn Baires is a 69-year-old male with past medial history of dementia, hyperlipidemia, hypothyroidism, anxiety, hypotension, and prostate cancer who is a resident of [facility]. Per EMS they were called by the facility due to the patient being altered this morning. Patient was intubated shortly after arrival to ER due to acute metabolic encephalopathy and not able to maintain the airway. Patient was seen and examined on the bedside. He is on mechanical ventilation with FiO2 30%, tidal volume 500, peep 5 and respiratory rate 16. Family had a long discussion regarding goals of care with the primary team and family wanted compassionate extubation and possible comfort care. Objective vital signs Vital Sign Date Time Temp Pulse Resp B/P (MAP) Pulse Ox O2 Delivery O2 Flow Rate FiO2 09/03/24 09:44 101 20 144/77 (99) 100 30 09/03/24 08:00 Mechanical Ventilator+ 09/03/24 04:00 99.1 99.1 Total Intake and Output 09/02/24 09/02/24 09/03/24 15:00 23:00 07:00 Intake Total 841 ml 650 ml 714.5 ml Output Total 775 ml 850 ml Balance 841 ml -125 ml -135.5 ml medications Current Medications Medications Dose Ordered Sig/Danielle Route Start Time Stop Time Status Last Admin Dose Admin Lorazepam 1 mg Q1HP PRN IV 09/03/24 11:00 Morphine Sulfate 1 mg Q1HP PRN IV 09/03/24 11:15 Examination General: RASS -3, afebrile, mucosae are moist Cardiovascular: Normal S1 and S2. No murmurs, gallops or rubs Respiratory: Mechanically assisted ventilation, equal bilateral airway entree. reduced breath sound bilaterally. Abdomen: Soft, nontender, no organomegaly, normal bowel sounds MSK/skin: Mobilization of limbs cannot be evaluated. Skin is dry and warm. Neurological: Orientation cannot be assessed. No apparent motor no sensitive deficits. Pupils are isocoric and reactive laboratory and microbiology Laboratory Tests 09/03/24 04:51 Test 09/03/24 04:51 Range/Units Serum Glucose 82 74-106 mg/dL Microbiology Date/Time Source Procedure Growth Status 09/01/24 15:00 Urine - [place] Urine Culture - Preliminary Resulted 08/31/24 21:30 Nose MRSA Screen - Final Complete 08/31/24 09:52 Blood Blood Culture - Preliminary NO GROWTH AFTER 72 HOURS OF INCUBATION. Resulted 08/31/24 09:15 Sputum Gram Stain - Final Complete 08/31/24 09:15 Respiratory Culture - Final Enterobacter aerogenes Complete Labs and/or images reviewed: Labs reviewed by me, Image(s) reviewed by me Problem List/Assessment/Plan Problem List/Assessment/Plan Assessment: # GILBERT likely superimposed on CKD secondary to hemodynamically mediated/VMN # Dehydration # Hypotension # Metabolic acidosis # Sepsis # Possible Gram-positive/Gram-negative pneumonia # Acute hypoxic respiratory failure. # History of recent shingles # History of prostate cancer # Left renal mass, rule out RCC # Vitamin D defieciency Plan/Recommendations - Slightly improved kidney function and increased urine output. - 1/2 NS with bicarb at 100 mL/hour - Maintain hydration - Continue vasopressor to maintain BP - Control of infection as per primary - Appreciate urology consultation - Strict I&O - Avoid nephrotoxic medication family wanted compassionate extubation and possible comfort care. We will sign off at this point. Critical care spent time 41 minutes. Plan discussed with Dr. Denton Plan discussed with: Daughter, Other (RN) Dietary Evaluation Review Comments: 1. TF Glucerna 1.2cal @ 60ml/hr. start @ 20ml/hr, increase 10ml/hr Q4H until goal is reached. 2. Water flush 150ml Q4H 3. TPN if NPO> 5 days Expected Outcomes/Goals: To meet at least 75% estimated needs Fu 2-3 days SHANNON COLUNGA RESIDENT Sep 03, 2024 11:37
[2024-09-03] MEDS: MORPHINE SULFATE 4 MG/ML SYR/VIAL IV PRN (11:54)
[2024-09-03] MEDS: LORazepam 2MG/ML-1ML VIAL IV PRN (16:34)
[2024-09-04] VITALS (13 sets, daily range): BP systolic 157–189; BP diastolic 82–92; PULSE 27–114; RESP 18–22; TEMP 98–100.3; O2SAT 93–100
--- NOTE | 2024-09-04 15:49 | DVHPN2 ---
Subjective No changes Reviewed: Care Plan, H&P, Labs, Medications Changes from previous H/P or p: No Changes General: Per HPI Eyes: No Pain, No Vision change, No Conjunctivae inflammation, No Eyelid inflammation, No Other, No Redness ENT: No Ear pain, No Ear discharge, No Nose pain, No Nose discharge, No Nose congestion, No Mouth pain, No Mouth swelling, No Throat pain, No Throat swelling, No Other Cardiovascular: No Chest Pain, No Palpitations, No Orthopnea, No Paroxysmal Noc. Dyspnea, No Edema, No Lt Headedness, No Other Respiratory: No Cough, No Dry, No Shortness of breath, No SOB with excertion, No Wheezing, No Hemoptysis, No Pleuritic Pain, No Sputum, No Other Gastrointestinal: No Nausea, No Vomiting, No Abdominal Pain, No Diarrhea, No Constipation, No Melena, No Hematochezia, No Other Genitourinary: No Dysuria, No Frequency, No Incontinence, No Hematuria, No Retention, No Other Musculoskeletal: No other, No neck pain, No shoulder pain, No arm pain, No back pain, No hand pain, No leg pain, No foot pain Skin: No Rash, No Lesions, No Jaundice, No Bruising, No Other Objective Vitals Vital Signs Date Time Temp Pulse Resp B/P (MAP) Pulse Ox O2 Delivery O2 Flow Rate FiO2 09/04/24 13:00 98.2 113 22 167/85 (112) 97 98.2 09/04/24 12:35 Nasal Cannula* 3 32 Intake/Output Intake and Output 09/04/24 07:00 Intake Total 462.5 ml Output Total 1700 ml Balance -1237.5 ml IV Total 462.5 ml Output Urine Total 1700 ml General Appearance: Other (Lethargic) HEENT: Atraumatic Lungs: Other (Few crackles bilateral lungs) Cardiovascular: Regular rate Psych/Mental Status: Other (Unable to assess) Medications Current Medications Medications Dose Ordered Sig/Danielle Route Start Time Stop Time Status Last Admin Dose Admin Lorazepam 1 mg Q1HP PRN IV 09/03/24 11:00 09/04/24 05:14 1 MG Morphine Sulfate 1 mg Q1HP PRN IV 09/03/24 11:15 09/04/24 09:34 1 MG Laboratory Results Laboratory Tests 09/03/24 04:51 Urinalysis Test 08/31/24 13:15 09/01/24 15:00 Urine Color Light-yellow (Yellow) Urine Clarity Turbid (Clear) H Urine pH 5.0 (5.0-9.0) Urine Specific [place] 1.016 (1.001-1.035) Urine Protein 1+ (Negative) H Urine Ketones Negative (Negative) Urine Blood Trace /uL (Negative) H Urine Nitrite Negative (Negative) Urine Bilirubin Negative (Negative) Urine Urobilinogen Normal mg/dL (Negative) Urine Leukocyte Esterase Negative /uL (Negative) Urine RBC 2 /hpf (0 - 3) Urine Microscopic WBC 3 /HPF (0-3) Urine Squamous Epithelial Cells None seen /hpf (<5) Urine Bacteria Few /hpf (None Seen) H Urine Hyaline Casts Few /lpf (0 - 2) Urine Glucose Normal mg/dL (Normal) Urine Creatinine 125.45 mg/dL (30.0-125.0) H Urine Protein/Creatinine Ratio 0.43 Urine Sodium 20 mmol/L (40-220) L Urine Total Protein 53.5 mg/dL (1-14) H Microbiology Microbiology Date/Time Source Procedure Growth Status 09/01/24 15:00 Urine - [place] Urine Culture - Final Complete 08/31/24 21:30 Nose MRSA Screen - Final Complete 08/31/24 09:52 Blood Blood Culture - Preliminary NO GROWTH AFTER 72 HOURS OF INCUBATION. Resulted 08/31/24 09:15 Sputum Gram Stain - Final Complete 08/31/24 09:15 Respiratory Culture - Final Enterobacter aerogenes Complete Assessment/Plan Assessment/Plan Altered mental status Congestive heart failure with acute on chronic UTI and pneumonia with Enterococcus/sepsis Septic encephalopathy Dementia Chronic kidney disease stage 4 Plan: Continue current plan of care. Patient is terminal Plan discussed with: Other (Nursing) My Orders Orders - CRISTOBAL LEIVA MD Procedure Category Date Status Time * Manager Generation CONS 09/04/24 Transmitted Consult Date of Service: Sep 04, 2024 Billing Provider: CRISTOBAL LEIVA MD Common Visit Codes: [id number] INP/OBS CARE(MOD) CRISTOBAL LEIVA MD Sep 04, 2024 15:49
--- NOTE | 2024-09-04 17:11 | DVHDS2 ---
Discharge Summary Date of Admission Aug 31, 2024 at 14:46 Date of Discharge: Sep 04, 2024 Admitting Diagnosis Altered mental status Labs/Diagnostic Data: Laboratory Results Test 09/03/24 08:21 09/03/24 05:43 09/03/24 04:51 09/02/24 03:38 Blood Gas Specimen Type Arterial Blood Gas Sample Site Right radial Blood Gas Patient Temperature 37.0 Arterial Blood Date Drawn [id number] Arterial Blood pH 7.442 (7.350-7.450) Arterial Blood Partial Pressure CO2 35.0 mmHg (35.0-48.0) Arterial Blood Partial Pressure O2 111.9 mmHg (83.0-108.0) Arterial Blood HCO3 23.3 mmol/L (21.0-28.0) Arterial Blood Oxygen Saturation 97.4 % (94.0-98.0) Arterial Blood Base Excess -0.5 mmol/L (-2.0-3.0) Arterial Blood Oxyhemoglobin 96.9 % (94.0-98.0) Arterial Blood Carboxyhemoglobin 0.0 % (0.5-1.5) Arterial Blood Methemoglobin 0.5 % (0.0-1.5) [place] Test Modified Blood Gas Total Hemoglobin 8.90 g/dL (13.5-17.5) Blood Gas Set Respiration Rate 16.0 Blood Gas Modality Vent - ac FiO2 % 30.0 Blood Gas Tidal Volume 500.0 Blood Gas PEEP or CPAP 5.0 POC Glucose 76 mg/dl (70-106) White Blood Count 11.9 10^3/uL (4.4-10.8) Red Blood Count 2.93 10^6/uL (4.5-5.90) Hemoglobin 8.7 g/dL (13.5-17.5) Hematocrit 24.7 % (41.0-53.0) Mean Corpuscular Volume 84.3 fL (80.0-100.0) Mean Corpuscular Hemoglobin 29.5 pg (28.0-32.0) Mean Corpuscular Hemoglobin Concent 35.0 g/dL (32.0-36.0) Red Cell Distribution Width 15.2 % (11.8-14.3) Platelet Count 236 10^3/uL (140-450) Mean Platelet Volume 8.3 fL (6.9-10.8) Neutrophils (%) (Auto) 84.8 % (37.0-80.0) Lymphocytes (%) (Auto) 9.5 % (10.0-50.0) Monocytes (%) (Auto) 4.6 % (0.0-12.0) Eosinophils (%) (Auto) 0.8 % (0.0-7.0) Basophils (%) (Auto) 0.3 % (0.0-2.0) Neutrophils # (Auto) 10.1 10 ^3/uL (1.6-8.6) Lymphocytes # (Auto) 1.1 10 ^3/uL (0.4-5.4) Monocytes # (Auto) 0.6 10 ^3/uL (0-1.3) Eosinophils # (Auto) 0.1 10 ^3/uL (0-0.8) Basophils # (Auto) 0 10 ^3/uL (0-0.2) Nucleated Red Blood Cells 0.0 % Sodium Level 145 mmol/L (136-145) Potassium Level 4.2 mmol/L (3.5-5.1) Chloride Level 109 mmol/L (98-107) Carbon Dioxide Level 24 mmol/L (20-31) Anion Gap 12 (5-15) Blood Urea Nitrogen 61 mg/dL (9-23) Creatinine 3.14 mg/dL (0.700-1.30) Glomerular Filtration Rate Calc 21 mL/min (>90) BUN/Creatinine Ratio 19.4 (10.0-20.0) Serum Glucose 82 mg/dL (74-106) Calcium Level 8.9 mg/dL (8.7-10.4) Hemoglobin A1c 5.7 % A1C (<5.7) Magnesium Level 1.6 mg/dL (1.6-2.6) Total Bilirubin 0.4 mg/dL (0.2-1.0) Aspartate Amino Transferase (AST) 22 U/L (13-40) Alanine Aminotransferase (ALT) 20 U/L (7-40) Alkaline Phosphatase 92 U/L (46-116) Total Protein 5.9 g/dL (5.7-8.2) Albumin 3.5 g/dL (3.2-4.8) Thyroid Stimulating Hormone (TSH) 0.78 uIU/mL (0.55-4.78) Random Vancomycin Level 11.9 ug/mL (5-10) Test 09/01/24 15:00 09/01/24 04:49 08/31/24 13:15 08/31/24 12:44 Urine Creatinine 125.45 mg/dL (30.0-125.0) Urine Protein/Creatinine Ratio 0.43 Urine Sodium 20 mmol/L (40-220) Urine Total Protein 53.5 mg/dL (1-14) Lactic Acid Level 1.6 mmol/L (0.4-2.0) B-Type Natriuretic Peptide 42.82 pg/mL (0-100) Vitamin D 25-Hydroxy 11.3 ng/mL (30.0-100) Urine Color Light-yellow (Yellow) Urine Clarity Turbid (Clear) Urine pH 5.0 (5.0-9.0) Urine Specific [place] 1.016 (1.001-1.035) Urine Protein 1+ (Negative) Urine Ketones Negative (Negative) Urine Blood Trace /uL (Negative) Urine Nitrite Negative (Negative) Urine Bilirubin Negative (Negative) Urine Urobilinogen Normal mg/dL (Negative) Urine Leukocyte Esterase Negative /uL (Negative) Urine RBC 2 /hpf (0 - 3) Urine Microscopic WBC 3 /HPF (0-3) Urine Squamous Epithelial Cells None seen /hpf (<5) Urine Bacteria Few /hpf (None Seen) Urine Hyaline Casts Few /lpf (0 - 2) Urine Glucose Normal mg/dL (Normal) Troponin I High Sensitivity 46 ng/L (</=54) Test 08/31/24 10:52 08/31/24 10:43 08/31/24 09:42 Free Prostate Specific Antigen 3.84 ng/mL (N/A) Percent Free Prostate Specific Ag 23.0 % (.) Prostate Specific Antigen Total 16.7 ng/mL (0.0-4.0) Blood Gas Critical Value Read Back Yes Blood Gas Notified Whom Roland puentes Blood Gas Notified Time [id number] Blood Gas Notified By Adrian bhagat Differential Total Cells Counted 100.0 (100) Neutrophils % (Manual) 71 (37.0-80.0) Band Neutrophils % (Manual) 22 Lymphocytes % (Manual) 6 (10.0-50.0) Monocytes % (Manual) 1 (0-12) Eosinophils % (Manual) 0 (0-7) Basophils % (Manual) 0 (0.0-2.0) Metamyelocytes % (manual) 0 Myelocytes % (Manual) 0 Promyelocytes % (Manual) 0 Blast Cells % (Manual) 0 Reactive Lymphocytes 0 Platelet Estimate Adequate Other Laboratory Tests 09/03/24 04:51 Brief Hx & Hospital Course: 69-year-old gentleman with history of dementia admitted to the hospital from the emergency room with altered mental status. Patient was found to be in congestive heart failure and sepsis and septic encephalopathy with UTI and pneumonia. Patient has also chronic kidney disease stage 4. Family decided to stop all aggressive treatment and to make patient comfortable and DNR. Family requesting to be discharged on hospice. Condition at Discharge: Guarded Final Diagnosis/Problems List Altered mental status Sepsis with septic encephalopathy Acute on chronic heart failure Dementia Chronic kidney disease stage 4 Discharge Disposition: Hospice- Medical Facility Discharge Instruct/Medications Diet: See Comment (As tolerated) Activity: Bed rest Activity comment: On hospice Follow Up/Referral: On hospice Medications: On hospice Discharge Statement: "Patient was advised to return to the ER or call 911 if any headaches, dizziness, shortness of breath, chest pain, abdominal pain, bleeding, fevers, or worsening of medical condition. Patient was counseled about treatment plan, medications, possible side effects, patientverbalized understanding. All questions were answered to the best of my ability. This discharge took greater then 30 minutes in planning, reviewing documentation, counseling the patient, and discussing with other team members." ASSESSMENT ASSESSMENT Assessment Date of Service: Sep 04, 2024 Billing Provider: CRISTOBAL LEIVA MD Common Visit Codes: [id number]/[id number] DISCH DAY <30MIN CRISTOBAL LEIVA MD Sep 04, 2024 17:11
== END 2024-09-04 20:06 | disposition hospice, inpatient (51) | DRG 871 ==
LOC: ER 08:17 → EDBD 08:17 → EDUNIT# 14:46 → OVERFLOW 14:46 → ICU CENTRL 21:20 → CENTRAL 09-03 22:33
PROVIDERS: ADMIT Nurse Practitioner Acute Care; ATTEND Nurse Practitioner Acute Care
PROC: 02HV33Z Insertion of Infusion Device into Superior Vena Cava, Percutaneous Approach (ICD-10-PCS; principal; 2024-08-31)
PROC: 0BH17EZ Insertion of Endotracheal Airway into Trachea, Via Natural or Artificial Opening (ICD-10-PCS; 2024-08-31)
PROC: 5A1945Z Respiratory Ventilation, 24-96 Consecutive Hours (ICD-10-PCS; 2024-08-31)
DX: A41.81 Sepsis due to Enterococcus (principal); G93.41 Metabolic encephalopathy; J96.01 Acute respiratory failure with hypoxia; R65.21 Severe sepsis with septic shock; J15.8 Pneumonia due to other specified bacteria; N17.0 Acute kidney failure with tubular necrosis; E44.0 Moderate protein-calorie malnutrition; E87.20 Acidosis, unspecified; N18.4 Chronic kidney disease, stage 4 (severe); I13.0 Hypertensive heart and chronic kidney disease with heart failure and stage 1 through stage 4 chronic kidney disease, or unspecified chronic kidney disease; N39.0 Urinary tract infection, site not specified; E86.0 Dehydration; Z66 Do not resuscitate; Z51.5 Encounter for palliative care; I95.9 Hypotension, unspecified; E78.5 Hyperlipidemia, unspecified; C61 Malignant neoplasm of prostate; E03.9 Hypothyroidism, unspecified; F03.90 Unspecified dementia, unspecified severity, without behavioral disturbance, psychotic disturbance, mood disturbance, and anxiety; E11.22 Type 2 diabetes mellitus with diabetic chronic kidney disease; E55.9 Vitamin D deficiency, unspecified; N28.89 Other specified disorders of kidney and ureter; I50.9 Heart failure, unspecified; Z68.20 Body mass index [BMI] 20.0-20.9, adult; Z79.899 Other long term (current) drug therapy; Z86.73 Personal history of transient ischemic attack (TIA), and cerebral infarction without residual deficits
CPT/HCPCS: 31500; 36415; 36556; 36600; 70450; 71045; 76775; 80048; 80053; 80202; 81001; 82306; 82570; 82805; 82962; 83036; 83605; 83735; 83880; 84154; 84156; 84300; 84443; 84484; 85007; 85025; 85027; 87040; 87070; 87077; 87081; 87086; 87186; 87205; 93005; 93306; 94002; 94003; 94640; 99291; 99292; G0378; J1815; J2405; J2470; J2543